=== PATIENT | female | born 1970 | race Caucasian/White ===

== ENCOUNTER 2023-09-29 19:03 | Outpatient (CLI) | payer BC, SELFPAY ==
[2023-09-29 19:01] LABS: Basophils # 0.1 K/mm3 (0-0.2); Basophils % 1.1 % (0.1-2.0); Eosinophils % 10.5 % (0.1-12.0); Hematocrit 44.4 % (37.0-47.0); Hemoglobin 14.5 g/dL (12.2-16.2); Lymphocytes # 2.8 K/mm3 (0.7-4.5); Lymphocytes % 29.2 % (10-50); Mean Corpuscular HGB Conc 32.6 g/dL (31.8-35.4); Mean Corpuscular Hemoglobin 31.5 pg (27.0-31.2); Mean Corpuscular Volume 96.5 fl (81-99); Mean Platelet Volume 9.8 fl (7.4-10.4); Monocytes # 0.9 K/mm3 (0.1-1.0); Monocytes % 9.1 % (1.7-9.3); Neutrophils # 4.8 K/mm3 (1.8-7.8); Platelet Count 301 K/mm3 (142-424); Red Cell Distribution Width 13.9 % (11.5-17.5); White Blood Count 9.6 K/mm3 (4.8-10.8)
[2023-09-29 19:08] LABS: Chloride 103 mmol/L (98-107)
[2023-09-29 19:09] LABS: Potassium 4.1 mmoL/L (3.5-5.1); Sodium 139 mmol/L (136-145)
[2023-09-29 19:11] LABS: Blood Urea Nitrogen 15 mg/dl (7-17); Estimated Glomerular Filt Rate 88 ml/min (>60); GFR (African American) 106 ML/MIN (>60)
[2023-09-29 19:12] LABS: Alanine Aminotransferase 26 U/L (12-78); Albumin Level 4.2 g/dl (3.5-5.0); Albumin/Globulin Ratio 1.3 (1.1-1.8); Alkaline Phosphatase 91 U/L (38-126); Anion Gap 10.1 mEq/L (5-15); Aspartate Amino Transferase 32 U/L (14-36); Bilirubin,Total 0.4 mg/dl (0.2-1.3); Calcium 9.2 mg/dl (8.4-10.2); Carbon Dioxide 30 mmol/L (22.0-30.0); Chol/HDL Ratio 4.6 (1-3.5); Cholesterol 222 mg/dl (140-200); Globulin 3.3 g/dL (1.3-3.2); Glucose 96 mg/dl (74-100); HDL Cholesterol 48 mg/dl (40-60); Total Protein,Serum 7.5 g/dl (6.3-8.2); Triglycerides 212 mg/dl (30-150); VLDL Cholesterol 42 mg/dL (0-40)
[2023-09-29 19:25] LABS: Direct LDL Cholesterol 111.86 mg/dL (100-129)
[2023-09-29 19:28] LABS: 25-OH Vitamin D, Total 31.5 ng/mL (30-100)
[2023-09-29 19:43] LABS: Thyroid Stimulating Hormone 1.48 uIU/mL (0.465-4.68)
[2023-09-29 20:29] LABS: Hemoglobin A1C 5.7 % (4.0-6.0)
== END 2023-09-29 23:59 ==
LOC: LAB.DROPOF 19:03
PROVIDERS: PCP Student in an Organized Health Care Education/Training Program; Visit Provider Student in an Organized Health Care Education/Training Program
DX: I10 Essential (primary) hypertension (principal); R09.89 Other specified symptoms and signs involving the circulatory and respiratory systems; E66.9 Obesity, unspecified; Z68.38 Body mass index [BMI] 38.0-38.9, adult; Z79.899 Other long term (current) drug therapy
CPT/HCPCS: 80053; 80061; 82306; 83036; 84443; 85025

== ENCOUNTER 2023-11-29 13:13 | Inpatient (IN) | payer BC, SELFPAY ==
[2023-11-29] VITALS (10 sets, daily range): BP systolic 137–181; BP diastolic 75–108; PULSE 69–86; RESP 15–20; TEMP 36.5–36.8; O2SAT 96–100; BMI 37.6; BMI 36.9
[2023-11-29 13:57] LABS: Chloride 103 mmol/L (98-107)
--- NOTE | 2023-11-29 13:57 | HMH.EDGENADL ---
Discharge Plan Disposition Chief Complaint: Nausea/Vomiting/Diarrhea Prescriptions Prescriptions: No Action amlodipine 5 mg tablet 5 mg PO DAILY Qty: 30 2RF azelastine 137 mcg (0.1 %) aerosol,spray 1 spray intranasal BID Qty: 30 3RF Rx Instructions: administer into each nostril Referrals Follow up/Referrals: Diann Robins PA [Primary Care Provider] - See instructions Instructions Patient Instructions: DI for Diarrhea and Traveler's Diarrhea -- Adult, DI for Diarrhea and Traveler's Diarrhea -- Child, DI for Nausea -- Adult, DI for Nausea -- Child Discharge ED Provider: Kandice Reyes General Adult HPI <Kandice Reyes DO - Last Filed: 11/29/23 15:33> General Chief complaint: Nausea/Vomiting/Diarrhea Stated complaint: vomiting, diarrhea, weakness Time Seen by Provider: 11/29/23 13:31 Mode of Arrival: Ambulatory Source of Information: Patient Limitations: No Limitations Description of Symptoms (Recalled from ER Triage Doc. by RN): pt presents to ED with c/o nausea, vomitting diarrhea that began thursday. pt reports she took the first ever dose of semaglutide on thursday. History of Present Illness HPI narrative: This patient is a 53-year-old female with history of VERÓNICA, hypertension, and obesity presenting to the emergency department for evaluation with concern for nausea, vomiting, and diarrhea that started on Thursday. She notes that she took her first dose of semaglutide on Thursday, and she has felt awful since then. She is unsure if it is related. She notes that she has had persistent upper abdominal pain in the epigastric region since then. Emesis is nonbloody nonbilious and diarrhea is nonbloody. No other concerns noted at this time. Related Data Previous Rx's Medication Instructions Recorded amlodipine 5 mg tablet 5 mg PO DAILY #30 tabs 09/29/23 azelastine 137 mcg (0.1 %) nasal 1 spray intranasal BID #30 mL 10/15/23 spray aerosol Allergies Allergy/AdvReac Type Severity Reaction Status Date / Time lisinopril AdvReac Mild Cough Verified 11/16/23 15:42 PFSH <DO Morenita Espino Last Filed: 11/29/23 15:33> PFS Disclaimer: The information contained in this section may have been updated after the patient was seen, as this information can be updated by other users. Medical History Sinusitis Cryptic tonsil Goiter Hypertension Melanoma Surgical History History of intestinal surgery H/O endoscopic sinus surgery H/O: hysterectomy H/O section Hx of appendectomy History of total left knee replacement Family History Mother Hypertension Father Hypertension Cancer Social History Smoking Status: Former smoker alcohol intake: never current occupational status: employed Travel in the last 8 weeks: None <Kandice Reyes DO - Last Filed: 11/29/23 15:33> ROS Obtained: Yes All systems reviewed & no additional complaints except as documented Physical Exam <Kandice Reyes DO - Last Filed: 11/29/23 15:33> General General appearance: alert and in no apparent distress Head Head exam: atraumatic and normocephalic Eye Eye exam: Present normal appearance, PERRL and EOMI ENT ENT exam: Present normal exam, normal oropharynx, mucous membranes moist and normal external ear exam Neck Neck exam: Present normal inspection, full ROM and trachea midline; Absent tenderness Chest Chest inspection: Present normal inspection and symmetric chest wall rise; Absent tenderness Respiratory Respiratory exam: Present normal lung sounds bilaterally; Absent respiratory distress, wheezes, stridor or accessory muscle use Cardiovascular Cardiovascular exam: Present regular rate and normal rhythm Abdominal Exam Abdominal exam: Present soft; Absent distention, tenderness or guarding Extremities Exam Extremities exam: Present normal inspection, full ROM and normal capillary refill; Absent tenderness or edema Back Exam Back exam: Present normal inspection and full ROM; Absent tenderness Neurological Exam Neurological exam: Present alert, oriented X3, CN II-XII intact and normal gait; Absent motor sensory deficit Psychiatric Psychiatric exam: Present normal affect and normal mood Skin Skin exam: Present warm and dry Medical Decision Making <Kandice Reyes DO - Last Filed: 11/29/23 15:33> Medical Records Medical records reviewed: Yes I reviewed the patient's medical records. Jonh Inquiry Pt receiving controlled substance: No Vital Signs: 11/29/23 13:14 11/29/23 15:44 11/29/23 17:15 Temperature 97.7 F Temperature Source Oral Pulse Rate 74 85 Pulse Rate [Left Radial] 85 Respiratory Rate 16 Blood Pressure 141/91 H 164/101 H Blood Pressure [Right Arm] 141/96 H Blood Pressure Mean [Right Arm] 111 02 Sat by Pulse Oximetry 96 98 100 Oxygen Delivery Method Room Air Room Air Lab Data Lab results reviewed: Yes I reviewed the patient's lab results. Lab Results 11/29/23 13:28: WBC 13.2 H, RBC 4.94, Hgb 15.9, Hct 49.1 H, MCV 99.4 H, MCH 32.2 H, MCHC 32.4, RDW 14.0, Plt Count 382, MPV 9.7, Neut % (Auto) 81.5 H, Lymph % (Auto) 10.7, [place] % (Auto) 5.9, Eos % (Auto) 1.3, Baso % (Auto) 0.6, Neut # (Auto) 10.8 H, Lymph # (Auto) 1.4, [place] # (Auto) 0.8, Eos # (Auto) 0.2, Baso # (Auto) 0.1, Sodium 140, Potassium 3.8, Chloride 103, Carbon Dioxide 26, Anion Gap 14.8, BUN 28 H, Creatinine 0.80, Estimated Creat Clear 120, Estimated GFR 75, Est GFR ( Amer) 91, Glucose 124 H, Calcium 9.6, Total Bilirubin 0.6, AST 73 H, ALT 112 H, Alkaline Phosphatase 120, Total Protein 8.5 H, Albumin 4.6, Globulin 3.9 H, Albumin/Globulin Ratio 1.2, Lipase 65 11/29/23 14:46: Urine Color Dark yellow, Urine Appearance Clear, Urine pH 6.0, Ur Specific [place] >= 1.030, Urine Protein 1+, Urine Glucose (UA) Negative, Urine Ketones Trace, Urine Blood Negative, Urine Nitrate Negative, Urine Bilirubin 2+ A, Urine Urobilinogen 1.0, Ur Leukocyte Esterase Trace, Urine RBC None, Urine WBC Occasional, Ur Squamous Epith Cells 3-5, Urine Bacteria Trace 11/29/23 13:28 11/29/23 13:28 Orders (Tests/Meds): ED MEDICATIONS Generic Name Dose Route Start Last Admin Trade Name Freq PRN Reason Stop Dose Admin Heparin Sodium (Porcine) 5,000 unit 11/29/23 17:30 Heparin Sodium 5,000 Unit/Ml Vial SQ 12/29/23 17:29 Q8H CHING Lactated Ringer's 1,000 mls @ 150 mls/hr 11/29/23 17:15 11/29/23 17:22 Lactated Ringer's 1000 Ml Bag IV 12/29/23 17:14 150 mls/hr .Q6H40M CHING Administration Sodium Chloride 1,000 mls @ 75 mls/hr 11/29/23 17:30 Sod Chlor 0.9% 1000ml Bag IV 12/29/23 17:29 .[id number] CHING Morphine Sulfate 2 mg 11/29/23 17:30 Morphine 2mg/Ml Syringe IV 12/29/23 17:29 Q4H PRN Severe Pain (7-10) Ondansetron HCl 4 mg 11/29/23 17:30 Ondansetron 4mg/2ml Vial IV 12/29/23 17:29 Q8HP PRN Nausea Sodium Chloride 10 ml 11/29/23 15:27 11/29/23 15:29 Sodium Chloride 0.9% 10ml Syr (Rad Only) IV 12/29/23 15:26 10 ml NEEDED PRN Administration Maintain IV Site Discontinued Medications Generic Name Dose Route Start Last Admin Trade Name Jose Daniel PRN Reason Stop Dose Admin Lactated Ringer's 1,000 mls @ 999 mls/hr 11/29/23 13:49 11/29/23 14:03 Lactated Ringer's 1000 Ml Bag IV 11/29/23 14:49 999 mls/hr .Q1H1M ONE Administration Iopamidol 75 ml 11/29/23 15:27 11/29/23 15:29 Iopamidol-370 (76%);100ml Bottle IV 11/29/23 15:28 75 ml ONCE ONE Administration Ketorolac Tromethamine 15 mg 11/29/23 13:49 11/29/23 14:03 Ketorolac 30mg/Ml Vial IV 11/29/23 13:50 15 mg ONCE ONE Administration Morphine Sulfate 4 mg 11/29/23 17:09 11/29/23 17:25 Morphine 4mg/Ml Syringe IV 11/29/23 17:10 4 mg ONCE ONE Administration Ondansetron HCl 4 mg 11/29/23 13:49 11/29/23 14:03 Ondansetron 4mg/2ml Vial IV 11/29/23 13:50 4 mg ONCE ONE Administration Ondansetron HCl 4 mg 11/29/23 17:09 11/29/23 17:22 Ondansetron 4mg/2ml Vial IV 11/29/23 17:10 4 mg ONCE ONE Administration ORDERS Category Date Time Status CT abdomen pelvis w con Stat Cat Scan 11/29/23 14:28 Completed Consult to General Surgery [CONS] Routine Cons 11/29/23 17:27 Ordered Basic Metabolic Panel AMLAB Lab 11/30/23 06:00 Ordered Basic Metabolic Panel AMLAB Lab 12/01/23 06:00 Ordered Basic Metabolic Panel AMLAB Lab 12/02/23 06:00 Ordered Complete Blood Count Auto Diff AMLAB Lab 11/30/23 06:00 Ordered Complete Blood Count Auto Diff AMLAB Lab 12/01/23 06:00 Ordered Complete Blood Count Auto Diff AMLAB Lab 12/02/23 06:00 Ordered Complete Blood Count Auto Diff Stat Lab 11/29/23 13:28 Completed Comprehensive Metabolic Panel Stat Lab 11/29/23 13:28 Completed Lipase Stat Lab 11/29/23 13:28 Completed Urinalysis and Microscopic Stat Lab 11/29/23 14:46 Completed Medical Decision Narrative: In summary, this patient is a 53-year-old female presenting to the Emergency Department for evaluation of nausea, vomiting, and diarrhea. Differential diagnoses considered include but are not limited to medication adverse reaction, gastroenteritis, colitis, pancreatitis. Ruling out the most morbid conditions drove assessment. On exam, the patient is nontoxic-appearing with benign abdominal exam. Doubt surgical intra-abdominal pathology based on clinical exam. Workup included CBC, CMP, lipase, urinalysis. She is given a bolus of IV fluids as well as IV Toradol and Zofran for symptomatic improvement. On reassessment, the patient is resting comfortably but has had no significant improvement in symptoms. Labs demonstrated very mild transaminitis as well as mild leukocytosis without other acute concerns. This is nonspecific, but could point to intra-abdominal pathology. Given this, CT scan of the abdomen and pelvis with IV contrast was ordered. Patient care signed out to the oncoming provider, Dr. Emerson, pending CT and disposition. <Riley Emerson MD - Last Filed: 11/29/23 17:45> Vital Signs: 11/29/23 13:14 11/29/23 15:44 11/29/23 17:15 Temperature 97.7 F Temperature Source Oral Pulse Rate 74 85 Pulse Rate [Left Radial] 85 Respiratory Rate 16 Blood Pressure 141/91 H 164/101 H Blood Pressure [Right Arm] 141/96 H Blood Pressure Mean [Right Arm] 111 02 Sat by Pulse Oximetry 96 98 100 Oxygen Delivery Method Room Air Room Air Lab Data Lab Results 11/29/23 13:28: WBC 13.2 H, RBC 4.94, Hgb 15.9, Hct 49.1 H, MCV 99.4 H, MCH 32.2 H, MCHC 32.4, RDW 14.0, Plt Count 382, MPV 9.7, Neut % (Auto) 81.5 H, Lymph % (Auto) 10.7, [place] % (Auto) 5.9, Eos % (Auto) 1.3, Baso % (Auto) 0.6, Neut # (Auto) 10.8 H, Lymph # (Auto) 1.4, [place] # (Auto) 0.8, Eos # (Auto) 0.2, Baso # (Auto) 0.1, Sodium 140, Potassium 3.8, Chloride 103, Carbon Dioxide 26, Anion Gap 14.8, BUN 28 H, Creatinine 0.80, Estimated Creat Clear 120, Estimated GFR 75, Est GFR ( Amer) 91, Glucose 124 H, Calcium 9.6, Total Bilirubin 0.6, AST 73 H, ALT 112 H, Alkaline Phosphatase 120, Total Protein 8.5 H, Albumin 4.6, Globulin 3.9 H, Albumin/Globulin Ratio 1.2, Lipase 65 11/29/23 14:46: Urine Color Dark yellow, Urine Appearance Clear, Urine pH 6.0, Ur Specific [place] >= 1.030, Urine Protein 1+, Urine Glucose (UA) Negative, Urine Ketones Trace, Urine Blood Negative, Urine Nitrate Negative, Urine Bilirubin 2+ A, Urine Urobilinogen 1.0, Ur Leukocyte Esterase Trace, Urine RBC None, Urine WBC Occasional, Ur Squamous Epith Cells 3-5, Urine Bacteria Trace Orders (Tests/Meds): ED MEDICATIONS Generic Name Dose Route Start Last Admin Trade Name Freq PRN Reason Stop Dose Admin Heparin Sodium (Porcine) 5,000 unit 11/29/23 17:30 Heparin Sodium 5,000 Unit/Ml Vial SQ 12/29/23 17:29 Q8H CHING Lactated Ringer's 1,000 mls @ 150 mls/hr 11/29/23 17:15 11/29/23 17:22 Lactated Ringer's 1000 Ml Bag IV 12/29/23 17:14 150 mls/hr .Q6H40M CHING Administration Sodium Chloride 1,000 mls @ 75 mls/hr 11/29/23 17:30 Sod Chlor 0.9% 1000ml Bag IV 12/29/23 17:29 .[id number] CHING Morphine Sulfate 2 mg 11/29/23 17:30 Morphine 2mg/Ml Syringe IV 12/29/23 17:29 Q4H PRN Severe Pain (7-10) Ondansetron HCl 4 mg 11/29/23 17:30 Ondansetron 4mg/2ml Vial IV 12/29/23 17:29 Q8HP PRN Nausea Sodium Chloride 10 ml 11/29/23 15:27 11/29/23 15:29 Sodium Chloride 0.9% 10ml Syr (Rad Only) IV 12/29/23 15:26 10 ml NEEDED PRN Administration Maintain IV Site Discontinued Medications Generic Name Dose Route Start Last Admin Trade Name Freq PRN Reason Stop Dose Admin Lactated Ringer's 1,000 mls @ 999 mls/hr 11/29/23 13:49 11/29/23 14:03 Lactated Ringer's 1000 Ml Bag IV 11/29/23 14:49 999 mls/hr .Q1H1M ONE Administration Iopamidol 75 ml 11/29/23 15:27 11/29/23 15:29 Iopamidol-370 (76%);100ml Bottle IV 11/29/23 15:28 75 ml ONCE ONE Administration Ketorolac Tromethamine 15 mg 11/29/23 13:49 11/29/23 14:03 Ketorolac 30mg/Ml Vial IV 11/29/23 13:50 15 mg ONCE ONE Administration Morphine Sulfate 4 mg 11/29/23 17:09 11/29/23 17:25 Morphine 4mg/Ml Syringe IV 11/29/23 17:10 4 mg ONCE ONE Administration Ondansetron HCl 4 mg 11/29/23 13:49 11/29/23 14:03 Ondansetron 4mg/2ml Vial IV 11/29/23 13:50 4 mg ONCE ONE Administration Ondansetron HCl 4 mg 11/29/23 17:09 11/29/23 17:22 Ondansetron 4mg/2ml Vial IV 11/29/23 17:10 4 mg ONCE ONE Administration ORDERS Category Date Time Status CT abdomen pelvis w con Stat Cat Scan 11/29/23 14:28 Completed Consult to General Surgery [CONS] Routine Cons 11/29/23 17:27 Ordered Basic Metabolic Panel AMLAB Lab 11/30/23 06:00 Ordered Basic Metabolic Panel AMLAB Lab 12/01/23 06:00 Ordered Basic Metabolic Panel AMLAB Lab 12/02/23 06:00 Ordered Complete Blood Count Auto Diff AMLAB Lab 11/30/23 06:00 Ordered Complete Blood Count Auto Diff AMLAB Lab 12/01/23 06:00 Ordered Complete Blood Count Auto Diff AMLAB Lab 12/02/23 06:00 Ordered Complete Blood Count Auto Diff Stat Lab 11/29/23 13:28 Completed Comprehensive Metabolic Panel Stat Lab 11/29/23 13:28 Completed Lipase Stat Lab 11/29/23 13:28 Completed Urinalysis and Microscopic Stat Lab 11/29/23 14:46 Completed Medical Decision Narrative: In summary, this patient is a 53-year-old female presenting to the Emergency Department for evaluation of nausea, vomiting, and diarrhea. Differential diagnoses considered include but are not limited to medication adverse reaction, gastroenteritis, colitis, pancreatitis. Ruling out the most morbid conditions drove assessment. On exam, the patient is nontoxic-appearing with benign abdominal exam. Doubt surgical intra-abdominal pathology based on clinical exam. Workup included CBC, CMP, lipase, urinalysis. She is given a bolus of IV fluids as well as IV Toradol and Zofran for symptomatic improvement. On reassessment, the patient is resting comfortably but has had no significant improvement in symptoms. Labs demonstrated very mild transaminitis as well as mild leukocytosis without other acute concerns. This is nonspecific, but could point to intra-abdominal pathology. Given this, CT scan of the abdomen and pelvis with IV contrast was ordered. Patient care signed out to the oncoming provider, Dr. Emerson, pending CT and disposition. Reassessment this is Dr. Emerson 5:44 PM I took over from Dr. Reyes CT scan performed which I personally interpreted also discussed with the radiologist which shows his small bowel obstruction. From historical standpoint this is most likely because from adhesions. No obvious transition point or high-grade. Serial abdominal exams are relatively benign patient not actively vomiting stomach is decompressed on CT scan no indication for decompression with NG tube at the moment. She will need to be admitted for surgical consultation IV fluids bowel rest and to make sure that she has progression and improvement in her symptoms. I discussed the case with the patient as well as with Dr. Amador [facility] who agreed to be admitted for further evaluation and management. Critical Care <Kandice Reyes DO - Last Filed: 11/29/23 15:33> Critical Care Time Critical Care Time: No <Riley Emerson MD - Last Filed: 11/29/23 17:45> Critical Care Time Critical Care Time: Yes Attestation: On 11/29/23, the high probability of a clinically significant, sudden or life threatening deterioration of the following system(s) required my full and direct attention, intervention and personal management. The time I documented below is in addition to time spent performing reported procedures but includes the following listed in this critical care notation. Total Time Total Critical Care Time: 35
[2023-11-29 13:58] LABS: Potassium 3.8 mmoL/L (3.5-5.1); Sodium 140 mmol/L (136-145)
[2023-11-29 14:00] LABS: Alanine Aminotransferase 112 U/L (12-78); Albumin Level 4.6 g/dl (3.5-5.0); Albumin/Globulin Ratio 1.2 (1.1-1.8); Alkaline Phosphatase 120 U/L (38-126); Aspartate Amino Transferase 73 U/L (14-36); Bilirubin,Total 0.6 mg/dl (0.2-1.3); Blood Urea Nitrogen 28 mg/dl (7-17); Calcium 9.6 mg/dl (8.4-10.2); Creatinine Clearance Estimated 120 mL/min (50-200); Estimated Glomerular Filt Rate 75 ml/min (>60); GFR (African American) 91 ML/MIN (>60); Globulin 3.9 g/dL (1.3-3.2); Glucose 124 mg/dl (74-100); Lipase 65 U/L (23-300); Total Protein,Serum 8.5 g/dl (6.3-8.2)
[2023-11-29] MEDS: ONDANSETRON 4MG/2ML VIAL 4 MG IV ×2 (14:03→17:22)
[2023-11-29] MEDS: LACTATED RINGERS 1000ML 1,000 ML 999 ML IV (14:03)
[2023-11-29] MEDS: KETOROLAC 30MG/ML VIAL 15 MG IV (14:03)
[2023-11-29 14:17] LABS: Basophils # 0.1 K/mm3 (0-0.2); Basophils % 0.6 % (0.1-2.0); Eosinophils # 0.2 K/mm3 (0.0-0.4); Eosinophils % 1.3 % (0.1-12.0); Hematocrit 49.1 % (37.0-47.0); Hemoglobin 15.9 g/dL (12.2-16.2); Lymphocytes # 1.4 K/mm3 (0.7-4.5); Lymphocytes % 10.7 % (10-50); Mean Corpuscular HGB Conc 32.4 g/dL (31.8-35.4); Mean Corpuscular Hemoglobin 32.2 pg (27.0-31.2); Mean Corpuscular Volume 99.4 fl (81-99); Mean Platelet Volume 9.7 fl (7.4-10.4); Monocytes # 0.8 K/mm3 (0.1-1.0); Monocytes % 5.9 % (1.7-9.3); Neutrophils # 10.8 K/mm3 (1.8-7.8); Neutrophils % 81.5 % (37.0-80.0); Platelet Count 382 K/mm3 (142-424); Red Blood Count 4.94 M/mm3 (4.20-5.40); White Blood Count 13.2 K/mm3 (4.8-10.8)
--- NOTE | 2023-11-29 14:28 | CT_ITS ---
PROCEDURE INFORMATION: Exam: CT Abdomen And Pelvis With Contrast Exam date and time: 11/29/2023 3:18 PM Age: 53 years old Clinical indication: Abdominal pain; Prior surgery; Surgery date: 6+ months; Surgery type: Appendix & gb removed, bowel resection, and hysterectomy. ; Additional info: Upper abd pain, intractable n/v TECHNIQUE: Imaging protocol: Computed tomography of the abdomen and pelvis with contrast. Radiation optimization: All CT scans at this facility use at least one of these dose optimization techniques: automated exposure control; mA and/or kV adjustment per patient size (includes targeted exams where dose is matched to clinical indication); or iterative reconstruction. Contrast material: ISOVUE; Contrast volume: 75 ml; Contrast route: IV; COMPARISON: No relevant prior studies available. FINDINGS: Liver: Normal. No mass. Gallbladder and bile ducts: Previous cholecystectomy. Pancreas: Normal. No ductal dilation. Spleen: Normal. No splenomegaly. Adrenal glands: Normal. No mass. Kidneys and ureters: Simple 1.5 cm cortical renal cyst midpole right kidney. No hydronephrosis. Stomach and bowel: Distended small bowel loops containing fluid in the mid and left abdomen, measuring up to 3.8 cm. Transition zone not definitively seen. Colon decompressed. Compatible with small bowel obstruction. Bowel anastomosis in the right lower quadrant. Appendix: No evidence of appendicitis. Intraperitoneal space: Minimal pelvic ascites. Vasculature: Unremarkable. No abdominal aortic aneurysm. Lymph nodes: Unremarkable. No enlarged lymph nodes. Urinary bladder: Unremarkable as visualized. Reproductive: Previous hysterectomy. Bones/joints: Unremarkable. No acute fracture. Soft tissues: Unremarkable. IMPRESSION: 1. Distended small bowel loops containing fluid in the mid and left abdomen, measuring up to 3.8 cm. Transition zone not definitively seen. Colon decompressed. Compatible with small bowel obstruction. 2. Minimal pelvic ascites. COMMENTS: Consistent with the [employer]'s Incidental Findings Committee white paper (J Am Jenaro Radiol 2018): Any incidental renal lesion less than 1 cm or classified as too small to characterize, or any incidental cystic renal lesion characterized as simple-appearing, is likely benign. No follow-up imaging is recommended for these lesions per consensus recommendations based on imaging criteria.
[2023-11-29 14:29] LABS: Anion Gap 14.8 mEq/L (5-15); Carbon Dioxide 26 mmol/L (22.0-30.0)
[2023-11-29 15:04] LABS: Appearance,Urine CLEAR (Clear); Blood, Urine Negative (Negative); Color,Urine DARK YELLOW (Yellow); Glucose,Urine (UA) Negative (Negative); Ketones,Urine TRACE (Negative); Microscopic, Urine URINE MICROSCOPIC (MICROSCOPIC); Nitrate,Urine Negative (Negative); Protein,Urine 1+ (Negative); Specific Gravity, Urine >= 1.030 (1.005-1.030)
[2023-11-29 15:05] LABS: Leukocyte Esterase,Urine TRACE (Negative)
[2023-11-29 15:11] LABS: Bilirubin,Urine 2+ (Negative)
[2023-11-29] MEDS: IOPAMIDOL-370 (76%);100ML BOTTLE 75 ML IV (15:29)
[2023-11-29] MEDS: SODIUM CHLORIDE 0.9% 10ML SYR (RAD ONLY) 10 ML IV (15:29)
[2023-11-29 15:53] LABS: Bacteria,Urine Trace /lpf; WBC,Urine Occasional #/hpf (0-3)
[2023-11-29] MEDS: LACTATED RINGERS 1000ML 1,000 ML 150 ML IV (17:22)
[2023-11-29] MEDS: MORPHINE 4MG/ML SYRINGE 4 MG IV (17:25)
--- NOTE | 2023-11-29 17:26 | PC.NURSE ---
speaking with hospitalist about admission
--- NOTE | 2023-11-29 17:39 | PC.NURSE ---
housekeeping department worker aware of admission of SBO
--- NOTE | 2023-11-29 18:19 | PC.NURSE ---
report called to hilario on second floor
--- NOTE | 2023-11-29 18:23 | EXP.HP ---
History of Present Illness *Admission Date: 11/29/23 *Reason for visit:: abdominal pain [facility]SH [facility] Disclaimer: The information contained in this section may have been updated after the patient was seen, as this information can be updated by other users. Medical History Sinusitis Cryptic tonsil Goiter Hypertension Melanoma Surgical History History of intestinal surgery H/O endoscopic sinus surgery H/O: hysterectomy H/O section Hx of appendectomy History of total left knee replacement Family History Mother Hypertension Father Hypertension Cancer Social History Smoking Status: Former smoker alcohol intake: never current occupational status: employed Travel in the last 8 weeks: None Review of Systems Review of Systems Review of systems (narrative): as per hpi Meds Home Medications and Allergies Home Medications Medication Instructions Recorded Confirmed Type amlodipine 5 mg tablet 5 mg PO DAILY #30 tabs 09/29/23 11/16/23 Rx azelastine 137 mcg (0.1 %) nasal 1 spray intranasal BID #30 mL 10/15/23 11/16/23 Rx spray aerosol New Prescriptions to Start Prescriptions: Allergies Allergy/AdvReac Type Severity Reaction Status Date / Time lisinopril AdvReac Mild Cough Verified 11/16/23 15:42 Exam Data for Last 24 hours Vital signs and Labs for Last 24 Hours: Temp Pulse Resp BP Pulse Ox O2 Del Method 97.7 F 78 20 164/95 H 97 Room Air 11/29/23 13:14 11/29/23 18:15 11/29/23 18:00 11/29/23 18:15 11/29/23 18:15 11/29/23 15:44 Laboratory Results - last 24 hr 11/29/23 13:28: WBC 13.2 H, RBC 4.94, Hgb 15.9, Hct 49.1 H, MCV 99.4 H, MCH 32.2 H, MCHC 32.4, RDW 14.0, Plt Count 382, MPV 9.7, Neut % (Auto) 81.5 H, Lymph % (Auto) 10.7, [place] % (Auto) 5.9, Eos % (Auto) 1.3, Baso % (Auto) 0.6, Neut # (Auto) 10.8 H, Lymph # (Auto) 1.4, [place] # (Auto) 0.8, Eos # (Auto) 0.2, Baso # (Auto) 0.1, Sodium 140, Potassium 3.8, Chloride 103, Carbon Dioxide 26, Anion Gap 14.8, BUN 28 H, Creatinine 0.80, Estimated Creat Clear 120, Estimated GFR 75, Est GFR ( Amer) 91, Glucose 124 H, Calcium 9.6, Total Bilirubin 0.6, AST 73 H, ALT 112 H, Alkaline Phosphatase 120, Total Protein 8.5 H, Albumin 4.6, Globulin 3.9 H, Albumin/Globulin Ratio 1.2, Lipase 65 11/29/23 14:46: Urine Color Dark yellow, Urine Appearance Clear, Urine pH 6.0, Ur Specific [place] >= 1.030, Urine Protein 1+, Urine Glucose (UA) Negative, Urine Ketones Trace, Urine Blood Negative, Urine Nitrate Negative, Urine Bilirubin 2+ A, Urine Urobilinogen 1.0, Ur Leukocyte Esterase Trace, Urine RBC None, Urine WBC Occasional, Ur Squamous Epith Cells 3-5, Urine Bacteria Trace I & O for Last 24 hours: Intake & Output 11/26/23 11/27/23 11/28/23 11/29/23 23:59 23:59 23:59 23:59 Weight 93.44 kg Constitutional Constitutional: no acute distress *Routine HEENT Exam Head: Present normocephalic Eye: Present EOMI and PERRL ENT: Present mucous membranes moist *Routine Neck Exam Neck: Present supple; Absent lymphadenopathy *Routine Respiratory Exam Respiratory: Present CTA bilaterally *Routine Cardiovascular Exam Cardiovascular: Present RRR *Routine Abdominal Exam Abdominal: Present soft and tenderness *Routine Rectal Exam Rectal:: deferred *Routine Genitalia Exam Genitalia:: deferred *Routine Extremities Exam Extremities: Absent cyanosis, clubbing or edema *Routine Skin Exam Skin: Present warm; Absent rash *Routine Neurological Exam Neurological: Present alert and oriented X3 Assessment and Plan *Assessment and plan (1) SBO (small bowel obstruction): Status: Acute Category: Medical Code(s): K56.609 - Unspecified intestinal obstruction, unspecified as to partial versus complete obstruction Plan Patient is a 53-year-old female who presents to the hospital due to nausea vomiting diarrhea for the past few days. According to patient she recently started using Ozempic last week and she thought her symptoms could be due to Ozempic. Patient mentions her vomiting is nonbloody, diarrhea is nonbloody. He also complains of persistent upper abdominal pain. Patient has past medical history of hypertension and goiter obstructive sleep apnea obesity. Assessment Nausea vomiting diarrhea Small bowel obstruction Leukocytosis likely reactive Start IV fluids Plan continue Consult general surgery N.p.o. Hypertension -As needed hydralazine with parameters Obesity Obstructive sleep apnea -Counseled patient on weight loss DVT prophylaxis-heparin
--- NOTE | 2023-11-29 18:47 | PC.NURSE ---
arrived by w/c from ED
[2023-11-29] MEDS: HEPARIN SODIUM 5,000 UNIT/ML VIAL 5000 UNIT SQ (20:22)
[2023-11-29] MEDS: 0.9 % SODIUM CHLORIDE 1000ML 1,000 ML 75 ML IV (20:22)
[2023-11-29] MEDS: MORPHINE 2MG/ML SYRINGE 2 MG IV (21:51)
[2023-11-30] MEDS: ACETAMINOPHEN 325MG TAB 650 MG PO (01:39)
[2023-11-30] MEDS: MORPHINE 2MG/ML SYRINGE 2 MG IV ×4 (01:55→20:34)
--- NOTE | 2023-11-30 02:06 | PC.NURSE ---
Patient called RN into the room because patient was concerned over not voiding. RN bladder scanned patient and found that patient had 386ml in the bladder. Patient got up and voided in the bathroom. RN post void bladder scanned and found 1ml in the bladder.
[2023-11-30 04:00] VITALS: BP 139/83; PULSE 69; RESP 16; TEMP 36.7; O2SAT 97; BMI 37.0
[2023-11-30] MEDS: HEPARIN SODIUM 5,000 UNIT/ML VIAL 5000 UNIT SQ ×3 (04:37→20:16)
--- NOTE | 2023-11-30 05:16 | PC.NURSE ---
Patient has had a good night, has slept on and off through the shift. Patient has been NPO all shift. Patient did complain of a headache but was controlled with tylenol. See other nurses not for other issues this shift. Patient only complaint this shift has been pain, patient has not complained of nausea. No other issues noted by patient
[2023-11-30 07:24] LABS: Basophils # 0.1 K/mm3 (0-0.2); Eosinophils # 0.4 K/mm3 (0.0-0.4); Lymphocytes # 2.1 K/mm3 (0.7-4.5); Monocytes # 0.6 K/mm3 (0.1-1.0)
[2023-11-30 07:26] VITALS: BP 141/78; PULSE 71; RESP 18; TEMP 36.4; O2SAT 100
[2023-11-30 07:35] LABS: Basophils % 0.9 % (0.1-2.0); Eosinophils % 4.5 % (0.1-12.0); Hematocrit 40.5 % (37.0-47.0); Lymphocytes % 24.6 % (10-50); Mean Corpuscular HGB Conc 32.1 g/dL (31.8-35.4); Mean Corpuscular Hemoglobin 31.7 pg (27.0-31.2); Mean Corpuscular Volume 98.6 fl (81-99); Mean Platelet Volume 9.4 fl (7.4-10.4); Monocytes % 7.3 % (1.7-9.3); Neutrophils # 5.4 K/mm3 (1.8-7.8); Neutrophils % 62.6 % (37.0-80.0); Platelet Count 271 K/mm3 (142-424); Red Blood Count 4.11 M/mm3 (4.20-5.40); White Blood Count 8.6 K/mm3 (4.8-10.8)
[2023-11-30 07:36] LABS: Anion Gap 12.5 mEq/L (5-15); Blood Urea Nitrogen 22 mg/dl (7-17); Calcium 8.4 mg/dl (8.4-10.2); Carbon Dioxide 24 mmol/L (22.0-30.0); Chloride 107 mmol/L (98-107); Creatinine Clearance Estimated 134 mL/min (50-200); Estimated Glomerular Filt Rate 88 ml/min (>60); GFR (African American) 106 ML/MIN (>60); Glucose 78 mg/dl (74-100); Potassium 3.5 mmoL/L (3.5-5.1); Sodium 140 mmol/L (136-145)
--- NOTE | 2023-11-30 07:41 | HMH.PHAINT1 ---
Pharmacy Intervention Comments: HOME MEDICATION LIST VERIFIED USING LIST FROM OUTPATIENT PHARMACY
[2023-11-30] MEDS: 0.9 % SODIUM CHLORIDE 1000ML 1,000 ML 75 ML IV (09:31)
--- NOTE | 2023-11-30 09:31 | P.CONS_ITS ---
History of Present Illness *Admission Date: 11/29/23 *Reason for visit:: Small bowel obstruction *History of present illness: Patient is a 53-year-old female from [employer] with a history of obstructive sleep apnea, hypertension. She has previously had several C- sections, hysterectomy at which time she required apparent intestinal surgery which sounds like enterotomy repair, appendectomy (large paramedian exploratory surgery for perforated appendicitis), ventral hernia repair, cholecystectomy. Patient had recently started Ozempic and was given her first dose on 11/24/2023. She states that since that time she has felt ill. She describes upper abdominal pain with nausea and nonbilious vomiting with associated diarrhea beginning shortly thereafter. She presented to the emergency department on 11/29/2023. Evaluation in the emergency department revealed slight transaminitis and mild leukocytosis. She underwent a CT scan. This revealed distended small bowel loops containing fluid in the mid and left abdomen measuring up to 3.8 cm. Transition zone not definitively seen. Colon decompressed. Compatible with small bowel obstruction. She was admitted for inpatient management. She did not have a nasogastric tube placed. Surgical consultation was apparently ordered. Patient has continued to require some pain medication. She remains bloated. She has had nausea. [facility] Disclaimer: The information contained in this section may have been updated after the patient was seen, as this information can be updated by other users. Medical History Sinusitis Cryptic tonsil Goiter Hypertension Melanoma Surgical History History of intestinal surgery H/O endoscopic sinus surgery H/O: hysterectomy H/O section Hx of appendectomy History of total left knee replacement Family History Mother Hypertension Father Hypertension Cancer Social History (Updated 11/29/23 @ 19:01 by Carltoa Clinton RN) Smoking Status: Former smoker alcohol intake: never current occupational status: employed Travel in the last 8 weeks: None Review of Systems Review of Systems Review of systems:: pertinent systems reviewed and negative unless documented below Meds Home Medications and Allergies Home Medications Medication Instructions Recorded Confirmed Type amlodipine 5 mg tablet 5 mg PO DAILY #30 tabs 09/29/23 11/29/23 Rx azelastine 137 mcg (0.1 %) nasal 1 spray intranasal BID #30 mL 10/15/23 11/29/23 Rx spray aerosol semaglutide (weight loss) 0.25 0.25 mg SQ WEEKLY 11/29/23 11/29/23 History mg/0.5 mL subcutaneous pen injector New Prescriptions to Start Prescriptions: Allergies Allergy/AdvReac Type Severity Reaction Status Date / Time lisinopril AdvReac Mild Cough Verified 11/29/23 18:51 Exam (Inpt) Vital signs and Labs for Last 24 Hours: Temp Pulse Resp BP Pulse Ox O2 Del Method 97.6 F 71 18 141/78 H 100 Room Air 11/30/23 07:26 11/30/23 07:26 11/30/23 07:26 11/30/23 07:26 11/30/23 07:26 11/30/23 07:26 Laboratory Results - last 24 hr 11/29/23 13:28: WBC 13.2 H, RBC 4.94, Hgb 15.9, Hct 49.1 H, MCV 99.4 H, MCH 32.2 H, MCHC 32.4, RDW 14.0, Plt Count 382, MPV 9.7, Neut % (Auto) 81.5 H, Lymph % (Auto) 10.7, [place] % (Auto) 5.9, Eos % (Auto) 1.3, Baso % (Auto) 0.6, Neut # (Auto) 10.8 H, Lymph # (Auto) 1.4, [place] # (Auto) 0.8, Eos # (Auto) 0.2, Baso # (Auto) 0.1, Sodium 140, Potassium 3.8, Chloride 103, Carbon Dioxide 26, Anion Gap 14.8, BUN 28 H, Creatinine 0.80, Estimated Creat Clear 120, Estimated GFR 75, Est GFR ( Amer) 91, Glucose 124 H, Calcium 9.6, Total Bilirubin 0.6, AST 73 H, ALT 112 H, Alkaline Phosphatase 120, Total Protein 8.5 H, Albumin 4.6, Globulin 3.9 H, Albumin/Globulin Ratio 1.2, Lipase 65 11/29/23 14:46: Urine Color Dark yellow, Urine Appearance Clear, Urine pH 6.0, Ur Specific [place] >= 1.030, Urine Protein 1+, Urine Glucose (UA) Negative, Urine Ketones Trace, Urine Blood Negative, Urine Nitrate Negative, Urine Bilirubin 2+ A, Urine Urobilinogen 1.0, Ur Leukocyte Esterase Trace, Urine RBC None, Urine WBC Occasional, Ur Squamous Epith Cells 3-5, Urine Bacteria Trace 11/30/23 06:53: WBC 8.6 D, RBC 4.11 L, Hgb 13.0 D, Hct 40.5, MCV 98.6, MCH 31.7 H, MCHC 32.1, RDW 14.0, Plt Count 271 D, MPV 9.4, Neut % (Auto) 62.6, Lymph % (Auto) 24.6, [place] % (Auto) 7.3, Eos % (Auto) 4.5, Baso % (Auto) 0.9, Neut # (Auto) 5.4, Lymph # (Auto) 2.1, [place] # (Auto) 0.6, Eos # (Auto) 0.4, Baso # (Auto) 0.1, Sodium 140, Potassium 3.5, Chloride 107, Carbon Dioxide 24, Anion Gap 12.5, BUN 22 H, Creatinine 0.70, Estimated Creat Clear 134, Estimated GFR 88, Est GFR ( Amer) 106, Glucose 78 D, Calcium 8.4 I & O for Labs for Last 24 Hours: Intake & Output 11/27/23 11/28/23 11/29/23 11/30/23 11:59 11:59 11:59 11:59 Intake Total 966 / 966 Output Total 0 / 0 Balance 966 / 966 Weight 201 lb 3.2 oz Constitutional: no acute distress Head: Present normocephalic Neck: Present normal inspection Respiratory: Present CTA bilaterally Cardiac: Present Regular Rate GI: Present soft, distention and tenderness Rectal (female): Present deferred (female): Present deferred Results Labs 11/30/23 06:53 11/30/23 06:53 Labs: Laboratory Results - last 24 hr 11/29/23 13:28: WBC 13.2 H, RBC 4.94, Hgb 15.9, Hct 49.1 H, MCV 99.4 H, MCH 32.2 H, MCHC 32.4, RDW 14.0, Plt Count 382, MPV 9.7, Neut % (Auto) 81.5 H, Lymph % (Auto) 10.7, [place] % (Auto) 5.9, Eos % (Auto) 1.3, Baso % (Auto) 0.6, Neut # (Auto) 10.8 H, Lymph # (Auto) 1.4, [place] # (Auto) 0.8, Eos # (Auto) 0.2, Baso # (Auto) 0.1, Sodium 140, Potassium 3.8, Chloride 103, Carbon Dioxide 26, Anion Gap 14.8, BUN 28 H, Creatinine 0.80, Estimated Creat Clear 120, Estimated GFR 75, Est GFR ( Amer) 91, Glucose 124 H, Calcium 9.6, Total Bilirubin 0.6, AST 73 H, ALT 112 H, Alkaline Phosphatase 120, Total Protein 8.5 H, Albumin 4.6, Globulin 3.9 H, Albumin/Globulin Ratio 1.2, Lipase 65 11/29/23 14:46: Urine Color Dark yellow, Urine Appearance Clear, Urine pH 6.0, Ur Specific [place] >= 1.030, Urine Protein 1+, Urine Glucose (UA) Negative, Urine Ketones Trace, Urine Blood Negative, Urine Nitrate Negative, Urine Bilirubin 2+ A, Urine Urobilinogen 1.0, Ur Leukocyte Esterase Trace, Urine RBC None, Urine WBC Occasional, Ur Squamous Epith Cells 3-5, Urine Bacteria Trace 11/30/23 06:53: WBC 8.6 D, RBC 4.11 L, Hgb 13.0 D, Hct 40.5, MCV 98.6, MCH 31.7 H, MCHC 32.1, RDW 14.0, Plt Count 271 D, MPV 9.4, Neut % (Auto) 62.6, Lymph % (Auto) 24.6, [place] % (Auto) 7.3, Eos % (Auto) 4.5, Baso % (Auto) 0.9, Neut # (Auto) 5.4, Lymph # (Auto) 2.1, [place] # (Auto) 0.6, Eos # (Auto) 0.4, Baso # (Auto) 0.1, Sodium 140, Potassium 3.5, Chloride 107, Carbon Dioxide 24, Anion Gap 12.5, BUN 22 H, Creatinine 0.70, Estimated Creat Clear 134, Estimated GFR 88, Est GFR ( Amer) 106, Glucose 78 D, Calcium 8.4 Assessment and Plan *Assessment and plan (1) SBO (small bowel obstruction): Status: Acute Category: Medical Code(s): K56.609 - Unspecified intestinal obstruction, unspecified as to partial versus complete obstruction Plan Patient likely does have partial obstruction given prior history and ongoing symptomatology. Plan for attempt at nonoperative management initially. Place nasogastric tube to continuous low wall suction. Continue with serial abdominal examination and nasogastric tube decompression with bowel rest. If symptoms remain refractory to nonoperative management could require operative intervention.
[2023-11-30] MEDS: ONDANSETRON 4MG/2ML VIAL 4 MG IV (09:37)
[2023-11-30 11:48] VITALS: BP 153/97; PULSE 68; RESP 22; TEMP 36.5; O2SAT 98
--- NOTE | 2023-11-30 12:42 | P.PN_ITS ---
Subjective *Date: 11/30/23 *Time: 12:42 Interval history: Continues to have nausea and abdominal discomfort. Hypoactive bowel sounds on exam. Denies any shortness of breath or chest pain, no diarrhea or bowel movement since admission Medical Exam Vital signs and Labs for Last 24 Hours: Vital Signs Temp Pulse Pulse Resp BP BP Pulse Ox 11/30/23 11:48 97.7 F 68 22 153/97 H 98 11/30/23 09:37 11/30/23 07:50 11/30/23 07:26 97.6 F 71 18 141/78 H 100 11/30/23 06:53 11/30/23 05:00 11/30/23 04:00 98.0 F 69 16 139/83 97 11/30/23 03:00 11/30/23 01:00 11/29/23 23:00 11/29/23 21:00 11/29/23 20:00 11/29/23 20:00 97.9 F 69 17 137/75 99 11/29/23 19:00 11/29/23 18:59 98.3 F 86 18 152/93 H 97 11/29/23 18:45 98.0 F 72 15 152/93 H 11/29/23 18:30 72 20 152/93 H 98 11/29/23 18:15 78 164/95 H 97 11/29/23 18:00 75 20 160/96 H 97 11/29/23 17:30 78 20 181/108 H 97 11/29/23 17:15 85 164/101 H 100 11/29/23 15:44 74 141/91 H 98 11/29/23 13:14 97.7 F 85 16 141/96 H 96 O2 Del Method 11/30/23 11:48 Room Air 11/30/23 09:37 Room Air 11/30/23 07:50 Room Air 11/30/23 07:26 Room Air 11/30/23 06:53 Room Air 11/30/23 05:00 Room Air 11/30/23 04:00 Room Air 11/30/23 03:00 Room Air 11/30/23 01:00 Room Air 11/29/23 23:00 Room Air 11/29/23 21:00 Room Air 11/29/23 20:00 Room Air 11/29/23 20:00 Room Air 11/29/23 19:00 Room Air 11/29/23 18:59 Room Air 11/29/23 18:45 11/29/23 18:30 11/29/23 18:15 11/29/23 18:00 11/29/23 17:30 11/29/23 17:15 11/29/23 15:44 Room Air 11/29/23 13:14 Room Air Intake and Output 11/29/23 11/30/23 11/30/23 23:59 07:59 15:59 Intake Total 0 / 966 966 / 966 Output Total 0 / 300 300 / 300 Balance 0 / 666 666 / 666 Intake: Intake, Oral Amount 0 / 0 0 / 0 Intake, Total IV Amount 966 / 966 0.9 % Sodium Chloride 1000ML 1, 966 / 966 000 ml @ 75 mls/hr IV .[id number] [facility] Rx#:[id number] Output: Output, Urine Amount 0 / 300 300 / 300 Other: Number of Unmeasured Voids 1 1 Weight 91.654 kg 91.263 kg Patient Weight 11/30/23 23:59 Weight 91.263 kg Laboratory Results - last 24 hr 11/29/23 13:28: WBC 13.2 H, RBC 4.94, Hgb 15.9, Hct 49.1 H, MCV 99.4 H, MCH 32.2 H, MCHC 32.4, RDW 14.0, Plt Count 382, MPV 9.7, Neut % (Auto) 81.5 H, Lymph % (Auto) 10.7, [place] % (Auto) 5.9, Eos % (Auto) 1.3, Baso % (Auto) 0.6, Neut # (Auto) 10.8 H, Lymph # (Auto) 1.4, [place] # (Auto) 0.8, Eos # (Auto) 0.2, Baso # (Auto) 0.1, Sodium 140, Potassium 3.8, Chloride 103, Carbon Dioxide 26, Anion Gap 14.8, BUN 28 H, Creatinine 0.80, Estimated Creat Clear 120, Estimated GFR 75, Est GFR ( Amer) 91, Glucose 124 H, Calcium 9.6, Total Bilirubin 0.6, AST 73 H, ALT 112 H, Alkaline Phosphatase 120, Total Protein 8.5 H, Albumin 4.6, Globulin 3.9 H, Albumin/Globulin Ratio 1.2, Lipase 65 11/29/23 14:46: Urine Color Dark yellow, Urine Appearance Clear, Urine pH 6.0, Ur Specific [place] >= 1.030, Urine Protein 1+, Urine Glucose (UA) Negative, Urine Ketones Trace, Urine Blood Negative, Urine Nitrate Negative, Urine Bilirubin 2+ A, Urine Urobilinogen 1.0, Ur Leukocyte Esterase Trace, Urine RBC None, Urine WBC Occasional, Ur Squamous Epith Cells 3-5, Urine Bacteria Trace 11/30/23 06:53: WBC 8.6 D, RBC 4.11 L, Hgb 13.0 D, Hct 40.5, MCV 98.6, MCH 31.7 H, MCHC 32.1, RDW 14.0, Plt Count 271 D, MPV 9.4, Neut % (Auto) 62.6, Lymph % (Auto) 24.6, [place] % (Auto) 7.3, Eos % (Auto) 4.5, Baso % (Auto) 0.9, Neut # (Auto) 5.4, Lymph # (Auto) 2.1, [place] # (Auto) 0.6, Eos # (Auto) 0.4, Baso # (Auto) 0.1, Sodium 140, Potassium 3.5, Chloride 107, Carbon Dioxide 24, Anion Gap 12.5, BUN 22 H, Creatinine 0.70, Estimated Creat Clear 134, Estimated GFR 88, Est GFR ( Amer) 106, Glucose 78 D, Calcium 8.4 I & O for Labs for Last 24 Hours: Intake & Output 11/27/23 11/28/23 11/29/23 11/30/23 23:59 23:59 23:59 23:59 Intake Total 966 / 966 Output Total 300 / 300 Balance 666 / 666 Weight 91.654 kg 91.263 kg Constitutional: Present no acute distress, obese and cooperative Head: Present atraumatic and normocephalic ENT: Present normal exam Neck: Present normal inspection Respiratory: Present normal respiratory effort; Absent rhonchi, wheezes or crackles Cardiac: Present Reg Rate and Rhythm GI: Present soft, tenderness (Diffuse, worse in upper abdomen) and diminished bowel sounds; Absent distention Extremities: Present normal inspection and full ROM Skin: Present intact; Absent erythema Neuro: Present Grossly Intact, alert, awake, oriented x 3 and moves all extremities Assessment and Plan *Assessment and plan (1) SBO (small bowel obstruction): Status: Acute Category: Medical Code(s): K56.609 - Unspecified intestinal obstruction, unspecified as to partial versus complete obstruction (2) VERÓNICA (obstructive sleep apnea): Status: Acute Category: Medical Code(s): G47.33 - Obstructive sleep apnea (adult) (pediatric) (3) Obesity, Class II, BMI 35-39.9: Status: Acute Category: Medical Code(s): E66.9 - Obesity, unspecified (4) Essential hypertension: Status: Acute Category: Medical Code(s): I10 - Essential (primary) hypertension Plan Patient is a 53-year-old female who presents to the hospital due to nausea vomiting diarrhea for the past few days. According to patient she recently started using Ozempic last week and she thought her symptoms could be due to Ozempic. Patient mentions her vomiting is nonbloody, diarrhea is nonbloody. She has had persistent upper abdominal pain. Nausea overnight. Surgery assisting with care. No bowel movement or flatus since admission. Will NG being placed today. Continues to require inpatient management. Problems addres sed as follows: Nausea vomiting diarrhea Small bowel obstruction Leukocytosis likely reactive -White cell count improved this morning to 8.6. Kidney function and electrolyte remained stable with BUN 22, creatinine 0.7. Potassium 3.5 and sodium 140. Repeat CBC, CMP, magnesium ordered for the morning. -Continue maintenance IV fluids with normal saline at 100 cc an hour -Discussed case with surgery this morning, recommend NG and serial exams. Continue n.p.o. -Morphine IV 2 mg as needed every 4 hours for pain, monitor for toxicity Hypertension: Takes amlodipine at home. Holding oral medication, initiate 10 mg IV hydralazine every 8 hours as needed for systolic greater than 160. Obesity Obstructive sleep apnea -Complicates all aspects of her care. DVT prophylaxis-heparin
--- NOTE | 2023-11-30 12:54 | XR_ITS ---
FINAL REPORT CLINICAL HISTORY: verify ng tube placement COMPARISON: None FINDINGS: SINGLE VIEW ABDOMEN A single view of the abdomen was obtained. NG tube is present with the tip in the stomach antrum. There is a nonspecific bowel gas pattern. No abnormal calcifications are identified. There is postoperative change in the right abdomen. There is degenerative change of the spine. IMPRESSION: NG tube tip in the stomach antrum. Reviewed, Interpreted and Dictated by Christiano Puente III, MD Transcribed by Maribell Kraft Authenticated and [facility]
[2023-11-30] MEDS: KETOROLAC 30MG/ML VIAL 30 MG IV ×2 (15:14→21:18)
--- NOTE | 2023-11-30 15:42 | PC.NURSE ---
VS atble, NG tube at 53 cm left nare, KUB verified and tube hooked up to low wall suction. Clear liquid noted in container. Abdomen soft, nondistended, bowel sounds active. Headache reported and toradol ordered per md.
[2023-11-30 16:00] VITALS: BP 132/78; PULSE 77; RESP 20; TEMP 36.6; O2SAT 96
[2023-11-30 20:00] VITALS: BP 133/71; PULSE 74; RESP 22; TEMP 36.9; O2SAT 98
[2023-11-30] MEDS: 0.9 % SODIUM CHLORIDE 1000ML 1,000 ML 100 ML IV (21:14)
[2023-12-01] VITALS: BP 135/78; PULSE 75; RESP 20; TEMP 36.3; O2SAT 97
[2023-12-01] MEDS: MORPHINE 2MG/ML SYRINGE 2 MG IV ×5 (00:32→20:18)
[2023-12-01 04:00] VITALS: BP 145/80; PULSE 68; RESP 18; TEMP 36.3; O2SAT 98; BMI 37.5
[2023-12-01] MEDS: KETOROLAC 30MG/ML VIAL 30 MG IV ×3 (06:02→18:08)
[2023-12-01] MEDS: 0.9 % SODIUM CHLORIDE 1000ML 1,000 ML 100 ML IV (06:02)
[2023-12-01] MEDS: HEPARIN SODIUM 5,000 UNIT/ML VIAL 5000 UNIT SQ ×2 (06:02→20:17)
--- NOTE | 2023-12-01 06:07 | PC.NURSE ---
Patient has had a decent night. Has been in quite a bit of pain tonight and required pain medication quite alot, see MAR. Has been up to the bathroom multiple times to void. Patient stated that her stomach is antonio but has not had any BM. No other issues this shift
[2023-12-01 07:15] LABS: Basophils # 0.1 K/mm3 (0-0.2); Basophils % 0.8 % (0.1-2.0); Eosinophils # 0.6 K/mm3 (0.0-0.4); Eosinophils % 5.4 % (0.1-12.0); Hematocrit 42.9 % (37.0-47.0); Hemoglobin 13.4 g/dL (12.2-16.2); Lymphocytes % 19.3 % (10-50); Mean Corpuscular HGB Conc 31.2 g/dL (31.8-35.4); Mean Corpuscular Hemoglobin 31.6 pg (27.0-31.2); Mean Corpuscular Volume 101.3 fl (81-99); Mean Platelet Volume 9.6 fl (7.4-10.4); Monocytes # 0.7 K/mm3 (0.1-1.0); Monocytes % 6.8 % (1.7-9.3); Neutrophils # 7.1 K/mm3 (1.8-7.8); Neutrophils % 67.7 % (37.0-80.0); Platelet Count 312 K/mm3 (142-424); Red Blood Count 4.23 M/mm3 (4.20-5.40); Red Cell Distribution Width 13.9 % (11.5-17.5); White Blood Count 10.5 K/mm3 (4.8-10.8)
[2023-12-01 07:24] LABS: Albumin Level 3.9 g/dl (3.5-5.0); Albumin/Globulin Ratio 1.2 (1.1-1.8); Alkaline Phosphatase 100 U/L (38-126); Anion Gap 16.2 mEq/L (5-15); Bilirubin,Total 0.4 mg/dl (0.2-1.3); Blood Urea Nitrogen 17 mg/dl (7-17); Calcium 8.8 mg/dl (8.4-10.2); Carbon Dioxide 21 mmol/L (22.0-30.0); Chloride 108 mmol/L (98-107); Creatinine Clearance Estimated 136 mL/min (50-200); Estimated Glomerular Filt Rate 88 ml/min (>60); GFR (African American) 106 ML/MIN (>60); Globulin 3.2 g/dL (1.3-3.2); Potassium 3.2 mmoL/L (3.5-5.1); Sodium 142 mmol/L (136-145); Total Protein,Serum 7.1 g/dl (6.3-8.2)
[2023-12-01 07:26] LABS: Alanine Aminotransferase 66 U/L (12-78); Aspartate Amino Transferase 42 U/L (14-36)
[2023-12-01 07:36] LABS: Glucose 49 mg/dl (74-100)
--- NOTE | 2023-12-01 07:54 | FL_ITS ---
FINAL REPORT CLINICAL HISTORY: SB obstruction,...n/v x 1 week FINDINGS: Contrast was injected through the nasogastric tube into the stomach and subsequent images of the abdomen and pelvis were obtained over 3 hours. On immediate imaging, contrast is seen within the stomach. Contrast is seen to the colon by the 3-hour radiograph. There are multiple mildly distended small bowel loops seen. IMPRESSION: Findings consistent with partial small bowel obstruction. Reviewed, Interpreted and Dictated by Christiano Puente III, MD Transcribed by Maribell Kraft Authenticated and [facility]
[2023-12-01 07:59] VITALS: BP 146/81; PULSE 78; RESP 17; TEMP 37.1; O2SAT 98
--- NOTE | 2023-12-01 08:01 | P.PN_ITS ---
Subjective Narrative: Patient complains mainly of throat irritation from nasogastric tube. She has noticed some bowel rumbling . However, she has not passed any gas. She has had about 500 cc out of the nasogastric tube. Exam Data for Last 24 hours Vital signs and Labs for Last 24 Hours: Temp Pulse Resp BP Pulse Ox O2 Del Method 98.7 F 78 17 146/81 H 98 Room Air 12/01/23 07:59 12/01/23 07:59 12/01/23 07:59 12/01/23 07:59 12/01/23 07:59 12/01/23 07:59 Laboratory Results - last 24 hr 12/01/23 05:43: WBC 10.5, RBC 4.23, Hgb 13.4, Hct 42.9, MCV 101.3 H, MCH 31.6 H, MCHC 31.2 L, RDW 13.9, Plt Count 312, MPV 9.6, Neut % (Auto) 67.7, Lymph % (Auto) 19.3, [place] % (Auto) 6.8, Eos % (Auto) 5.4, Baso % (Auto) 0.8, Neut # (Auto) 7.1, Lymph # (Auto) 2.0, [place] # (Auto) 0.7, Eos # (Auto) 0.6 H, Baso # (Auto) 0.1, Sodium 142, Potassium 3.2 L, Chloride 108 H, Carbon Dioxide 21 L, Anion Gap 16.2 H, BUN 17, Creatinine 0.70, Estimated Creat Clear 136, Estimated GFR 88, Est GFR ( Amer) 106, Glucose 49 L D, Calcium 8.8, Total Bilirubin 0.4, AST 42 H D, ALT 66 D, Alkaline Phosphatase 100, Total Protein 7.1, Albumin 3.9, Globulin 3.2, Albumin/Globulin Ratio 1.2 I & O for Last 24 hours: Intake & Output 11/28/23 11/29/23 11/30/23 12/01/23 11:59 11:59 11:59 11:59 Intake Total 966 / 966 0 / 0 Output Total 300 / 300 500 / 500 Balance 666 / 666 -500 / -500 Weight 201 lb 3.2 oz 203 lb 11.2 oz *Routine Abdominal Exam Abdominal: Present soft; Absent tenderness Progress Note: A&P Assessment and plan (1) SBO (small bowel obstruction): Status: Acute Assessment and plan: Her abdomen is softer and nontender at this point. I will see if contrast small bowel evaluation can be done today. Could require operative intervention. (2) VERÓNICA (obstructive sleep apnea): Status: Acute (3) Obesity, Class II, BMI 35-39.9: Status: Acute (4) Essential hypertension: Status: Acute
[2023-12-01] MEDS: DEXTROSE 5%-LACTATED RINGERS 1,000 ML 75 ML IV ×2 (08:40→20:18)
--- NOTE | 2023-12-01 09:16 | P.PN_ITS ---
Subjective *Date: 12/01/23 *Time: 09:16 Interval history: No flatus or bowel movement overnight. NG remains in place. Vomiting this morning after receiving contrast per tube. Remains afebrile and on room air. Glucose low this morning, initiated on D5 LR. Medical Exam Vital signs and Labs for Last 24 Hours: Vital Signs Temp Pulse Resp BP Pulse Ox O2 Del Method 12/01/23 08:50 Room Air 12/01/23 08:00 Room Air 12/01/23 07:59 98.7 F 78 17 146/81 H 98 Room Air 12/01/23 06:44 Room Air 12/01/23 05:00 Room Air 12/01/23 04:00 97.4 F L 68 18 145/80 H 98 Room Air 12/01/23 02:52 Room Air 12/01/23 01:00 Room Air 12/01/23 00:00 97.3 F L 75 20 135/78 97 Room Air 11/30/23 23:00 Room Air 11/30/23 21:00 Room Air 11/30/23 20:00 98.5 F 74 22 133/71 98 Room Air 11/30/23 20:00 Room Air 11/30/23 18:35 Room Air 11/30/23 17:00 Room Air 11/30/23 16:00 97.9 F 77 20 132/78 96 Room Air 11/30/23 15:05 Room Air 11/30/23 12:40 Room Air 11/30/23 11:48 97.7 F 68 22 153/97 H 98 Room Air 11/30/23 10:50 Room Air 11/30/23 09:37 Room Air Intake and Output 11/30/23 12/01/23 12/01/23 23:59 07:59 15:59 Intake Total 0 / 966 0 / 0 0 / 0 Output Total 300 / 600 200 / 600 400 / 600 Balance -300 / 366 -200 / -600 -400 / -600 Intake: Intake, Oral Amount 0 / 0 0 / 0 0 / 0 Output: Output, Urine Amount 0 / 300 0 / 0 0 / 0 Output, Emesis Amount 400 / 400 Output, Gastric Drainage Amount 300 / 300 200 / 200 Left Nare 300 / 300 200 / 200 Other: Number of Unmeasured Voids 1 1 Weight 92.397 kg Patient Weight 12/01/23 23:59 Weight 92.397 kg Laboratory Results - last 24 hr 12/01/23 05:43: WBC 10.5, RBC 4.23, Hgb 13.4, Hct 42.9, MCV 101.3 H, MCH 31.6 H, MCHC 31.2 L, RDW 13.9, Plt Count 312, MPV 9.6, Neut % (Auto) 67.7, Lymph % (Auto) 19.3, [place] % (Auto) 6.8, Eos % (Auto) 5.4, Baso % (Auto) 0.8, Neut # (Auto) 7.1, Lymph # (Auto) 2.0, [place] # (Auto) 0.7, Eos # (Auto) 0.6 H, Baso # (Auto) 0.1, Sodium 142, Potassium 3.2 L, Chloride 108 H, Carbon Dioxide 21 L, Anion Gap 16.2 H, BUN 17, Creatinine 0.70, Estimated Creat Clear 136, Estimated GFR 88, Est GFR ( Amer) 106, Glucose 49 L D, Calcium 8.8, Total Bilirubin 0.4, AST 42 H D, ALT 66 D, Alkaline Phosphatase 100, Total Protein 7.1, Albumin 3.9, Globulin 3.2, Albumin/Globulin Ratio 1.2 I & O for Labs for Last 24 Hours: Intake & Output 11/28/23 11/29/23 11/30/23 12/01/23 23:59 23:59 23:59 23:59 Intake Total 966 / 966 0 / 0 Output Total 600 / 600 600 / 600 Balance 366 / 366 -600 / -600 Weight 91.654 kg 91.263 kg 92.397 kg Constitutional: Present no acute distress, obese and cooperative Head: Present atraumatic and normocephalic ENT: Present normal exam Comment:: NG in left nare Neck: Present normal inspection Respiratory: Present normal respiratory effort; Absent rhonchi, wheezes or crackles Cardiac: Present Reg Rate and Rhythm GI: Present soft, tenderness (Diffuse, worse in upper abdomen) and diminished bowel sounds; Absent distention Extremities: Present normal inspection and full ROM Skin: Present intact; Absent erythema Neuro: Present Grossly Intact, alert, awake, oriented x 3 and moves all extremities Assessment and Plan *Assessment and plan (1) SBO (small bowel obstruction): Status: Acute Category: Medical Code(s): K56.609 - Unspecified intestinal obstruction, unspecified as to partial versus complete obstruction (2) VERÓNICA (obstructive sleep apnea): Status: Acute Category: Medical Code(s): G47.33 - Obstructive sleep apnea (adult) (pediatric) (3) Obesity, Class II, BMI 35-39.9: Status: Acute Category: Medical Code(s): E66.9 - Obesity, unspecified (4) Essential hypertension: Status: Acute Category: Medical Code(s): I10 - Essential (primary) hypertension Plan Patient is a 53-year-old female who presents to the hospital due to nausea vomiting diarrhea for the past few days. According to patient she recently started using Ozempic last week and she thought her symptoms could be due to Ozempic. Patient mentions her vomiting is nonbloody, diarrhea is nonbloody. She has had persistent upper abdominal pain. Nausea overnight. Surgery assisting with care. No bowel movement or flatus since admission. NG in place. Emesis after administering contrast. Continues to require inpatient management. Problems addressed as follows: Nausea vomiting diarrhea Small bowel obstruction Leukocytosis likely reactive Hypoglycemia -White cell count within normal range this morning at 10.5. Kidney function normal with BUN 17, creatinine 0.7. Potassium low at 3.2. Glucose low at 49. Initiated on D5 LR. Will repeat labs this afternoon with BMP. Repeat CBC, CMP, magnesium ordered for the morning. -D5 LR at 75 cc an hour -Discussed case with surgery this morning, will administer contrast via NG and do a small bowel follow-through. Serial images pending. Continue NPO. Patient has history of abdominal surgery with mesh in place, concern for adhesion or ot her form of obstruction. Further management pending imaging results. -Morphine IV 2 mg as needed every 4 hours for pain, monitor for toxicity Hypertension: Takes amlodipine at home. Holding oral medication, initiate 10 mg IV hydralazine every 8 hours as needed for systolic greater than 160. Obesity Obstructive sleep apnea -Complicates all aspects of her care. DVT prophylaxis-heparin
[2023-12-01] MEDS: ONDANSETRON 4MG/2ML VIAL 4 MG IV (09:19)
[2023-12-01 10:38] LABS: POC Glucose,Bedside 68 (70-110)
[2023-12-01] MEDS: DIATRIZOATE MEGLUMINE(GASTROGRAFIN) 66%-10% 120ML 480 ML PO (10:58)
--- NOTE | 2023-12-01 11:20 | XR_ITS ---
FINAL REPORT CLINICAL HISTORY: BOWEL OBSTRUCTION FINDINGS: A PA view of the chest was obtained. The mediastinum is unremarkable. The lungs are clear. There is no free air beneath the diaphragm. There are multiple air-filled bowel loops in a nonspecific pattern. No abnormal calcification is identified. NG tube is in the stomach. There are postoperative changes in the right upper quadrant and pelvis. IMPRESSION: Nonspecific bowel gas pattern. Reviewed, Interpreted and Dictated by Christiano Puente III, MD Transcribed by Aliza Glover Authenticated and [facility]
[2023-12-01 12:02] VITALS: BMI 37.4
--- NOTE | 2023-12-01 15:08 | PC.NURSE ---
Aox 4, up with assistance times one, emesis times one today and zofran given, L nare NG TUBE TO LWS AT 53, pain meds given twice today, small bowel follow through done, low fsbg this am of 49 and D5 LR started at 75 ml/hr.
[2023-12-01 15:49] VITALS: BP 137/75; PULSE 60; RESP 18; TEMP 36.9; O2SAT 98
--- NOTE | 2023-12-01 19:03 | PC.NURSE ---
Family refusing labs at this time. Dr Hamilton notified.
[2023-12-01 20:00] VITALS: BP 166/90; PULSE 63; RESP 16; TEMP 36.6; O2SAT 98
[2023-12-01 20:33] LABS: POC Glucose,Bedside 69 (70-110)
[2023-12-02] MEDS: KETOROLAC 30MG/ML VIAL 30 MG IV ×3 (02:17→23:50)
[2023-12-02 03:56] VITALS: BP 150/71; PULSE 70; RESP 16; TEMP 36.6; O2SAT 98; BMI 37.5
[2023-12-02] MEDS: HEPARIN SODIUM 5,000 UNIT/ML VIAL 5000 UNIT SQ ×2 (04:31→21:20)
--- NOTE | 2023-12-02 04:56 | PC.NURSE ---
Patient has had a li. complained of pain once, but has not complained since and has slept ever since. Did get a shower and has been NPO since midnight. No other issues. Patient is 1:1 with staff
--- NOTE | 2023-12-02 05:05 | PC.NURSE ---
Patient has had a good shift. Has slept most of it. Patient remains with an NG at 53. Patient did state she had a BM on dayshift yesterday. Patient abd is soft and hyperactive bowel sound noted. Patient only pain is in her throat. No nausea this shift.
--- NOTE | 2023-12-02 06:00 | XR_ITS ---
PROCEDURE INFORMATION: Exam: XR Complete Acute Abdomen Series Including Chest Exam date and time: 12/02/2023 5:59 AM Age: 53 years old Clinical indication: Other: Bowel obstruction TECHNIQUE: Imaging protocol: Radiologic exam. Complete acute abdomen series, including 2 or more views of the abdomen and a single view chest. COMPARISON: CR XR ACUTE ABDOMEN SERIES 12/01/2023 8:40 AM FINDINGS: Tubes, catheters and devices: Enteric tube traverses midline catheter tip is subdiaphragmatic over the T12 vertebral body, side port at the level of the gastroesophageal junction. Lungs: Normal. No consolidation. Pleural spaces: Normal. No pleural effusions. No pneumothorax. Heart/Mediastinum: Normal. No cardiomegaly. Gastrointestinal tract: Enteric contrast is appreciated at the level of the rectum. Paucity of small bowel gas. Intraperitoneal space: Metallic clips appreciated along the pelvis. Organs: Status post cholecystectomy. Bones/joints: Mild diffuse degenerative changes of the visualized osseous structures. Soft tissues: Normal. IMPRESSION: 1. Enteric tube with side port at the level of the gastroesophageal junction, recommend advancement. 2. Bowel contrast is appreciated at the level of the rectum. 3. Nonobstructive nonspecific bowel pattern. 4. Remainder of the exam as above.
--- NOTE | 2023-12-02 06:23 | P.PN_ITS ---
Subjective Patient reports: feels better and bowel movement Narrative: She does not complain of abdominal pain. She states that she feels much better . She has had multiple loose bowel movements. She does complain of sore throat secondary to nasogastric tube. Exam Data for Last 24 hours Vital signs and Labs for Last 24 Hours: Temp Pulse Resp BP Pulse Ox O2 Del Method 98 F 70 16 150/71 H 98 Room Air 12/02/23 03:56 12/02/23 03:56 12/02/23 03:56 12/02/23 03:56 12/02/23 03:56 12/02/23 04:54 Laboratory Results - last 24 hr 12/01/23 05:43: WBC 10.5, RBC 4.23, Hgb 13.4, Hct 42.9, MCV 101.3 H, MCH 31.6 H, MCHC 31.2 L, RDW 13.9, Plt Count 312, MPV 9.6, Neut % (Auto) 67.7, Lymph % (Auto) 19.3, [place] % (Auto) 6.8, Eos % (Auto) 5.4, Baso % (Auto) 0.8, Neut # (Auto) 7.1, Lymph # (Auto) 2.0, [place] # (Auto) 0.7, Eos # (Auto) 0.6 H, Baso # (Auto) 0.1, Sodium 142, Potassium 3.2 L, Chloride 108 H, Carbon Dioxide 21 L, Anion Gap 16.2 H, BUN 17, Creatinine 0.70, Estimated Creat Clear 136, Estimated GFR 88, Est GFR ( Amer) 106, Glucose 49 L D, Calcium 8.8, Total Bilirubin 0.4, AST 42 H D, ALT 66 D, Alkaline Phosphatase 100, Total Protein 7.1, Albumin 3.9, Globulin 3.2, Albumin/Globulin Ratio 1.2 12/01/23 10:17: POC Glucose 68 L 12/01/23 20:22: POC Glucose 69 L I & O for Last 24 hours: Intake & Output 11/29/23 11/30/23 12/01/23 12/02/23 11:59 11:59 11:59 11:59 Intake Total 966 / 966 0 / 0 600 / 600 Output Total 300 / 300 900 / 900 450 / 450 Balance 666 / 666 -900 / -900 150 / 150 Weight 201 lb 3.2 oz 203 lb 11.2 oz 204 lb 1.6 oz Constitutional Constitutional: no acute distress *Routine Respiratory Exam Respiratory: Absent respiratory distress *Routine Cardiovascular Exam Cardiovascular: Absent tachycardia *Routine Abdominal Exam Abdominal: Present soft Progress Note: A&P Assessment and plan (1) SBO (small bowel obstruction): Status: Acute Assessment and plan: Large volume of contrast within colon on a.m. films. Multiple bowel movements noted. Nasogastric tube to drain bag (possible removal later today) Chloraseptic
[2023-12-02] MEDS: MORPHINE 2MG/ML SYRINGE 2 MG IV ×3 (06:42→20:21)
[2023-12-02] MEDS: PHENOL THROAT SPRAY 177 ML BOTTLE MM (06:47)
--- NOTE | 2023-12-02 07:00 | PC.NURSE ---
Attempted to put patient to drainage bag, patient instantly complained of sharp stomach pain and nausea. Patient hooked back up to suction and patient was relieved of both pain and nausea.
[2023-12-02 07:18] LABS: Basophils # 0.1 K/mm3 (0-0.2); Basophils % 0.8 % (0.1-2.0); Eosinophils # 0.5 K/mm3 (0.0-0.4); Eosinophils % 5.6 % (0.1-12.0); Hematocrit 43.8 % (37.0-47.0); Hemoglobin 13.8 g/dL (12.2-16.2); Lymphocytes # 1.4 K/mm3 (0.7-4.5); Lymphocytes % 16.7 % (10-50); Mean Corpuscular HGB Conc 31.6 g/dL (31.8-35.4); Mean Corpuscular Hemoglobin 31.7 pg (27.0-31.2); Mean Corpuscular Volume 100.4 fl (81-99); Mean Platelet Volume 9.1 fl (7.4-10.4); Monocytes # 0.5 K/mm3 (0.1-1.0); Neutrophils # 6.1 K/mm3 (1.8-7.8); Neutrophils % 70.9 % (37.0-80.0); Platelet Count 264 K/mm3 (142-424); Red Blood Count 4.36 M/mm3 (4.20-5.40); White Blood Count 8.6 K/mm3 (4.8-10.8)
[2023-12-02 08:00] VITALS: BP 136/71; PULSE 59; RESP 20; TEMP 36.6; O2SAT 98
[2023-12-02 08:19] LABS: Chloride 106 mmol/L (98-107); Potassium 3.2 mmoL/L (3.5-5.1); Sodium 141 mmol/L (136-145)
[2023-12-02] MEDS: DEXTROSE 5%-LACTATED RINGERS 1,000 ML 75 ML IV ×2 (08:30→23:50)
--- NOTE | 2023-12-02 08:48 | DIET.NUTRFU ---
NPO since admit on 11/28 secondary to GI distress upon admit. Possible SBO, NG tube in place with drainage today possible removal. Multiple BM noted 11/30. Upgrade diet when feasible per sx. Anticipate diet upgrade today or tomorrow
[2023-12-02 09:00] LABS: Alanine Aminotransferase 52 U/L (12-78); Albumin Level 3.8 g/dl (3.5-5.0); Albumin/Globulin Ratio 1.2 (1.1-1.8); Alkaline Phosphatase 86 U/L (38-126); Anion Gap 11.2 mEq/L (5-15); Aspartate Amino Transferase 36 U/L (14-36); Bilirubin,Total 0.3 mg/dl (0.2-1.3); Blood Urea Nitrogen 14 mg/dl (7-17); Calcium 8.9 mg/dl (8.4-10.2); Carbon Dioxide 27 mmol/L (22.0-30.0); Creatinine Clearance Estimated 136 mL/min (50-200); Estimated Glomerular Filt Rate 88 ml/min (>60); GFR (African American) 106 ML/MIN (>60); Globulin 3.2 g/dL (1.3-3.2); Glucose 103 mg/dl (74-100)
[2023-12-02] MEDS: KCl 10mEq/100ml 100 ML 100 MEQ IV ×2 (10:41→12:26)
--- NOTE | 2023-12-02 12:09 | P.PN_ITS ---
Subjective *Date: 12/03/23 *Time: 07:17 Interval history: Imaging contrast infusion yesterday shows contrast in her colon. Has had 2 bowel movements overnight. Continues to have some intermittent nausea but no roge emesis. Afebrile, on room air. Abdominal pain improving. Medical Exam Vital signs and Labs for Last 24 Hours: Vital Signs Temp Pulse Resp BP Pulse Ox O2 Del Method 12/02/23 08:00 97.9 F 59 L 20 136/71 98 Room Air 12/02/23 07:00 Room Air 12/02/23 04:54 Room Air 12/02/23 03:56 98 F 70 16 150/71 H 98 12/02/23 03:00 Room Air 12/02/23 01:00 Room Air 12/01/23 23:00 Room Air 12/01/23 21:00 Room Air 12/01/23 20:00 Room Air 12/01/23 20:00 98 F 63 16 166/90 H 98 12/01/23 17:36 Room Air 12/01/23 16:19 Room Air 12/01/23 15:49 98.5 F 60 18 137/75 98 Room Air 12/01/23 14:03 Room Air 12/01/23 13:00 Room Air Intake and Output 12/01/23 12/02/23 12/02/23 23:59 07:59 15:59 Intake Total 0 / 600 Output Total 300 / 900 150 / 150 Balance -300 / -300 -150 / -150 Intake: Intake, Oral Amount 0 / 0 Output: Output, Urine Amount 0 / 0 0 / 0 Output, Gastric Drainage Amount 300 / 500 150 / 150 Left Nare 300 / 500 150 / 150 Other: Number of Unmeasured Voids 1 1 Number of Bowel Movements 1 Weight 92.578 kg Patient Weight 12/02/23 23:59 Weight 92.578 kg Laboratory Results - last 24 hr 12/01/23 20:22: POC Glucose 69 L 12/02/23 06:57: WBC 8.6, RBC 4.36, Hgb 13.8, Hct 43.8, MCV 100.4 H, MCH 31.7 H, MCHC 31.6 L, RDW 14.0, Plt Count 264, MPV 9.1, Neut % (Auto) 70.9, Lymph % (Auto) 16.7, [place] % (Auto) 6.0, Eos % (Auto) 5.6, Baso % (Auto) 0.8, Neut # (Auto) 6.1, Lymph # (Auto) 1.4, [place] # (Auto) 0.5, Eos # (Auto) 0.5 H, Baso # (Auto) 0.1, Sodium 141, Potassium 3.2 L, Chloride 106, Carbon Dioxide 27, Anion Gap 11.2, BUN 14, Creatinine 0.70, Estimated Creat Clear 136, Estimated GFR 88, Est GFR ( Amer) 106, Glucose 103 H, Calcium 8.9, Total Bilirubin 0.3, AST 36, ALT 52, Alkaline Phosphatase 86, Total Protein 7.0, Albumin 3.8, Globulin 3.2, Albumin/Globulin Ratio 1.2 I & O for Labs for Last 24 Hours: Intake & Output 11/29/23 11/30/23 12/01/23 12/02/23 23:59 23:59 23:59 23:59 Intake Total 966 / 966 600 / 600 Output Total 600 / 600 900 / 900 150 / 150 Balance 366 / 366 -300 / -300 -150 / -150 Weight 91.654 kg 91.263 kg 92.3 kg 92.578 kg Constitutional: Present no acute distress, obese and cooperative Head: Present atraumatic and normocephalic ENT: Present normal exam Comment:: NG in left nare Neck: Present normal inspection Respiratory: Present normal respiratory effort; Absent rhonchi, wheezes or crackles Cardiac: Present Reg Rate and Rhythm GI: Present soft, tenderness (Interval improvement) and normal bowel sounds; Absent distention Extremities: Present normal inspection and full ROM Skin: Present intact; Absent erythema Neuro: Present Grossly Intact, alert, awake, oriented x 3 and moves all extremities Assessment and Plan *Assessment and plan (1) SBO (small bowel obstruction): Status: Acute Category: Medical Code(s): K56.609 - Unspecified intestinal obstruction, unspecified as to partial versus complete obstruction (2) VERÓNICA (obstructive sleep apnea): Status: Acute Category: Medical Code(s): G47.33 - Obstructive sleep apnea (adult) (pediatric) (3) Obesity, Class II, BMI 35-39.9: Status: Acute Category: Medical Code(s): E66.9 - Obesity, unspecified (4) Essential hypertension: Status: Acute Category: Medical Code(s): I10 - Essential (primary) hypertension Plan Patient is a 53-year-old female who presents to the hospital due to nausea vomiting diarrhea for the past few days. According to patient she recently started using Ozempic last week and she thought her symptoms could be due to Ozempic. Patient mentions her vomiting is nonbloody, diarrhea is nonbloody. Pain doing better. No further nausea or vomiting. Imaging shows on personal review that contrast is gotten to the colon. NG to bag today. Surgery assisting with care. Continues to require inpatient management. Anticipate advancement of diet in the next 24 hours. Problems addressed as follows: Nausea vomiting diarrhea Small bowel obstruction Leukocytosis likely reactive Hypoglycemia -White cell count within normal range this morning at 8.6. Kidney function normal with BUN of 14 and creatinine of 0.7. Potassium low at 3.2, will replace IV with 20 mEq. Repeat CBC, CMP, magnesium ordered for the morning. Continuing D5 LR for hypoglycemia, glucose 103 this morning. Fingersticks ACHS. -Discussed case with surgery this morning, patient is had 2 bowel movements, tube to drain bag today. If does well over the next 12 to 24 hours, anticipate advancement of diet. Continue n.p.o. patient has history of abdominal surgery with mesh in place, concern for adhesion or other form of obstruction. Imaging results did not show roge obstruction -Morphine IV 2 mg as needed every 4 hours for pain, monitor for toxicity Hypertension: Takes amlodipine at home. Holding oral medication, 10 mg IV hydralazine every 8 hours as needed for systolic greater than 160. Obesity Obstructive sleep apnea -Complicates all aspects of her care. DVT prophylaxis-heparin
[2023-12-02] MEDS: ONDANSETRON 4MG/2ML VIAL 4 MG IV ×2 (12:32→20:21)
[2023-12-02 16:00] VITALS: BP 150/87; PULSE 58; RESP 18; TEMP 36.7; O2SAT 99
--- NOTE | 2023-12-02 16:22 | PC.NURSE ---
Patient's NG tube put to d rain bag at 0930. Patient has had some nausea and pain. But patient states it is no where near the pain level she experience when the previous nurse tried to hook patient to drain bag around 0650 per previous RN.
[2023-12-02 19:53] VITALS: BP 155/90; PULSE 66; RESP 18; TEMP 36.3; O2SAT 99
[2023-12-03] MEDS: MORPHINE 2MG/ML SYRINGE 2 MG IV ×2 (01:10→05:11)
[2023-12-03 01:19] LABS: POC Glucose,Bedside 98 (70-110)
[2023-12-03 04:00] VITALS: BP 136/68; PULSE 61; RESP 16; TEMP 37; O2SAT 96; BMI 37.6
[2023-12-03] MEDS: HEPARIN SODIUM 5,000 UNIT/ML VIAL 5000 UNIT SQ ×3 (05:11→21:07)
[2023-12-03] MEDS: ONDANSETRON 4MG/2ML VIAL 4 MG IV ×2 (05:11→22:44)
[2023-12-03 06:28] LABS: Basophils # 0.1 K/mm3 (0-0.2); Eosinophils # 0.4 K/mm3 (0.0-0.4); Red Cell Distribution Width 14.1 % (11.5-17.5)
[2023-12-03 06:36] LABS: Alanine Aminotransferase 42 U/L (12-78); Albumin Level 3.3 g/dl (3.5-5.0); Albumin/Globulin Ratio 1.2 (1.1-1.8); Alkaline Phosphatase 72 U/L (38-126); Anion Gap 8.1 mEq/L (5-15); Aspartate Amino Transferase 34 U/L (14-36); Bilirubin,Total 0.2 mg/dl (0.2-1.3); Blood Urea Nitrogen 8 mg/dl (7-17); Calcium 8.5 mg/dl (8.4-10.2); Carbon Dioxide 32 mmol/L (22.0-30.0); Chloride 102 mmol/L (98-107); Creatinine Clearance Estimated 136 mL/min (50-200); Estimated Glomerular Filt Rate 88 ml/min (>60); GFR (African American) 106 ML/MIN (>60); Globulin 2.8 g/dL (1.3-3.2); Glucose 108 mg/dl (74-100); Potassium 3.1 mmoL/L (3.5-5.1); Sodium 139 mmol/L (136-145); Total Protein,Serum 6.1 g/dl (6.3-8.2)
[2023-12-03 06:39] LABS: Basophils % 0.6 % (0.1-2.0); Eosinophils % 3.6 % (0.1-12.0); Hematocrit 39.3 % (37.0-47.0); Lymphocytes # 1.8 K/mm3 (0.7-4.5); Lymphocytes % 15.8 % (10-50); Mean Corpuscular HGB Conc 31.8 g/dL (31.8-35.4); Mean Corpuscular Hemoglobin 31.7 pg (27.0-31.2); Mean Corpuscular Volume 99.8 fl (81-99); Mean Platelet Volume 9.9 fl (7.4-10.4); Monocytes # 0.9 K/mm3 (0.1-1.0); Monocytes % 7.7 % (1.7-9.3); Neutrophils # 8.2 K/mm3 (1.8-7.8); Neutrophils % 72.4 % (37.0-80.0); Platelet Count 242 K/mm3 (142-424); Red Blood Count 3.94 M/mm3 (4.20-5.40); White Blood Count 11.4 K/mm3 (4.8-10.8)
[2023-12-03 06:43] LABS: Hemoglobin 12.5 g/dL (12.2-16.2)
--- NOTE | 2023-12-03 07:45 | EXP.SURG.PN ---
Subjective Narrative: Patient has had her NG tube to gravity drain over 24 hours. No output. Moving bowels. Exam Data for Last 24 hours Vital signs and Labs for Last 24 Hours: Temp Pulse Resp BP Pulse Ox O2 Del Method 98.6 F 61 16 136/68 96 Room Air 12/03/23 04:00 12/03/23 04:00 12/03/23 04:00 12/03/23 04:00 12/03/23 04:00 12/03/23 05:00 Laboratory Results - last 24 hr 12/02/23 06:57: Sodium 141, Potassium 3.2 L, Chloride 106, Carbon Dioxide 27, Anion Gap 11.2, BUN 14, Creatinine 0.70, Estimated Creat Clear 136, Estimated GFR 88, Est GFR ( Amer) 106, Glucose 103 H, Calcium 8.9, Total Bilirubin 0.3, AST 36, ALT 52, Alkaline Phosphatase 86, Total Protein 7.0, Albumin 3.8, Globulin 3.2, Albumin/Globulin Ratio 1.2 12/03/23 01:12: POC Glucose 98 12/03/23 05:18: WBC 11.4 H D, RBC 3.94 L, Hgb 12.5, Hct 39.3, MCV 99.8 H, MCH 31.7 H, MCHC 31.8, RDW 14.1, Plt Count 242, MPV 9.9, Neut % (Auto) 72.4, Lymph % (Auto) 15.8, [place] % (Auto) 7.7, Eos % (Auto) 3.6, Baso % (Auto) 0.6, Neut # (Auto) 8.2 H, Lymph # (Auto) 1.8, [place] # (Auto) 0.9, Eos # (Auto) 0.4, Baso # (Auto) 0.1, Sodium 139, Potassium 3.1 L, Chloride 102, Carbon Dioxide 32 H, Anion Gap 8.1, BUN 8 D, Creatinine 0.70, Estimated Creat Clear 136, Estimated GFR 88, Est GFR ( Amer) 106, Glucose 108 H, Calcium 8.5, Total Bilirubin 0.2, AST 34, ALT 42, Alkaline Phosphatase 72, Total Protein 6.1 L, Albumin 3.3 L D, Globulin 2.8, Albumin/Globulin Ratio 1.2 I & O for Last 24 hours: Intake & Output 11/30/23 12/01/23 12/02/23 12/03/23 11:59 11:59 11:59 11:59 Intake Total 966 / 966 0 / 0 600 / 600 450 / 450 Output Total 300 / 300 900 / 900 450 / 450 0 / 0 Balance 666 / 666 -900 / -900 150 / 150 450 / 450 Weight 201 lb 3.2 oz 203 lb 11.2 oz 204 lb 1.6 oz 204 lb 6.4 oz *Routine Abdominal Exam Abdominal: Present soft Progress Note: A&P Assessment and plan (1) SBO (small bowel obstruction): Status: Acute Assessment and plan: DC NG tube. Clear liquids. (2) VERÓNICA (obstructive sleep apnea): Status: Acute (3) Obesity, Class II, BMI 35-39.9: Status: Acute (4) Essential hypertension: Status: Acute
[2023-12-03 08:00] VITALS: BP 148/78; PULSE 67; RESP 21; TEMP 36.7; O2SAT 99
[2023-12-03 08:40] LABS: Magnesium 1.9 mg/dl (1.6-2.3)
[2023-12-03] MEDS: KCl 10mEq/100ml 100 ML 100 MEQ IV ×3 (10:13→12:59)
--- NOTE | 2023-12-03 13:43 | EXP.ACUTE.PN ---
Subjective *Date: 12/03/23 *Time: 21:02 Interval history: Patient feeling somewhat better today. NG taken out before rounds. No nausea or vomiting for over 24 hours. Afebrile. On room air. Medical Exam Vital signs and Labs for Last 24 Hours: Vital Signs Temp Pulse Resp BP Pulse Ox O2 Del Method 12/03/23 08:00 98.0 F 67 21 148/78 H 99 Room Air 12/03/23 05:00 Room Air 12/03/23 04:00 98.6 F 61 16 136/68 96 12/03/23 02:56 Room Air 12/03/23 01:00 Room Air 12/02/23 23:00 Room Air 12/02/23 21:00 Room Air 12/02/23 20:00 Room Air 12/02/23 19:53 97.4 F L 66 18 155/90 H 99 12/02/23 16:00 98.0 F 58 L 18 150/87 H 99 Room Air Intake and Output 12/02/23 12/03/23 12/03/23 23:59 07:59 15:59 Intake Total 0 / 450 450 / 450 0 / 450 Output Total 0 / 150 0 / 0 0 / 0 Balance 0 / 300 450 / 450 0 / 450 Intake: Intake, Oral Amount 0 / 0 0 / 0 0 / 0 Intake, Total IV Amount 450 / 450 Dextrose 5%-Lactated Ringers 1, 450 / 450 000 ml @ 75 mls/hr IV .[id number] [facility] Rx#:[id number] Output: Output, Urine Amount 0 / 0 0 / 0 0 / 0 Output, Gastric Drainage Amount 0 / 0 Left Nare 0 / 0 Other: Number of Voids 2 Number of Unmeasured Voids 1 1 1 Number of Bowel Movements 1 Weight 92.714 kg Patient Weight 12/03/23 23:59 Weight 92.714 kg Laboratory Results - last 24 hr 12/03/23 01:12: POC Glucose 98 12/03/23 05:18: WBC 11.4 H D, RBC 3.94 L, Hgb 12.5, Hct 39.3, MCV 99.8 H, MCH 31.7 H, MCHC 31.8, RDW 14.1, Plt Count 242, MPV 9.9, Neut % (Auto) 72.4, Lymph % (Auto) 15.8, [place] % (Auto) 7.7, Eos % (Auto) 3.6, Baso % (Auto) 0.6, Neut # (Auto) 8.2 H, Lymph # (Auto) 1.8, [place] # (Auto) 0.9, Eos # (Auto) 0.4, Baso # (Auto) 0.1, Sodium 139, Potassium 3.1 L, Chloride 102, Carbon Dioxide 32 H, Anion Gap 8.1, BUN 8 D, Creatinine 0.70, Estimated Creat Clear 136, Estimated GFR 88, Est GFR ( Amer) 106, Glucose 108 H, Calcium 8.5, Magnesium 1.9, Total Bilirubin 0.2, AST 34, ALT 42, Alkaline Phosphatase 72, Total Protein 6.1 L, Albumin 3.3 L D, Globulin 2.8, Albumin/Globulin Ratio 1.2 Vital Signs Temp Pulse Resp BP Pulse Ox O2 Del Method 12/02/23 08:00 97.9 F 59 L 20 136/71 98 Room Air 12/02/23 07:00 Room Air 12/02/23 04:54 Room Air 12/02/23 03:56 98 F 70 16 150/71 H 98 12/02/23 03:00 Room Air 12/02/23 01:00 Room Air 12/01/23 23:00 Room Air 12/01/23 21:00 Room Air 12/01/23 20:00 Room Air 12/01/23 20:00 98 F 63 16 166/90 H 98 12/01/23 17:36 Room Air 12/01/23 16:19 Room Air 12/01/23 15:49 98.5 F 60 18 137/75 98 Room Air 12/01/23 14:03 Room Air 12/01/23 13:00 Room Air Intake and Output 12/01/23 12/02/23 12/02/23 23:59 07:59 15:59 Intake Total 0 / 600 Output Total 300 / 900 150 / 150 Balance -300 / -300 -150 / -150 Intake: Intake, Oral Amount 0 / 0 Output: Output, Urine Amount 0 / 0 0 / 0 Output, Gastric Drainage Amount 300 / 500 150 / 150 Left Nare 300 / 500 150 / 150 Other: Number of Unmeasured Voids 1 1 Number of Bowel Movements 1 Weight 92.578 kg Patient Weight 12/02/23 23:59 Weight 92.578 kg Laboratory Results - last 24 hr 12/01/23 20:22: POC Glucose 69 L 12/02/23 06:57: WBC 8.6, RBC 4.36, Hgb 13.8, Hct 43.8, MCV 100.4 H, MCH 31.7 H, MCHC 31.6 L, RDW 14.0, Plt Count 264, MPV 9.1, Neut % (Auto) 70.9, Lymph % (Auto) 16.7, [place] % (Auto) 6.0, Eos % (Auto) 5.6, Baso % (Auto) 0.8, Neut # (Auto) 6.1, Lymph # (Auto) 1.4, [place] # (Auto) 0.5, Eos # (Auto) 0.5 H, Baso # (Auto) 0.1, Sodium 141, Potassium 3.2 L, Chloride 106, Carbon Dioxide 27, Anion Gap 11.2, BUN 14, Creatinine 0.70, Estimated Creat Clear 136, Estimated GFR 88, Est GFR ( Amer) 106, Glucose 103 H, Calcium 8.9, Total Bilirubin 0.3, AST 36, ALT 52, Alkaline Phosphatase 86, Total Protein 7.0, Albumin 3.8, Globulin 3.2, Albumin/Globulin Ratio 1.2 I & O for Labs for Last 24 Hours: Intake & Output 11/30/23 12/01/23 12/02/23 12/03/23 23:59 23:59 23:59 23:59 Intake Total 966 / 966 600 / 600 0 / 450 450 / 450 Output Total 600 / 600 900 / 900 150 / 150 0 / 0 Balance 366 / 366 -300 / -300 -150 / 300 450 / 450 Weight 91.263 kg 92.3 kg 92.578 kg 92.714 kg Intake & Output 11/29/23 11/30/23 12/01/23 12/02/23 23:59 23:59 23:59 23:59 Intake Total 966 / 966 600 / 600 Output Total 600 / 600 900 / 900 150 / 150 Balance 366 / 366 -300 / -300 -150 / -150 Weight 91.654 kg 91.263 kg 92.3 kg 92.578 kg Constitutional: Present no acute distress Head: Present atraumatic and normocephalic ENT: Present normal exam Neck: Present normal inspection Respiratory: Present normal respiratory effort Cardiac: Present Reg Rate and Rhythm GI: Present normal bowel sounds; Absent tenderness Extremities: Present normal inspection and full ROM Skin: Present intact; Absent erythema Neuro: Present Grossly Intact and moves all extremities Assessment and Plan *Assessment and plan (1) SBO (small bowel obstruction): Status: Acute Category: Medical Code(s): K56.609 - Unspecified intestinal obstruction, unspecified as to partial versus complete obstruction (2) VERÓNICA (obstructive sleep apnea): Status: Acute Category: Medical Code(s): G47.33 - Obstructive sleep apnea (adult) (pediatric) (3) Obesity, Class II, BMI 35-39.9: Status: Acute Category: Medical Code(s): E66.9 - Obesity, unspecified (4) Essential hypertension: Status: Acute Category: Medical Code(s): I10 - Essential (primary) hypertension Plan Patient is a 53-year-old female who presents to the hospital due to nausea vomiting diarrhea for the past few days. According to patient she recently started using Ozempic last week and she thought her symptoms could be due to Ozempic. Patient mentions her vomiting is nonbloody, diarrhea is nonbloody. Pain doing better. No further nausea or vomiting. NG out this morning. Discussed case with surgery, will advance diet to clears. Monitor for improvement. Anticipate discharge in the coming days. Problems addressed as follows: Nausea vomiting diarrhea Small bowel obstruction Leukocytosis likely reactive Hypoglycemia -White cell count normal at 11.4. Has had at least 1 bowel movement in the past 24 hours. Kidney function normal with BUN of 8, creatinine 0.7. Potassium low again at 3.1, will replace with 30 mEq IV -Discontinue IV fluids -Continue fingersticks ACHS given hypoglycemia -Discontinue pain medication - Repeat CBC, CMP, magnesium ordered for the morning. Hypertension: Resume home amlodipine 5 mg daily. Obesity Obstructive sleep apnea -Complicates all aspects of her care. DVT prophylaxis-heparin
[2023-12-03 16:00] VITALS: BP 134/84; PULSE 61; RESP 21; TEMP 36.8; O2SAT 100
--- NOTE | 2023-12-03 18:59 | PC.NURSE ---
Patient's NG tube removed this AM. Patient has tolerated NG tube being removed and has tolerated advancing diet. No c/o pain or nausea this shift.
[2023-12-03 20:00] VITALS: BP 142/79; PULSE 64; RESP 16; TEMP 36.7; O2SAT 99
[2023-12-03] MEDS: KETOROLAC 30MG/ML VIAL 30 MG IV (21:06)
[2023-12-04 04:00] VITALS: BP 142/78; PULSE 69; RESP 16; TEMP 36.8; O2SAT 98; BMI 37.1
[2023-12-04] MEDS: HEPARIN SODIUM 5,000 UNIT/ML VIAL 5000 UNIT SQ ×3 (04:45→20:32)
[2023-12-04] MEDS: ONDANSETRON 4MG/2ML VIAL 4 MG IV (06:00)
[2023-12-04] MEDS: KETOROLAC 30MG/ML VIAL 30 MG IV ×2 (06:00→22:28)
[2023-12-04 06:13] LABS: Basophils # 0.1 K/mm3 (0-0.2); Basophils % 0.7 % (0.1-2.0); Eosinophils # 0.4 K/mm3 (0.0-0.4); Eosinophils % 3.8 % (0.1-12.0); Hemoglobin 13.6 g/dL (12.2-16.2); Lymphocytes % 17.9 % (10-50); Mean Corpuscular HGB Conc 31.7 g/dL (31.8-35.4); Mean Corpuscular Hemoglobin 31.5 pg (27.0-31.2); Mean Corpuscular Volume 99.2 fl (81-99); Mean Platelet Volume 9.7 fl (7.4-10.4); Monocytes # 0.7 K/mm3 (0.1-1.0); Monocytes % 6.4 % (1.7-9.3); Neutrophils # 7.9 K/mm3 (1.8-7.8); Neutrophils % 71.2 % (37.0-80.0); Platelet Count 288 K/mm3 (142-424); Red Blood Count 4.33 M/mm3 (4.20-5.40); Red Cell Distribution Width 14.1 % (11.5-17.5); White Blood Count 11.2 K/mm3 (4.8-10.8)
[2023-12-04 06:16] LABS: Alanine Aminotransferase 51 U/L (12-78); Albumin Level 3.5 g/dl (3.5-5.0); Albumin/Globulin Ratio 1.2 (1.1-1.8); Alkaline Phosphatase 74 U/L (38-126); Anion Gap 9.6 mEq/L (5-15); Aspartate Amino Transferase 49 U/L (14-36); Bilirubin,Total 0.3 mg/dl (0.2-1.3); Blood Urea Nitrogen 9 mg/dl (7-17); Calcium 8.7 mg/dl (8.4-10.2); Carbon Dioxide 31 mmol/L (22.0-30.0); Chloride 103 mmol/L (98-107); Creatinine Clearance Estimated 134 mL/min (50-200); Estimated Glomerular Filt Rate 88 ml/min (>60); GFR (African American) 106 ML/MIN (>60); Glucose 86 mg/dl (74-100); Potassium 3.6 mmoL/L (3.5-5.1); Sodium 140 mmol/L (136-145); Total Protein,Serum 6.5 g/dl (6.3-8.2)
--- NOTE | 2023-12-04 06:39 | XR_ITS ---
FINAL REPORT CLINICAL HISTORY: Abdominal bloating COMPARISON: 12/02/2023 FINDINGS: THREE-VIEW ABDOMEN An AP view of the the chest was obtained. The lungs are clear. Heart mediastinum are within normal limits. There is no pneumothorax. Flat and upright views of the abdomen were obtained. There is residual contrast in the colon. Postoperative changes are seen of the right upper quadrant and pelvis. There is a nonspecific bowel gas pattern with multiple air-filled small bowel loops. Partial small bowel obstruction not excluded. IMPRESSION: No acute cardiopulmonary process. Multiple air-filled bowel loops. Partial small bowel obstruction not excluded. Reviewed, Interpreted and Dictated by Christiaon Puente III, MD Transcribed by Hyun Boggs Authenticated and [facility]
--- NOTE | 2023-12-04 07:00 | P.PN_ITS ---
Subjective Narrative: Patient states that she had a rough night . After full liquid dinner (cream of chicken soup) she developed some nausea and bloating. She states that she feels like that if she vomits she would have some relief. She has been given Zofran. She did have a bowel movement approximately 9 PM last night. Exam Data for Last 24 hours Vital signs and Labs for Last 24 Hours: Temp Pulse Resp BP Pulse Ox O2 Del Method 98.3 F 69 16 142/78 H 98 Room Air 12/04/23 04:00 12/04/23 04:00 12/04/23 04:00 12/04/23 04:00 12/04/23 04:00 12/04/23 04:00 Laboratory Results - last 24 hr 12/03/23 05:18: Magnesium 1.9 12/04/23 05:26: WBC 11.2 H, RBC 4.33, Hgb 13.6, Hct 43.0, MCV 99.2 H, MCH 31.5 H , MCHC 31.7 L, RDW 14.1, Plt Count 288, MPV 9.7, Neut % (Auto) 71.2, Lymph % (Auto) 17.9, [place] % (Auto) 6.4, Eos % (Auto) 3.8, Baso % (Auto) 0.7, Neut # (Auto) 7.9 H, Lymph # (Auto) 2.0, [place] # (Auto) 0.7, Eos # (Auto) 0.4, Baso # (Auto) 0.1, Sodium 140, Potassium 3.6, Chloride 103, Carbon Dioxide 31 H, Anion Gap 9.6, BUN 9, Creatinine 0.70, Estimated Creat Clear 134, Estimated GFR 88, Est GFR ( Amer) 106, Glucose 86, Calcium 8.7, Magnesium 2.0, Total Bilirubin 0.3, AST 49 H D, ALT 51, Alkaline Phosphatase 74, Total Protein 6.5, Albumin 3.5, Globulin 3.0, Albumin/Globulin Ratio 1.2 I & O for Last 24 hours: Intake & Output 12/01/23 12/02/23 12/03/23 12/04/23 11:59 11:59 11:59 11:59 Intake Total 0 / 0 600 / 600 450 / 450 1090 / 1090 Output Total 900 / 900 450 / 450 0 / 0 0 / 0 Balance -900 / -900 150 / 150 450 / 450 1090 / 1090 Weight 203 lb 11.2 oz 204 lb 1.6 oz 204 lb 6.4 oz 202 lb *Routine Abdominal Exam Abdominal: Present soft Progress Note: A&P Assessment and plan (1) SBO (small bowel obstruction): Status: Acute Assessment and plan: I will tentatively make her n.p.o. at this point. Check acute abdominal series. Could need operative intervention however, may at least need regression of diet. (2) VERÓNICA (obstructive sleep apnea): Status: Acute (3) Obesity, Class II, BMI 35-39.9: Status: Acute (4) Essential hypertension: Status: Acute
[2023-12-04 07:48] VITALS: BP 133/83; PULSE 67; RESP 18; TEMP 36.7; O2SAT 96
[2023-12-04] MEDS: AMLODIPINE 5MG TABLET 5 MG PO (08:28)
--- NOTE | 2023-12-04 10:33 | EXP.ACUTE.PN ---
Subjective *Date: 12/04/23 *Time: 13:53 Interval history: Had discomfort and nausea overnight. No roge emesis. Feeling more bloated today. Surgery backed off of diet. No fever overnight. No shortness of breath or chest pain. Medical Exam Vital signs and Labs for Last 24 Hours: Vital Signs Temp Pulse Resp BP Pulse Ox O2 Del Method 12/04/23 09:00 Room Air 12/04/23 08:00 Room Air 12/04/23 07:48 98.1 F 67 18 133/83 96 Room Air 12/04/23 07:00 Room Air 12/04/23 05:00 Room Air 12/04/23 04:00 98.3 F 69 16 142/78 H 98 Room Air 12/04/23 03:00 Room Air 12/04/23 01:00 Room Air 12/03/23 23:00 Room Air 12/03/23 21:00 Room Air 12/03/23 20:00 Room Air 12/03/23 20:00 98.1 F 64 16 142/79 H 99 12/03/23 16:00 98.3 F 61 21 134/84 100 Room Air Intake and Output 12/03/23 12/04/23 12/04/23 23:59 07:59 15:59 Intake Total 440 / 1540 240 / 240 Output Total 0 / 0 0 / 0 Balance 440 / 1540 240 / 240 Intake: Intake, Oral Amount 440 / 1090 240 / 240 Output: Output, Urine Amount 0 / 0 0 / 0 Other: Number of Voids 3 Number of Unmeasured Voids 1 1 Weight 91.626 kg Patient Weight 12/04/23 23:59 Weight 91.626 kg Laboratory Results - last 24 hr 12/04/23 05:26: WBC 11.2 H, RBC 4.33, Hgb 13.6, Hct 43.0, MCV 99.2 H, MCH 31.5 H, MCHC 31.7 L, RDW 14.1, Plt Count 288, MPV 9.7, Neut % (Auto) 71.2, Lymph % (Auto) 17.9, [place] % (Auto) 6.4, Eos % (Auto) 3.8, Baso % (Auto) 0.7, Neut # (Auto) 7.9 H, Lymph # (Auto) 2.0, [place] # (Auto) 0.7, Eos # (Auto) 0.4, Baso # (Auto) 0.1, Sodium 140, Potassium 3.6, Chloride 103, Carbon Dioxide 31 H, Anion Gap 9.6, BUN 9, Creatinine 0.70, Estimated Creat Clear 134, Estimated GFR 88, Est GFR ( Amer) 106, Glucose 86, Calcium 8.7, Magnesium 2.0, Total Bilirubin 0.3, AST 49 H D, ALT 51, Alkaline Phosphatase 74, Total Protein 6.5, Albumin 3.5, Globulin 3.0, Albumin/Globulin Ratio 1.2 I & O for Labs for Last 24 Hours: Intake & Output 12/01/23 12/02/23 12/03/23 12/04/23 23:59 23:59 23:59 23:59 Intake Total 600 / 600 0 / 450 1300 / 1540 240 / 240 Output Total 900 / 900 150 / 150 0 / 0 0 / 0 Balance -300 / -300 -150 / 300 1300 / 1540 240 / 240 Weight 92.3 kg 92.578 kg 92.714 kg 91.626 kg Constitutional: Present no acute distress Head: Present atraumatic and normocephalic ENT: Present normal exam Neck: Present normal inspection Respiratory: Present normal respiratory effort Cardiac: Present Reg Rate and Rhythm GI: Present soft, tenderness (Minimal, nonfocal) and diminished bowel sounds; Absent distention or normal bowel sounds Extremities: Present normal inspection and full ROM Skin: Present intact; Absent erythema Neuro: Present Grossly Intact and moves all extremities Assessment and Plan *Assessment and plan (1) SBO (small bowel obstruction): Status: Acute Category: Medical Code(s): K56.609 - Unspecified intestinal obstruction, unspecified as to partial versus complete obstruction (2) VERÓNICA (obstructive sleep apnea): Status: Acute Category: Medical Code(s): G47.33 - Obstructive sleep apnea (adult) (pediatric) (3) Obesity, Class II, BMI 35-39.9: Status: Acute Category: Medical Code(s): E66.9 - Obesity, unspecified (4) Essential hypertension: Status: Acute Category: Medical Code(s): I10 - Essential (primary) hypertension Plan Patient is a 53-year-old female who presents to the hospital due to nausea vomiting diarrhea for the past few days. According to patient she recently started using Ozempic last week and she thought her symptoms could be due to Ozempic. Patient mentions her vomiting is nonbloody, diarrhea is nonbloody. Had an episode overnight with distention and abdominal pain. No roge emesis but did have mild nausea. Diet held today. Encouraged to ambulate. Anticipate discharge in the coming days if able to advance diet. Problems addressed as follows: Nausea vomiting diarrhea Small bowel obstruction Leukocytosis likely reactive Hypoglycemia -White cell count stable 11.2. Has had a bowel movement the past 24 hours. Having more pain however. Paused diet today. Discussed case with surgery, will back off on diet and go slower as patient appears to have some intermittent discomfort. Kidney function stable with BUN of 9, creatinine 0.7. Repeat CBC, CMP, magnesium ordered for the morning. -Continue fingersticks ACHS given hypoglycemia -Will consider reinitiating diet pending improvement abdominal discomfort today. Hypertension: Continue home amlodipine 5 mg daily. Obesity Obstructive sleep apnea -Complicates all aspects of her care. DVT prophylaxis-heparin
--- NOTE | 2023-12-04 12:59 | DIET.NUTRFU ---
Patients diet had to be downgraded back to NPO, rough night had some increased nausea from full liquids. Patient is at increased risk of malnutrition secondary to NPO from 11/28-12/02 then only 1 meal of clear liquids and 1 meal of full. Lacking nutritional intake. Sx indicated that she could need operative intervention however, may at least need regression of diet. If unable to tolerate oral diet may benefit from TPN to provide nutritional needs. Will continue to monitor diet status/tolerance. Will need dietary supplements to meet nutritional secondary to depletion will add when tolerating oral diet. Dextrose lactated ringers provided on 11/30 and 12/01 to help meet hydration/caloric needs. BM noted on 11/30 x2 and 1 on 12/02. Electrolytes WNL on 12/03
--- NOTE | 2023-12-04 14:23 | P.PN_ITS ---
Subjective Narrative: Patient states that she feels better this afternoon. She has no complaints. No abdominal pain. Passing gas. No nausea. Ambulating. Exam Data for Last 24 hours Vital signs and Labs for Last 24 Hours: Temp Pulse Resp BP Pulse Ox O2 Del Method 98.1 F 67 18 133/83 96 Room Air 12/04/23 07:48 12/04/23 07:48 12/04/23 07:48 12/04/23 07:48 12/04/23 07:48 12/04/23 09:00 Laboratory Results - last 24 hr 12/04/23 05:26: WBC 11.2 H, RBC 4.33, Hgb 13.6, Hct 43.0, MCV 99.2 H, MCH 31.5 H , MCHC 31.7 L, RDW 14.1, Plt Count 288, MPV 9.7, Neut % (Auto) 71.2, Lymph % (Auto) 17.9, [place] % (Auto) 6.4, Eos % (Auto) 3.8, Baso % (Auto) 0.7, Neut # ( Auto) 7.9 H, Lymph # (Auto) 2.0, [place] # (Auto) 0.7, Eos # (Auto) 0.4, Baso # (Auto) 0.1, Sodium 140, Potassium 3.6, Chloride 103, Carbon Dioxide 31 H, Anion Gap 9.6, BUN 9, Creatinine 0.70, Estimated Creat Clear 134, Estimated GFR 88, Est GFR ( Amer) 106, Glucose 86, Calcium 8.7, Magnesium 2.0, Total Bilirubin 0.3, AST 49 H D, ALT 51, Alkaline Phosphatase 74, Total Protein 6.5, Albumin 3.5, Globulin 3.0, Albumin/Globulin Ratio 1.2 I & O for Last 24 hours: Intake & Output 12/02/23 12/03/23 12/04/23 12/05/23 11:59 11:59 11:59 11:59 Intake Total 600 / 600 450 / 450 1090 / 1090 0 / 0 Output Total 450 / 450 0 / 0 0 / 0 Balance 150 / 150 450 / 450 1090 / 1090 0 / 0 Weight 204 lb 1.6 oz 204 lb 6.4 oz 202 lb *Routine Abdominal Exam Abdominal: Present soft; Absent tenderness Progress Note: A&P Assessment and plan (1) SBO (small bowel obstruction): Status: Acute Assessment and plan: Acute abdominal series reviewed. Shows some diffuse bowel gas pattern with some air-fluid levels in the small bowel but gas and contrast throughout the large bowel including the rectum. This may be more consistent with slowly resolving ileus. Patient may very well have a chronic underlying low-grade obstruction given her symptoms for years. At this point we will refrain from definite surgical intervention. I will go ahead and start her on some clear liquids with very slow advancement cautiously. If she has deterioration could require operative intervention. (2) VERÓNICA (obstructive sleep apnea): Status: Acute (3) Obesity, Class II, BMI 35-39.9: Status: Acute (4) Essential hypertension: Status: Acute
[2023-12-04 15:22] VITALS: BP 144/82; RESP 18; TEMP 36.6; O2SAT 97
--- NOTE | 2023-12-04 18:27 | PC.NURSE ---
TOLERATING CLEAR LIQUIDS WELL. NO N/V THIS SHIFT. AMBULATED IN HALLWAY AROUND UNIT MULTIPLE TIMES.
[2023-12-04 19:58] VITALS: O2SAT 97
[2023-12-04 20:00] VITALS: BP 157/77; PULSE 69; RESP 18; TEMP 37.1; O2SAT 97
[2023-12-04] MEDS: SIMETHICONE 80MG CHEWABLE TABLET 160 MG PO (20:32)
[2023-12-05] MEDS: HEPARIN SODIUM 5,000 UNIT/ML VIAL 5000 UNIT SQ ×3 (03:53→20:39)
[2023-12-05 04:00] VITALS: BP 144/81; PULSE 64; RESP 18; TEMP 36.7; O2SAT 98; BMI 37.0
[2023-12-05 07:39] LABS: Alanine Aminotransferase 45 U/L (12-78); Albumin Level 3.6 g/dl (3.5-5.0); Albumin/Globulin Ratio 1.3 (1.1-1.8); Alkaline Phosphatase 77 U/L (38-126); Anion Gap 11.5 mEq/L (5-15); Aspartate Amino Transferase 45 U/L (14-36); Bilirubin,Total 0.4 mg/dl (0.2-1.3); Blood Urea Nitrogen 15 mg/dl (7-17); Carbon Dioxide 26 mmol/L (22.0-30.0); Chloride 104 mmol/L (98-107); Creatinine Clearance Estimated 156 mL/min (50-200); Estimated Glomerular Filt Rate 105 ml/min (>60); GFR (African American) 127 ML/MIN (>60); Globulin 2.8 g/dL (1.3-3.2); Glucose 74 mg/dl (74-100); Potassium 3.5 mmoL/L (3.5-5.1); Sodium 138 mmol/L (136-145); Total Protein,Serum 6.4 g/dl (6.3-8.2)
[2023-12-05 08:00] VITALS: BP 135/78; PULSE 71; RESP 16; TEMP 36.6; O2SAT 98
[2023-12-05] MEDS: SIMETHICONE 80MG CHEWABLE TABLET 160 MG PO ×3 (08:43→20:39)
[2023-12-05] MEDS: AMLODIPINE 5MG TABLET 5 MG PO (08:43)
--- NOTE | 2023-12-05 12:15 | EXP.SURG.PN ---
Subjective Narrative: No acute events overnight. She is passing flatus, and had a liquid bowel movement this morning. She has a clear liquid diet ordered, and has limited her intake to small sips of tea. Her belly is rolling, but she does not have any real abdominal discomfort. Her last and only semaglutide injection was 11/24/2023. Exam Data for Last 24 hours Vital signs and Labs for Last 24 Hours: Temp Pulse Resp BP Pulse Ox O2 Del Method 97.8 F 71 16 135/78 98 Room Air 12/05/23 08:00 12/05/23 08:00 12/05/23 08:00 12/05/23 08:00 12/05/23 08:00 12/05/23 09:00 Laboratory Results - last 24 hr 12/05/23 06:15: Sodium 138, Potassium 3.5, Chloride 104, Carbon Dioxide 26, Anion Gap 11.5, BUN 15 D, Creatinine 0.60, Estimated Creat Clear 156, Estimated GFR 105, Est GFR ( Amer) 127, Glucose 74, Calcium 9.0, Magnesium 2.0, Total Bilirubin 0.4, AST 45 H, ALT 45, Alkaline Phosphatase 77, Total Protein 6.4, Albumin 3.6, Globulin 2.8, Albumin/Globulin Ratio 1.3 I & O for Last 24 hours: Intake & Output 12/02/23 12/03/23 12/04/23 12/05/23 23:59 23:59 23:59 23:59 Intake Total 0 / 450 1300 / 1540 480 / 720 240 / 240 Output Total 150 / 150 0 / 0 0 / 0 0 / 0 Balance -150 / 300 1300 / 1540 480 / 720 240 / 240 Weight 204 lb 1.6 oz 204 lb 6.4 oz 202 lb 201 lb 6 oz Constitutional Constitutional: no acute distress and cooperative *Routine Abdominal Exam Abdominal: Present soft and normoactive bowel sounds; Absent tenderness Comments: Mild distention. Right paramedian and midline up to the umbilicus scars noted. Progress Note: A&P Assessment and plan (1) SBO (small bowel obstruction): Status: Acute Assessment and plan: She is stable today. I would give her another 24 hours on clear liquids before extremely slow advancement of diet. She may have had some exacerbation of chronic low-grade partial small bowel obstruction, but KUB yesterday looked good to me, and contrast and air are in the colon. She has normoactive bowel sounds, no abdominal pain, and has not vomited. She continues to require antiemetics. In my experience, it could take up to 2 weeks for GLP-1 (semaglutide) to wear off. Would consider urgent surgical exploration only for declining physical exam, vital signs, concerning labs or imaging. Discussed the plan at length with patient and her . It would likely consist of diagnostic laparoscopy with probable conversion to exploratory laparotomy, and would be a high risk undertaking due to her many previous abdominal surgeries. IVF while NPO. If does not eat soon, consider PICC and TPN. (2) VERÓNICA (obstructive sleep apnea): Status: Acute (3) Obesity, Class II, BMI 35-39.9: Status: Acute (4) Essential hypertension: Status: Acute
--- NOTE | 2023-12-05 12:27 | EXP.PN ---
Subjective *Date: 12/05/23 *Time: 12:27 Interval history: seen at bedside, denied any acute events overnight, mentions she had abdominal pain while eating dinner last night, breakfast was ok, denied fevers chills. passing gas and had BM yesterday Exam Data for Last 24 hours Vital signs and Labs for Last 24 Hours: Temp Pulse Resp BP Pulse Ox O2 Del Method 97.8 F 71 16 135/78 98 Room Air 12/05/23 08:00 12/05/23 08:00 12/05/23 08:00 12/05/23 08:00 12/05/23 08:00 12/05/23 09:00 Laboratory Results - last 24 hr 12/05/23 06:15: Sodium 138, Potassium 3.5, Chloride 104, Carbon Dioxide 26, Anion Gap 11.5, BUN 15 D, Creatinine 0.60, Estimated Creat Clear 156, Estimated GFR 105, Est GFR ( Amer) 127, Glucose 74, Calcium 9.0, Magnesium 2.0, Total Bilirubin 0.4, AST 45 H, ALT 45, Alkaline Phosphatase 77, Total Protein 6.4, Albumin 3.6, Globulin 2.8, Albumin/Globulin Ratio 1.3 I & O for Last 24 hours: Intake & Output 12/02/23 12/03/23 12/04/23 12/05/23 23:59 23:59 23:59 23:59 Intake Total 0 / 450 1300 / 1540 480 / 720 240 / 240 Output Total 150 / 150 0 / 0 0 / 0 0 / 0 Balance -150 / 300 1300 / 1540 480 / 720 240 / 240 Weight 92.578 kg 92.714 kg 91.626 kg 91.342 kg Constitutional Constitutional: no acute distress *Routine HEENT Exam Head: Present normocephalic Eye: Present EOMI and PERRL ENT: Present mucous membranes moist *Routine Neck Exam Neck: Present supple; Absent lymphadenopathy *Routine Respiratory Exam Respiratory: Present CTA bilaterally *Routine Cardiovascular Exam Cardiovascular: Present RRR *Routine Abdominal Exam Abdominal: Present soft and normoactive bowel sounds Comments: mild generalized abdominal discomfort *Routine Extremities Exam Extremities: Absent cyanosis, clubbing or edema *Routine Skin Exam Skin: Present warm; Absent rash *Routine Neurological Exam Neurological: Present alert and oriented X3 Assessment and Plan *Assessment and plan (1) SBO (small bowel obstruction): Status: Acute Category: Medical Code(s): K56.609 - Unspecified intestinal obstruction, unspecified as to partial versus complete obstruction (2) VERÓNICA (obstructive sleep apnea): Status: Acute Category: Medical Code(s): G47.33 - Obstructive sleep apnea (adult) (pediatric) (3) Obesity, Class II, BMI 35-39.9: Status: Acute Category: Medical Code(s): E66.9 - Obesity, unspecified (4) Essential hypertension: Status: Acute Category: Medical Code(s): I10 - Essential (primary) hypertension Plan Patient is a 53-year-old female who presents to the hospital due to nausea vomiting diarrhea for the past few days. According to patient she recently started using Ozempic last week and she thought her symptoms could be due to Ozempic. Patient mentions her vomiting is nonbloody, diarrhea is nonbloody. Had an episode overnight with distention and abdominal pain. No roge emesis but did have mild nausea. Diet held today. Encouraged to ambulate. Nausea vomiting diarrhea Small bowel obstruction Leukocytosis likely reactive Hypoglycemia - stable advance diet as tolerated but slowly per surgery, 24hrs on clear liquids, serial abdominal xrays Hypertension: Continue home amlodipine 5 mg daily. Obesity Obstructive sleep apnea -Complicates all aspects of her care. DVT prophylaxis-heparin
[2023-12-05] MEDS: D5W/0.45% NaCl w/20mEq KCL 1,000 ML 125 ML IV ×2 (15:00→23:00)
[2023-12-05 16:00] VITALS: BP 137/81; PULSE 68; RESP 17; TEMP 36.7; O2SAT 98
--- NOTE | 2023-12-05 17:10 | PC.NURSE ---
no acute events this shift. tolerating diet well. denies n/v and pain. pt has expressed interest in advancing diet. ambulating without difficulty.
[2023-12-05 20:00] VITALS: BP 149/77; PULSE 68; RESP 18; TEMP 36.8; O2SAT 97
[2023-12-05] MEDS: LIDOCAINE 5% TRANSDERMAL PATCH 1 EACH TP (21:10)
--- NOTE | 2023-12-05 21:14 | PC.NURSE ---
Pt requests that we do not enter the room through sleeping hours, no vital signs. Educated pt on the benefits of vitals and hourly checking. Pt okay with not proceeding. Anthony SAAVEDRA aware.
[2023-12-05] MEDS: MELATONIN 5MG TABLET 10 MG PO (23:05)
--- NOTE | 2023-12-06 01:49 | PC.NURSE ---
Entered pt room at this time due to IV pump alarm, pt resting and has no complaints.
[2023-12-06 04:00] VITALS: BP 156/82; PULSE 58; RESP 18; TEMP 36.7; O2SAT 98; BMI 37.3
[2023-12-06] MEDS: HEPARIN SODIUM 5,000 UNIT/ML VIAL 5000 UNIT SQ ×3 (04:11→20:10)
--- NOTE | 2023-12-06 04:54 | PC.NURSE ---
Pt is alert and oriented. Bowel sounds active. Abdomen soft and nontender. Pt states she has passed gas and had a bowel movement, not watery but not formed either. Pt independent in the room. Pt did complain of back pain one time, treated per nov. Pt requested sleep aid, treated per nov. This RN and Bren SRNA only entered the room when pt requested help, pt was agreeable at the beginning of the shift to receive meds at 0400 and vital signs at that time. Pt has voiced no other complaints, no nausea or vomiting present. Call light in reach.
[2023-12-06] MEDS: D5W/0.45% NaCl w/20mEq KCL 1,000 ML 125 ML IV ×2 (07:02→23:12)
[2023-12-06 07:51] LABS: Alanine Aminotransferase 45 U/L (12-78); Albumin Level 3.7 g/dl (3.5-5.0); Albumin/Globulin Ratio 1.3 (1.1-1.8); Alkaline Phosphatase 79 U/L (38-126); Anion Gap 7.6 mEq/L (5-15); Aspartate Amino Transferase 40 U/L (14-36); Bilirubin,Total 0.4 mg/dl (0.2-1.3); Blood Urea Nitrogen 10 mg/dl (7-17); Calcium 9.1 mg/dl (8.4-10.2); Carbon Dioxide 29 mmol/L (22.0-30.0); Chloride 105 mmol/L (98-107); Creatinine Clearance Estimated 157 mL/min (50-200); Estimated Glomerular Filt Rate 105 ml/min (>60); GFR (African American) 127 ML/MIN (>60); Globulin 2.8 g/dL (1.3-3.2); Glucose 124 mg/dl (74-100); Potassium 3.6 mmoL/L (3.5-5.1); Sodium 138 mmol/L (136-145); Total Protein,Serum 6.5 g/dl (6.3-8.2)
[2023-12-06 08:00] VITALS: BP 138/76; PULSE 72; RESP 18; TEMP 36.6; O2SAT 94
[2023-12-06] MEDS: SIMETHICONE 80MG CHEWABLE TABLET 160 MG PO ×3 (08:25→20:10)
[2023-12-06] MEDS: AMLODIPINE 5MG TABLET 5 MG PO (08:25)
--- NOTE | 2023-12-06 10:18 | EXP.SURG.PN ---
Subjective Narrative: No acute events overnight. She is doing better today. She has had another liquid bowel movement and continues to pass flatus. She denies nausea or vomiting. She tolerated quite a bit more of her clear liquid diet than she did the day before, including 2 cups of broth, hot tea, and [place] sweet tea. She requests a hamburger or steak today. Exam Data for Last 24 hours Vital signs and Labs for Last 24 Hours: Temp Pulse Resp BP Pulse Ox O2 Del Method 97.8 F 72 18 138/76 94 L Room Air 12/06/23 08:00 12/06/23 08:00 12/06/23 08:00 12/06/23 08:00 12/06/23 08:00 12/06/23 08:00 Laboratory Results - last 24 hr 12/06/23 06:20: Sodium 138, Potassium 3.6, Chloride 105, Carbon Dioxide 29, Anion Gap 7.6, BUN 10 D, Creatinine 0.60, Estimated Creat Clear 157, Estimated GFR 105, Est GFR ( Amer) 127, Glucose 124 H, Calcium 9.1, Total Bilirubin 0.4, AST 40 H, ALT 45, Alkaline Phosphatase 79, Total Protein 6.5, Albumin 3.7, Globulin 2.8, Albumin/Globulin Ratio 1.3 I & O for Last 24 hours: Intake & Output 12/03/23 12/04/23 12/05/23 12/06/23 23:59 23:59 23:59 23:59 Intake Total 1300 / 1540 480 / 720 1073 / 1073 1361 / 1361 Output Total 0 / 0 0 / 0 0 / 0 0 / 0 Balance 1300 / 1540 480 / 720 1073 / 1073 1361 / 1361 Weight 204 lb 6.4 oz 202 lb 201 lb 6 oz 202 lb 11.2 oz Constitutional Constitutional: no acute distress *Routine Abdominal Exam Abdominal: Present soft and normoactive bowel sounds; Absent tenderness or distended Progress Note: A&P Assessment and plan (1) SBO (small bowel obstruction): Status: Acute Assessment and plan: She is improving clinically today. Vital signs and CMP are nonconcerning. Will cautiously advance diet to full liquids. She is instructed to stop drinking if she develops abdominal pain or nausea. She requests Benadryl as needed nightly for sleep, as she takes Tylenol PM at home every night. She complains of lower right back pain, and reports that this usually happens when she has a lot of vomiting. She also thinks that she is ambulating a lot less than usual, I recommend that she continue to ambulate in the halls and sit up in the chair is much as possible. (2) VERÓNICA (obstructive sleep apnea): Status: Acute (3) Obesity, Class II, BMI 35-39.9: Status: Acute (4) Essential hypertension: Status: Acute
--- NOTE | 2023-12-06 10:31 | EXP.PN ---
Subjective *Date: 12/06/23 *Time: 10:31 Interval history: seen at bedside, denied any acute events overnight, mentions she had abdominal pain while eating dinner last night, breakfast was ok, denied fevers chills. passing gas and had BM last night Exam Data for Last 24 hours Vital signs and Labs for Last 24 Hours: Temp Pulse Resp BP Pulse Ox O2 Del Method 97.8 F 72 18 138/76 94 L Room Air 12/06/23 08:00 12/06/23 08:00 12/06/23 08:00 12/06/23 08:00 12/06/23 08:00 12/06/23 08:00 Laboratory Results - last 24 hr 12/06/23 06:20: Sodium 138, Potassium 3.6, Chloride 105, Carbon Dioxide 29, Anion Gap 7.6, BUN 10 D, Creatinine 0.60, Estimated Creat Clear 157, Estimated GFR 105, Est GFR ( Amer) 127, Glucose 124 H, Calcium 9.1, Total Bilirubin 0.4, AST 40 H, ALT 45, Alkaline Phosphatase 79, Total Protein 6.5, Albumin 3.7, Globulin 2.8, Albumin/Globulin Ratio 1.3 I & O for Last 24 hours: Intake & Output 12/03/23 12/04/23 12/05/23 12/06/23 23:59 23:59 23:59 23:59 Intake Total 1300 / 1540 480 / 720 1073 / 1073 1601 / 1601 Output Total 0 / 0 0 / 0 0 / 0 0 / 0 Balance 1300 / 1540 480 / 720 1073 / 1073 1601 / 1601 Weight 92.714 kg 91.626 kg 91.342 kg 91.943 kg Constitutional Constitutional: no acute distress *Routine HEENT Exam Head: Present normocephalic Eye: Present EOMI and PERRL ENT: Present mucous membranes moist *Routine Neck Exam Neck: Present supple; Absent lymphadenopathy *Routine Respiratory Exam Respiratory: Present CTA bilaterally *Routine Cardiovascular Exam Cardiovascular: Present RRR *Routine Abdominal Exam Abdominal: Present soft and normoactive bowel sounds; Absent tenderness *Routine Extremities Exam Extremities: Absent cyanosis, clubbing or edema *Routine Skin Exam Skin: Present warm; Absent rash *Routine Neurological Exam Neurological: Present alert and oriented X3 Assessment and Plan *Assessment and plan (1) SBO (small bowel obstruction): Status: Acute Category: Medical Code(s): K56.609 - Unspecified intestinal obstruction, unspecified as to partial versus complete obstruction (2) VERÓNICA (obstructive sleep apnea): Status: Acute Category: Medical Code(s): G47.33 - Obstructive sleep apnea (adult) (pediatric) (3) Obesity, Class II, BMI 35-39.9: Status: Acute Category: Medical Code(s): E66.9 - Obesity, unspecified (4) Essential hypertension: Status: Acute Category: Medical Code(s): I10 - Essential (primary) hypertension Plan Patient is a 53-year-old female who presents to the hospital due to nausea vomiting diarrhea for the past few days. According to patient she recently started using Ozempic last week and she thought her symptoms could be due to Ozempic. Patient mentions her vomiting is nonbloody, diarrhea is nonbloody. Had an episode overnight with distention and abdominal pain. No roge emesis but did have mild nausea. Diet held today. Encouraged to ambulate. Nausea vomiting diarrhea Small bowel obstruction Leukocytosis likely reactive Hypoglycemia - stable advance diet as tolerated but slowly per surgery, 24hrs on clear liquids, serial abdominal xrays counselled on more ambulation and chair time Hypertension: Continue home amlodipine 5 mg daily. Obesity Obstructive sleep apnea -Complicates all aspects of her care. DVT prophylaxis-heparin
--- NOTE | 2023-12-06 14:47 | PC.NURSE ---
PT IS AOX4, HAS DENIED PAIN THIS SHIFT. AMBULATING IN ROOM WITHOUT DIFFICULTY. TOLERATING DIET WELL. HAS SAT UP TO CHAIR FOR MOST OF SHIFT.
[2023-12-06 16:00] VITALS: BP 132/74; PULSE 67; RESP 17; TEMP 36.8; O2SAT 97
[2023-12-06 20:00] VITALS: BP 132/77; PULSE 74; RESP 16; TEMP 36.7; O2SAT 95
[2023-12-06] MEDS: diphenhydrAMINE 25MG CAPSULE 25 MG PO (20:10)
[2023-12-06] MEDS: LIDOCAINE 5% TRANSDERMAL PATCH 1 EACH TP (20:10)
--- NOTE | 2023-12-07 03:36 | PC.NURSE ---
Opened pt door to check, observed chest rise and fall, pt resting in bed.
[2023-12-07 04:00] VITALS: BP 142/82; PULSE 62; RESP 18; TEMP 36.9; O2SAT 97; BMI 26.2
[2023-12-07] MEDS: HEPARIN SODIUM 5,000 UNIT/ML VIAL 5000 UNIT SQ ×2 (04:06→13:21)
--- NOTE | 2023-12-07 04:46 | PC.NURSE ---
Entered room to check patient, noted to be on right side, chest rise and fall observed, pt resting.
--- NOTE | 2023-12-07 04:46 | PC.NURSE ---
Pt is alert and oriented. States she had 1 loose bowel movement this shift. Passing gas. No complaints of pain, nausea or vomiting. Independent in room. Abdomen soft and nontender, bowel sounds active. Call light in reach.
[2023-12-07 06:48] LABS: Basophils # 0.1 K/mm3 (0-0.2); Basophils % 0.9 % (0.1-2.0); Eosinophils # 0.4 K/mm3 (0.0-0.4); Eosinophils % 3.8 % (0.1-12.0); Hematocrit 38.8 % (37.0-47.0); Hemoglobin 12.5 g/dL (12.2-16.2); Lymphocytes # 2.6 K/mm3 (0.7-4.5); Lymphocytes % 28.8 % (10-50); Mean Corpuscular HGB Conc 32.3 g/dL (31.8-35.4); Mean Corpuscular Hemoglobin 31.7 pg (27.0-31.2); Mean Platelet Volume 10.3 fl (7.4-10.4); Monocytes # 0.7 K/mm3 (0.1-1.0); Monocytes % 7.4 % (1.7-9.3); Neutrophils # 5.4 K/mm3 (1.8-7.8); Neutrophils % 59.2 % (37.0-80.0); Platelet Count 268 K/mm3 (142-424); Red Blood Count 3.96 M/mm3 (4.20-5.40); Red Cell Distribution Width 14.2 % (11.5-17.5); White Blood Count 9.2 K/mm3 (4.8-10.8)
[2023-12-07 07:01] LABS: Alanine Aminotransferase 42 U/L (12-78); Albumin Level 3.4 g/dl (3.5-5.0); Albumin/Globulin Ratio 1.2 (1.1-1.8); Alkaline Phosphatase 71 U/L (38-126); Anion Gap 7.5 mEq/L (5-15); Aspartate Amino Transferase 38 U/L (14-36); Bilirubin,Total 0.3 mg/dl (0.2-1.3); Blood Urea Nitrogen 5 mg/dl (7-17); Carbon Dioxide 28 mmol/L (22.0-30.0); Chloride 107 mmol/L (98-107); Creatinine Clearance Estimated 111 mL/min (50-200); Estimated Glomerular Filt Rate 105 ml/min (>60); GFR (African American) 127 ML/MIN (>60); Globulin 2.8 g/dL (1.3-3.2); Glucose 117 mg/dl (74-100); Potassium 3.5 mmoL/L (3.5-5.1); Sodium 139 mmol/L (136-145); Total Protein,Serum 6.2 g/dl (6.3-8.2)
--- NOTE | 2023-12-07 07:57 | EXP.DC.SUM ---
General Admission date:: 11/29/23 Discharge date: 12/08/23 HPI HPI HPI: Patient is a 53-year-old female from [facility] with a history of obstructive sleep apnea, hypertension. She has previously had several C-sections, hysterectomy at which time she required apparent intestinal surgery which sounds like enterotomy repair, appendectomy (large paramedian exploratory surgery for perforated appendicitis), ventral hernia repair, cholecystectomy. Patient had recently started Ozempic and was given her first dose on 11/24/2023. She states that since that time she has felt ill. She describes upper abdominal pain with nausea and nonbilious vomiting with associated diarrhea beginning shortly thereafter. She presented to the emergency department on 11/29/2023. Evaluation in the emergency department revealed slight transaminitis and mild leukocytosis. She underwent a CT scan. This revealed distended small bowel loops containing fluid in the mid and left abdomen measuring up to 3.8 cm. Transition zone not definitively seen. Colon decompressed. Compatible with small bowel obstruction. She was admitted for inpatient management. She did not have a nasogastric tube placed. Surgical consultation was apparently ordered. Patient has continued to require some pain medication. She remains bloated. She has had nausea. Hospital Course Hospital Course Hospital Course: Patient is a 53-year-old female who presents to the hospital due to nausea vomiting diarrhea for the past few days. According to patient she recently started using Ozempic last week and she thought her symptoms could be due to Ozempic. Patient mentions her vomiting is nonbloody, diarrhea is nonbloody. NG was placed shortly after admission. Bowel rest continued for few days. She began to have bowel movements and pass gas, small bowel follow-through with oral contrast was performed. Contrast moved all the way to the rectum. No roge obstruction. Able to slowly advance diet with 1 brief bolus. Patient tolerating full liquid diet on day of discharge with no further pain or emesis. Stable to discharge home to slowly advance to regular diet. Surgery consulted and assisted with care. Will have close follow-up for further evaluation and management. Stable to discharge home. Problems addressed as follows: Nausea vomiting diarrhea Small bowel obstruction Leukocytosis likely reactive Hypoglycemia -White cell count initially elevated, slightly improved and normal on day of discharge. Bowel rest with NG initially, surgery consulted. Serial exams and imaging of abdomen. Bowel slowly began to move. Concern for partial obstruction given previous history of surgeries. Progressed to having bowel movements and passing gas. Able to slowly advance diet. Given her improvement clinically and tolerance of p.o. intake, stable to discharge home. Recommend follow-up with surgery in the outpatient setting for further management. Hypertension: Continue home amlodipine 5 mg daily. Obesity Obstructive sleep apnea -Complicates all aspects of her care. Exam Data for Last 24 hours Vital signs and Labs for Last 24 Hours: Temp Pulse Resp BP Pulse Ox O2 Del Method 98.5 F 62 18 142/82 H 97 Room Air 12/07/23 04:00 12/07/23 04:00 12/07/23 04:00 12/07/23 04:00 12/07/23 04:00 12/07/23 06:48 Laboratory Results - last 24 hr 12/06/23 06:20: Sodium 138, Potassium 3.6, Chloride 105, Carbon Dioxide 29, Anion Gap 7.6, BUN 10 D, Creatinine 0.60, Estimated Creat Clear 157, Estimated GFR 105, Est GFR ( Amer) 127, Glucose 124 H, Calcium 9.1, Total Bilirubin 0.4, AST 40 H, ALT 45, Alkaline Phosphatase 79, Total Protein 6.5, Albumin 3.7, Globulin 2.8, Albumin/Globulin Ratio 1.3 12/07/23 05:27: WBC 9.2, RBC 3.96 L, Hgb 12.5, Hct 38.8, MCV 98.0, MCH 31.7 H, MCHC 32.3, RDW 14.2, Plt Count 268, MPV 10.3, Neut % (Auto) 59.2, Lymph % (Auto) 28.8, Limestone % (Auto) 7.4, Eos % (Auto) 3.8, Baso % (Auto) 0.9, Neut # (Auto) 5.4, Lymph # (Auto) 2.6, Limestone # (Auto) 0.7, Eos # (Auto) 0.4, Baso # (Auto) 0.1, Sodium 139, Potassium 3.5, Chloride 107, Carbon Dioxide 28, Anion Gap 7.5, BUN 5 L D, Creatinine 0.60, Estimated Creat Clear 111, Estimated GFR 105, Est GFR ( Amer) 127, Glucose 117 H, Calcium 9.0, Total Bilirubin 0.3, AST 38 H, ALT 42, Alkaline Phosphatase 71, Total Protein 6.2 L, Albumin 3.4 L, Globulin 2.8, Albumin/Globulin Ratio 1.2 I & O for Last 24 hours: Intake & Output 12/04/23 12/05/23 12/06/23 12/07/23 23:59 23:59 23:59 23:59 Intake Total 480 / 720 1073 / 1073 2191 / 2191 1054 / 1054 Output Total 0 / 0 0 / 0 0 / 0 0 / 0 Balance 480 / 720 1073 / 1073 2191 / 2191 1054 / 1054 Weight 91.626 kg 91.342 kg 91.943 kg 64.637 kg Constitutional Constitutional: no acute distress, average body habitus and cooperative *Routine HEENT Exam Head: Present normocephalic Eye: Present EOMI and PERRL ENT: Present mucous membranes moist *Routine Neck Exam Neck: Present supple; Absent lymphadenopathy *Routine Respiratory Exam Respiratory: Present CTA bilaterally; Absent rhonchi, wheezes or crackles *Routine Cardiovascular Exam Cardiovascular: Present RRR *Routine Abdominal Exam Abdominal: Present soft, normoactive bowel sounds and surgical scars; Absent tenderness *Routine Rectal Exam Patient deferred: visual exam *Routine Exam Patient deferred: external exam *Routine Extremities Exam Extremities: Absent cyanosis, clubbing or edema *Routine Skin Exam Skin: Present warm; Absent rash *Routine Neurological Exam Neurological: Present alert, oriented X3 and moving all extremities; Absent altered mental status Routine Psychiatric Exam Psychiatric: Present normal affect Results Data Completed and Pending Labs on day of discharge: Labs from last 24 hours 12/07/23 12/06/23 05:27 06:20 WBC 9.2 RBC 3.96 L Hgb 12.5 Hct 38.8 MCV 98.0 MCH 31.7 H MCHC 32.3 RDW 14.2 Plt Count 268 MPV 10.3 Neut % (Auto) 59.2 Lymph % (Auto) 28.8 Limestone % (Auto) 7.4 Eos % (Auto) 3.8 Baso % (Auto) 0.9 Neut # (Auto) 5.4 Lymph # (Auto) 2.6 Limestone # (Auto) 0.7 Eos # (Auto) 0.4 Baso # (Auto) 0.1 Sodium 139 138 Potassium 3.5 3.6 Chloride 107 105 Carbon Dioxide 28 29 Anion Gap 7.5 7.6 BUN 5 L D 10 D Creatinine 0.60 0.60 Estimated Creat Clear 111 157 Estimated GFR 105 105 Est GFR ( Amer) 127 127 Glucose 117 H 124 H Calcium 9.0 9.1 Total Bilirubin 0.3 0.4 AST 38 H 40 H ALT 42 45 Alkaline Phosphatase 71 79 Total Protein 6.2 L 6.5 Albumin 3.4 L 3.7 Globulin 2.8 2.8 Albumin/Globulin Ratio 1.2 1.3 DS: Diagnosis Discharge Diagnosis (1) SBO (small bowel obstruction): Status: Acute Code(s): K56.609 - Unspecified intestinal obstruction, unspecified as to partial versus complete obstruction (2) VERÓNICA (obstructive sleep apnea): Status: Acute Code(s): G47.33 - Obstructive sleep apnea (adult) (pediatric) (3) Obesity, Class II, BMI 35-39.9: Status: Acute Code(s): E66.9 - Obesity, unspecified (4) Essential hypertension: Status: Acute Code(s): I10 - Essential (primary) hypertension Meds Home Medications and Allergies Home Medications Medication Instructions Recorded Confirmed Type amlodipine 5 mg tablet 5 mg PO DAILY #30 tabs 09/29/23 11/29/23 Rx azelastine 137 mcg (0.1 %) nasal 1 spray intranasal BID #30 mL 10/15/23 11/29/23 Rx spray aerosol New Prescriptions to Start Prescriptions: Allergies Allergy/AdvReac Type Severity Reaction Status Date / Time lisinopril AdvReac Mild Cough Verified 11/29/23 18:51 Discharge Plan Disposition Patient Disposition: Home, Self-Care Condition: Fair Discharge Order Discharge Orders: Discharge Order (Routine); Ordered 12/07/23 Ordered By: Brando Hamilton Follow up Plan Follow up with: Christiano Coleman MD [Staff Physician] - 12/22/23 9:15 am Diann Robins PA [Primary Care Provider] - 12/14/23 10:00 am Prescriptions/Medication Reconciliation: Continued amlodipine 5 mg tablet 5 mg PO DAILY Qty: 30 2RF azelastine 137 mcg (0.1 %) aerosol,spray 1 spray intranasal BID Qty: 30 3RF Rx Instructions: administer into each nostril Discontinued semaglutide (weight loss) 0.25 mg/0.5 mL Pen Injector 0.25 mg SQ WEEKLY Rx Instructions: administer weeks 1 through 4 of therapy Problem Reconciliation Problems Reviewed?: Yes Patient Discharge Instructions ACTIVITY: Continue current activity DIET: continue same diet and advance to your usual diet Stand Alone Forms: [facility] Work Release Patient Instructions: DI for Small Bowel Obstruction Providers Primary Care Provider: Diann Robins Provider: Edelmira Amador Attending Provider: Edelmira Amador
[2023-12-07 08:00] VITALS: BP 123/74; PULSE 64; RESP 16; TEMP 36.7; O2SAT 98
[2023-12-07] MEDS: D5W/0.45% NaCl w/20mEq KCL 1,000 ML 125 ML IV (08:10)
[2023-12-07] MEDS: AMLODIPINE 5MG TABLET 5 MG PO (09:21)
[2023-12-07] MEDS: SIMETHICONE 80MG CHEWABLE TABLET 160 MG PO ×2 (09:21→13:20)
--- NOTE | 2023-12-09 14:34 | CARE MANAGER ---
Called and spoke to patient regarding recent discharge. Patient was aware of scheduled f/u appts and had no questions/concerns at time of call.
== END 2023-12-07 14:53 | disposition home or self-care (01) | DRG 390 ==
LOC: ER 13:17 → 2ND 18:35
PROVIDERS: Internal Medicine Adolescent Medicine; Admitting Provider Internal Medicine; Emergency Provider Emergency Medicine; PCP Student in an Organized Health Care Education/Training Program; Visit Provider Internal Medicine
DX: K56.609 Unspecified intestinal obstruction, unspecified as to partial versus complete obstruction (principal); Z85.820 Personal history of malignant melanoma of skin; Z87.891 Personal history of nicotine dependence; G47.33 Obstructive sleep apnea (adult) (pediatric); E66.9 Obesity, unspecified; I10 Essential (primary) hypertension; E16.2 Hypoglycemia, unspecified; Z68.26 Body mass index [BMI] 26.0-26.9, adult
CPT/HCPCS: 36415; 74018; 74021; 74177; 74250; 80048; 80053; 81001; 82962; 83690; 83735; 85025; 99291; J2405; Q9967

== ENCOUNTER 2024-02-18 14:30 | Outpatient (CLI) | payer BC, SELFPAY ==
[2024-02-18 18:34] LABS: Basophils # 0.1 K/mm3 (0-0.2); Basophils % 0.9 % (0.1-2.0); Eosinophils # 0.8 K/mm3 (0.0-0.4); Hematocrit 43.4 % (37.0-47.0); Lymphocytes # 0.9 K/mm3 (0.7-4.5); Lymphocytes % 7.9 % (10-50); Mean Corpuscular HGB Conc 32.4 g/dL (31.8-35.4); Mean Corpuscular Hemoglobin 31.8 pg (27.0-31.2); Mean Corpuscular Volume 98.3 fl (81-99); Mean Platelet Volume 9.7 fl (7.4-10.4); Monocytes # 0.8 K/mm3 (0.1-1.0); Monocytes % 7.1 % (1.7-9.3); Neutrophils # 8.5 K/mm3 (1.8-7.8); Neutrophils % 77.1 % (37.0-80.0); Platelet Count 300 K/mm3 (142-424); Red Blood Count 4.41 M/mm3 (4.20-5.40); Red Cell Distribution Width 14.1 % (11.5-17.5)
[2024-02-18 19:06] LABS: Chloride 102 mmol/L (98-107); Potassium 4.3 mmoL/L (3.5-5.1); Sodium 136 mmol/L (136-145)
[2024-02-18 19:09] LABS: Alanine Aminotransferase 29 U/L (12-78); Albumin Level 4.3 g/dl (3.5-5.0); Albumin/Globulin Ratio 1.3 (1.1-1.8); Alkaline Phosphatase 94 U/L (38-126); Anion Gap 14.3 mEq/L (5-15); Aspartate Amino Transferase 31 U/L (14-36); Bilirubin,Total 0.2 mg/dl (0.2-1.3); Blood Urea Nitrogen 13 mg/dl (7-17); Calcium 9.6 mg/dl (8.4-10.2); Carbon Dioxide 24 mmol/L (22.0-30.0); Cholesterol 238 mg/dl (140-200); Estimated Glomerular Filt Rate 75 ml/min (>60); GFR (African American) 90 ML/MIN (>60); Globulin 3.4 g/dL (1.3-3.2); Glucose 119 mg/dl (74-100); Total Protein,Serum 7.7 g/dl (6.3-8.2); Triglycerides 131 mg/dl (30-150); VLDL Cholesterol 26 mg/dL (0-40)
[2024-02-18 19:10] LABS: HDL Cholesterol 59 mg/dl (40-60)
[2024-02-18 19:21] LABS: Direct LDL Cholesterol 127.57 mg/dL (100-129)
[2024-02-18 19:39] LABS: Thyroid Stimulating Hormone 1.03 uIU/mL (0.465-4.68)
[2024-02-18 19:44] LABS: Hemoglobin A1C 5.7 % (4.0-6.0)
== END 2024-02-18 23:59 | disposition home or self-care (01) ==
LOC: LAB.DROPOF 02-19 07:31
PROVIDERS: PCP Student in an Organized Health Care Education/Training Program; Visit Provider Student in an Organized Health Care Education/Training Program
DX: R05.9 Cough, unspecified (principal); R53.83 Other fatigue; I10 Essential (primary) hypertension; Z13.21 Encounter for screening for nutritional disorder; Z13.29 Encounter for screening for other suspected endocrine disorder; Z68.36 Body mass index [BMI] 36.0-36.9, adult; E66.9 Obesity, unspecified; Z87.891 Personal history of nicotine dependence
CPT/HCPCS: 80050; 80053; 80061; 82306; 83036; 84443; 85025; 87635

== ENCOUNTER 2024-03-03 09:50 | Outpatient (CLI) | payer BC, SELFPAY ==
--- NOTE | 2024-03-03 09:55 | MM_ITS ---
PROCEDURE INFORMATION: Exam: MG Bilateral Screening 3D Mammography Exam date and time: 03/03/2024 9:46 AM Age: 54 years old Clinical indication: Screening examination TECHNIQUE: Imaging protocol: Bilateral Screening tomosynthesis and 2D mammography including computer-aided detection (CAD) when performed. COMPARISON: No relevant prior studies available. Baseline FINDINGS: MAMMOGRAPHY: Breast composition: There are scattered areas of fibroglandular density. Mass: None. Architectural distortion: None. Calcifications: No suspicious calcifications. Asymmetric density: None. Skin thickening: None. Axillary adenopathy: None. IMPRESSION: No mammographic evidence of malignancy. Annual screening is recommended unless otherwise clinically indicated. ASSESSMENT: BI-RADS Category 1: Negative
== END 2024-03-03 23:59 | disposition home or self-care (01) ==
LOC: RAD 09:50
PROVIDERS: PCP Student in an Organized Health Care Education/Training Program; Visit Provider Student in an Organized Health Care Education/Training Program
DX: Z12.31 Encounter for screening mammogram for malignant neoplasm of breast (principal)
CPT/HCPCS: 77063; 77067

== ENCOUNTER 2024-05-11 11:58 | Outpatient (CLI) | payer BC, SELFPAY ==
--- NOTE | 2024-05-11 12:02 | XR_ITS ---
FINAL REPORT CLINICAL HISTORY: back pain COMPARISON: None FINDINGS: THORACIC SPINE: AP, lateral, and swimmer's views of the thoracic spine were obtained. There is no prior exam for comparison. There is no acute fracture or malalignment. Vertebral body height is preserved. Paraspinal soft tissues are within normal limits. Mild to moderate anterior osteophytes are present in the mid thoracic spine. IMPRESSION: No acute bony abnormality identified. Mild to moderate anterior osteophytes in the mid thoracic spine. Reviewed, Interpreted and Dictated by Brad Phillip MD Transcribed by Kayla Hutchison Authenticated and [facility]
--- NOTE | 2024-05-11 12:02 | XR_ITS ---
FINAL REPORT CLINICAL HISTORY: back pain COMPARISON: None FINDINGS: LUMBAR SPINE: AP and lateral views of the lumbar spine were obtained. There is no prior exam for comparison. There is no acute fracture. There is grade 2 spondylolisthesis of L5 on S1. There is prominent facet sclerosis in the lower lumbar spine, and there are probable pars defects at the L5 level. Vertebral body height is preserved. There is loss of disc space height at the L5-S1 level as well. No acute paraspinal abnormality. There is a large bridging osteophyte on the left side at the L2-3 level. IMPRESSION: No acute bony abnormality identified. Grade 2 spondylolisthesis of L5 on S1 with prominent facet sclerosis in the lower lumbar spine and probable pars defects at the L5 level. Reviewed, Interpreted and Dictated by Brad Phillip MD Transcribed by Kayla Hutchison Authenticated and [facility]
== END 2024-05-11 23:59 | disposition home or self-care (01) ==
LOC: RAD 11:59
PROVIDERS: PCP Student in an Organized Health Care Education/Training Program; Visit Provider Student in an Organized Health Care Education/Training Program
DX: M25.78 Osteophyte, vertebrae (principal); M43.16 Spondylolisthesis, lumbar region; M54.9 Dorsalgia, unspecified
CPT/HCPCS: 72072; 72100

== ENCOUNTER 2024-06-02 15:09 | Outpatient (CLI) | payer BC, SELFPAY ==
--- NOTE | 2024-06-02 15:10 | MR_ITS ---
FINAL REPORT CLINICAL HISTORY: LBP, spondylolisthesis, facet sclerosis, pars defe FINDINGS: Multiplanar MR imaging of the lumbar spine was performed without contrast. On the sagittal T2-weighted images, decreased signal is seen at L5-S1 where there is grade 1-2 spondylolisthesis with probable underlying pars defects. The vertebral alignment is normal. There is no evidence of fracture. No bony mass is identified. The conus is seen at approximately the L1 level and has an unremarkable appearance. L1-2: There is no significant canal stenosis or neural foraminal narrowing. L2-3: There is no significant canal stenosis or neural foraminal narrowing. L3-4: There is no significant canal stenosis or neural foraminal narrowing. L4-5: Mild diffuse disc bulge with mild bilateral neuroforaminal narrowing. L5-S1: Moderate disc bulge with bilateral facet hypertrophy. There is high-grade right and moderate to high-grade left neuroforaminal narrowing. IMPRESSION: Grade 1-2 spondylolisthesis of L5 on S1 with probable underlying pars defects and moderate to high-grade bilateral neuroforaminal narrowing. Reviewed, Interpreted and Dictated by Brad Phillip MD Transcribed by Hyun Boggs Authenticated and . [facility]
== END 2024-06-02 23:59 | disposition home or self-care (01) ==
LOC: RAD 15:10
PROVIDERS: PCP Student in an Organized Health Care Education/Training Program; Visit Provider Student in an Organized Health Care Education/Training Program
DX: M43.17 Spondylolisthesis, lumbosacral region (principal); M47.819 Spondylosis without myelopathy or radiculopathy, site unspecified; M54.50 Low back pain, unspecified; R93.7 Abnormal findings on diagnostic imaging of other parts of musculoskeletal system
CPT/HCPCS: 72148

== ENCOUNTER 2024-07-27 10:46 | Outpatient (CLI) | payer BC, SELFPAY ==
--- NOTE | 2024-07-27 10:47 | FL_ITS ---
FINAL REPORT CLINICAL HISTORY: ibs with constipation, SBO 195.03dap 2.17ft FINDINGS: SMALL BOWEL FOLLOW THROUGH HISTORY: History of small bowel obstruction, constipation. COMPARISON: Previous small bowel series and CT abdomen and pelvis performed in November 2023. PROCEDURE: The patient ingested barium. Spot and overhead films were obtained. A total of 11 images were saved. FINDINGS: The scout leaser film is remarkable for surgical clips in the right upper quadrant and in the pelvis. There is suture material in the region of the cecum. Ingested contrast reaches the colon in less than 15 minutes. There is no evidence of small bowel obstruction. The mucosal fold pattern of the small bowel is normal. Spot images of the terminal ileum are unremarkable. The terminal ileum joins with the cecum inferiorly. FLUOROSCOPY TIME: 2 minutes 17 seconds RADIATION EXPOSURE IN DAP: 195.03 uGym2 IMPRESSION: Postoperative changes. Otherwise, normal small bowel follow-through. Reviewed, Interpreted and Dictated by Christiano Puente III, MD Transcribed by Nathalia Horne PA-C Authenticated and [facility]
[2024-07-27] MEDS: BARIUM SULFATE(LIQUID E-Z-PAQUE);355ML BOTTLE 355 ML PO (11:31)
== END 2024-07-27 23:59 | disposition home or self-care (01) ==
PROVIDERS: PCP Student in an Organized Health Care Education/Training Program; Visit Provider Nurse Practitioner Family
DX: K58.1 Irritable bowel syndrome with constipation (principal); K56.609 Unspecified intestinal obstruction, unspecified as to partial versus complete obstruction
CPT/HCPCS: 74250

== ENCOUNTER 2024-08-26 13:27 | Day surgery (SDC) | payer BC, SELFPAY ==
[2024-08-26 13:28] VITALS: BP 166/97; PULSE 90; RESP 16; TEMP 36.8; O2SAT 100; BMI 36.6
--- NOTE | 2024-08-26 13:32 | ED_ITS ---
Discharge Plan Disposition Patient Disposition: Still a Patient Condition: Serious Clinical Impressions Clinical Impression: Esophageal obstruction due to food impaction Discharge ED Provider: Juan Parker General Adult HPI <GEREMIAS Moser - Last Filed: 08/26/24 14:15> General Chief complaint: Skin/Abscess/Foreign Body Stated complaint: feels like foreign object stuck down in chest area Time Seen by Provider: 08/26/24 13:32 History of Present Illness HPI narrative: Patient presents for evaluation of dysphagia. Patient states that she was eating a piece of steak last night and felt like it got stuck. She has had previous episodes of that usually only with meat but she reports that she usually can drink soda vomit up the steak without difficulty. However that has not been the case today. She has been intolerant even her of her secretions today she has not been able to take anything by mouth. She denies any fever chills hemoptysis hematochezia hematemesis. Related Data Home Medications ?Medication ?Instructions ?Recorded ?Confirmed ibuprofen 600 mg tablet (IBU) 600 mg PO TID 05/10/24 06/27/24 albuterol sulfate 90 mcg/actuation 1 inh inhalation QID PRN 06/27/24 aerosol inhaler (ProAir HFA) azelastine 137 mcg (0.1 %) nasal 1 spray intranasal BID PRN 06/27/24 spray hydroxyzine HCl 50 mg tablet 50 mg PO HS PRN 06/27/24 Previous Rx's ?Medication ?Instructions ?Recorded cyclobenzaprine 5 mg tablet 5 mg PO TID PRN muscle spasm #30 05/10/24 tabs amlodipine 5 mg tablet 5 mg PO DAILY #90 tabs 06/13/24 Allergies Allergy/AdvReac Type Severity Reaction Status Date / Time lisinopril AdvReac Mild Cough Verified 06/27/24 10:14 PFSH <GEREMIAS Moser - Last Filed: 08/26/24 14:15> [facility] Disclaimer: The information contained in this section may have been updated after the patient was seen, as this information can be updated by other users. Medical History VERÓNICA (obstructive sleep apnea) SBO (small bowel obstruction) Sinusitis Cryptic tonsil Goiter Hypertension Melanoma Surgical History History of intestinal surgery H/O endoscopic sinus surgery H/O: hysterectomy H/O section Hx of appendectomy History of total left knee replacement Family History Mother Hypertension Father Hypertension Cancer Social History Smoking Status: Never smoker alcohol intake: never substance use type: denies use current occupational status: employed Travel in the last 8 weeks: None lives independently: Yes marital status: Have you lived/traveled outside [place] in past 30 days?: No Contact w/someone who lives/traveled outside US past 30 days?: No Exposure to someone with infectious disease in past 14 days?: No Do you have a fever (greater than 100.4 F or 38 C)?: No Have you tested positive for COVID-19: No Exposed to someone with COVID-19 in past 14 days?: No Do you have a sore throat?: No Do you have a cough?: No Do you have any weakness?: No Do you have any diarrhea?: No Are you experiencing any unusual bleeding?: No Do you have any muscle aches/pain?: No Do you have any abdominal pain?: No Are you experiencing loss of taste or smell?: No Other Medical History Have you received the Flu Vaccine for this season: No Have you received the Pneumonia Vaccine: No <GEREMIAS Moser - Last Filed: 08/26/24 14:15> ROS Obtained: Yes Systems reviewed as appropriate & no additional complaints except as documented Physical Exam <GEREMIAS Moser - Last Filed: 08/26/24 14:15> General General appearance: alert and in no apparent distress Respiratory Respiratory exam: Present normal lung sounds bilaterally Cardiovascular Cardiovascular exam: Present regular rate Neurological Exam Neurological exam: Present alert and oriented X3 Medical Decision Making <GEREMIAS Moser - Last Filed: 08/26/24 14:15> Medical Records Medical records reviewed: Yes I reviewed the patient's medical records. Screening: Per USPSTF and CDC recommendations, given the prevalence of disease in our region, it is our hospital?s policy to screen for HIV and viral Hepatitis for all patients aged 18 and over and those with ongoing risk factors. Jonh Inquiry Pt receiving controlled substance: No Vital Signs: 08/26/24 13:28 08/26/24 13:59 Temperature 98.3 F 98.3 F Temperature Source Oral Pulse Rate 93 H Pulse Rate [Left Radial] 90 Respiratory Rate 16 14 Blood Pressure 166/97 H Blood Pressure [Right Arm] 166/97 H Blood Pressure Mean [Right Arm] 120 02 Sat by Pulse Oximetry 100 Oxygen Delivery Method Room Air Orders (Tests/Meds): ED MEDICATIONS Generic Name Dose Route Start Last Admin Trade Name Freq PRN Reason Stop Dose Admin Sodium Chloride 10 ml 08/26/24 14:00 Sodium Chloride 0.9% 10ml Flush Syringe IV 09/25/24 13:59 NEEDED PRN Maintain IV Site ORDERS Category Date Time Status HIV Combo Stat Lab 08/26/24 13:50 Received Hep C Ab with Reflex to RNA Stat Lab 08/26/24 13:50 Received Medical Decision Narrative: In summary patient is a 54-year-old female who presents to the emergency department for evaluation of dysphagia. Patient is hemodynamically stable upon arrival, afebrile. Physical exam is remarkable for a well-nourished well- developed 54-year-old female who is apparently no acute distress. Patient has normal breath sounds normal heart sounds no epigastric tenderness to palpation.. Differential diagnosis includes food impaction versus esophagitis. Initial workup will be conducted with p.o. challenge. Initial interventions include Zofran. Initial workup performed by me and patient was unable to swallow even a sip of water and immediately had retching and emesis.. Given this I had interactive discussion with Dr. Coleman of general surgery regarding patient management and she will be taken to the endoscopy suite for further evaluation and care. <Juan Parker MD - Last Filed: 08/26/24 15:42> Vital Signs: 08/26/24 13:28 08/26/24 13:59 Temperature 98.3 F 98.3 F Temperature Source Oral Pulse Rate 93 H Pulse Rate [Left Radial] 90 Respiratory Rate 16 14 Blood Pressure 166/97 H Blood Pressure [Right Arm] 166/97 H Blood Pressure Mean [Right Arm] 120 02 Sat by Pulse Oximetry 100 Oxygen Delivery Method Room Air Orders (Tests/Meds): ED MEDICATIONS Generic Name Dose Route Start Last Admin Trade Name Jose Daniel PRN Reason Stop Dose Admin Sodium Chloride 10 ml 08/26/24 14:00 Sodium Chloride 0.9% 10ml Flush Syringe IV 09/25/24 13:59 NEEDED PRN Maintain IV Site ORDERS Category Date Time Status HIV Combo Stat Lab 08/26/24 13:50 Received Hep C Ab with Reflex to RNA Stat Lab 08/26/24 13:50 Received Medical Decision Narrative: In summary patient is a 54-year-old female who presents to the emergency department for evaluation of dysphagia. Patient is hemodynamically stable upon arrival, afebrile. Physical exam is remarkable for a well-nourished well- developed 54-year-old female who is apparently no acute distress. Patient has normal breath sounds normal heart sounds no epigastric tenderness to palpation.. Differential diagnosis includes food impaction versus esophagitis. Initial workup will be conducted with p.o. challenge. Initial interventions include Zofran. Initial workup performed by me and patient was unable to swallow even a sip of water and immediately had retching and emesis.. Given this I had interactive discussion with Dr. Coleman of general surgery regarding patient management and she will be taken to the endoscopy suite for further evaluation and care. I was consulted by the DEBRA, and we discussed the complexity of the problems being addressed. I approve the treatment and management plan for this patient's care in the emergency department, thus performing a substantive portion of the medical decision making. Juan Parker MD Critical Care <GEREMIAS Moser - Last Filed: 08/26/24 14:15> Critical Care Time Critical Care Time: No
--- NOTE | 2024-08-26 13:47 | PC.NURSE ---
DR SOLIMAN AT BEDSIDE
--- NOTE | 2024-08-26 13:53 | EXP.SURG.CON ---
History of Present Illness *Admission Date: 08/26/24 *Reason for visit:: Food impaction *History of present illness: Patient is a 54-year-old female from [facility]. I had seen her as a consultation in November of this year for bowel obstruction. She has had some issues with symptoms of transient dysphagia with a sensation of food becoming temporarily stuck but ultimately passing. She states that she was eating steak yesterday evening on 08/25/2024 approximately 8:30 PM and had sensation of food bolus becoming stuck. It had never passed. She ultimately presented to the emergency department this afternoon on 08/26/2024 with symptoms of ongoing esophageal obstruction. Patient does not take any prescription antacids but does state that she takes Rolaids after eating most days. Patient has seen gastroenterology at this facility for symptoms of presumed IBS with constipation and bloating. [facility] Disclaimer: The information contained in this section may have been updated after the patient was seen, as this information can be updated by other users. Medical History VERÓNICA (obstructive sleep apnea) SBO (small bowel obstruction) Sinusitis Cryptic tonsil Goiter Hypertension Melanoma Surgical History History of intestinal surgery H/O endoscopic sinus surgery H/O: hysterectomy H/O section Hx of appendectomy History of total left knee replacement Family History Mother Hypertension Father Hypertension Cancer Social History Smoking Status: Never smoker alcohol intake: never substance use type: denies use current occupational status: employed Travel in the last 8 weeks: None lives independently: Yes marital status: Have you lived/traveled outside [place] in past 30 days?: No Contact w/someone who lives/traveled outside [place] past 30 days?: No Exposure to someone with infectious disease in past 14 days?: No Do you have a fever (greater than 100.4 F or 38 C)?: No Have you tested positive for COVID-19: No Exposed to someone with COVID-19 in past 14 days?: No Do you have a sore throat?: No Do you have a cough?: No Do you have any weakness?: No Do you have any diarrhea?: No Are you experiencing any unusual bleeding?: No Do you have any muscle aches/pain?: No Do you have any abdominal pain?: No Are you experiencing loss of taste or smell?: No Meds Home Medications and Allergies Home Medications ?Medication ?Instructions ?Recorded ?Confirmed ?Type cyclobenzaprine 5 mg tablet 5 mg PO TID PRN muscle spasm #30 05/10/24 06/27/24 Rx tabs ibuprofen 600 mg tablet (IBU) 600 mg PO TID 05/10/24 06/27/24 History amlodipine 5 mg tablet 5 mg PO DAILY #90 tabs 06/13/24 06/27/24 Rx albuterol sulfate 90 mcg/actuation 1 inh inhalation QID PRN 06/27/24 History aerosol inhaler (ProAir HFA) azelastine 137 mcg (0.1 %) nasal 1 spray intranasal BID PRN 06/27/24 History spray hydroxyzine HCl 50 mg tablet 50 mg PO HS PRN 06/27/24 History New Prescriptions to Start Prescriptions: Allergies Allergy/AdvReac Type Severity Reaction Status Date / Time lisinopril AdvReac Mild Cough Verified 06/27/24 10:14 Exam (Inpt) Vital signs and Labs for Last 24 Hours: Temp Pulse Resp BP Pulse Ox O2 Del Method 98.3 F 90 16 166/97 H 100 Room Air 08/26/24 13:28 08/26/24 13:28 08/26/24 13:28 08/26/24 13:28 08/26/24 13:28 08/26/24 13:28 I & O for Labs for Last 24 Hours: Intake & Output 08/24/24 08/25/24 08/26/24 08/27/24 11:59 11:59 11:59 11:59 Weight 200 lb Constitutional: mild distress Head: Present normocephalic Respiratory: Present CTA bilaterally GI: Present soft (female): Present deferred Assessment and Plan *Assessment and plan (1) Esophageal obstruction due to food impaction: Status: Acute Category: Medical Code(s): T18.128A - Food in esophagus causing other injury, initial encounter; [id number].[id number] - Food entering into or through a natural orifice, initial encounter Plan Plan to make arrangements for urgent upper endoscopy for esophageal obstruction secondary to food impaction.
[2024-08-26 13:59] VITALS: BP 166/97; PULSE 93; RESP 14; TEMP 36.8; O2SAT 98
--- NOTE | 2024-08-26 14:53 | P.PNANES_ITS ---
[facility] Disclaimer: The information contained in this section may have been updated after the patient was seen, as this information can be updated by other users. Medical History VERÓNICA (obstructive sleep apnea) SBO (small bowel obstruction) Sinusitis Cryptic tonsil Goiter Hypertension Melanoma Surgical History History of intestinal surgery H/O endoscopic sinus surgery H/O: hysterectomy H/O section Hx of appendectomy History of total left knee replacement Family History Mother Hypertension Father Hypertension Cancer Social History Smoking Status: Never smoker alcohol intake: never substance use type: denies use current occupational status: employed Travel in the last 8 weeks: None lives independently: Yes marital status: Have you lived/traveled outside [place] in past 30 days?: No Contact w/someone who lives/traveled outside [place] past 30 days?: No Exposure to someone with infectious disease in past 14 days?: No Do you have a fever (greater than 100.4 F or 38 C)?: No Have you tested positive for COVID-19: No Exposed to someone with COVID-19 in past 14 days?: No Do you have a sore throat?: No Do you have a cough?: No Do you have any weakness?: No Do you have any diarrhea?: No Are you experiencing any unusual bleeding?: No Do you have any muscle aches/pain?: No Do you have any abdominal pain?: No Are you experiencing loss of taste or smell?: No [facility] Anesthesia Checklist Patient Identification Patient Identification: Arm Band and Verbal (Name & ) Structural Data Admitted From: Home Planned Operative Procedure/s: EGD Consent for Planned Operative Procedure(s) Verified: Yes Verified Documents: Surgical Consent and History and Physical NPO Status Verified Time NPO: 00:00 Additional verifications Anesthesia Reactions: No Airway Assessment Mallampati Score:: Class II C-Spine Mobility Assessed: Yes TMJ Mobility Assessed: Yes Dentition: Good Dentition Neurological Assessment Level of Consciousness: Awake Hx Seizures: No Numbness or tingling in extremities: No Anesthesia Plan Anesthesia Risk discussed: Yes Anesthesia Plan: Verified ASA Class: III (E) Anesthesia Type: MAC
--- NOTE | 2024-08-26 14:56 | HMH.SCOPE ---
Procedure: Date: 08/26/24 Patient Date of :: 1970 Procedure Performed:: Esophagogastroduodenoscopy with retrieval of food impaction Indications:: Patient is a 54-year-old female. She has had some occasional symptoms of self-limited dysphagia. She takes Rolaids regularly. She was eating steak in the evening of 08/25/2024 at approximately 8:30 PM at which time she developed symptoms of esophageal obstruction secondary to food impaction. She thought that the food bolus would pass as it has in the past. However symptoms persisted and she presented to the emergency department at [facility] in the afternoon of 08/26/2024. Surgical consultation was obtained. Arrangements were made for emergent EGD Performing Provider:: Christiano Coleman MD Referring Provider:: Diann Robins Sedation:: MAC sedation Procedure:: Patient history was obtained and appropriate physical examination was performed. Patient's medications and allergies were reviewed. Informed consent was obtained after explaining the benefits, alternatives, and risks of the procedure including, but not limited to, bleeding, perforation, missed lesions, and adverse reaction to anesthesia medications. Patient was transported to endoscopy procedure room. Patient was connected to monitoring devices. Throughout the procedure the patient's blood pressure, pulse, and oxygen saturations were monitored continuously. Patient identification and planned procedure were verified by the staff. Patient was positioned in lateral decubitus position. Olympus endoscope was inserted via the oropharynx. Esophagus was cannulated. There were salivary secretions filling the esophagus and these were immediately suctioned free. Endoscope was advanced and food bolus was encountered at approximately 30 cm from the incisors. Endoscope was withdrawn. The e- suction device was attached to the endoscope. Attempt was made at insertion however due to some pharyngeal spasming the endoscope with the e- suction device was unable to be advanced into the esophagus safely. Therefore the e- suction device was removed. Endoscope was reinserted. Beltrán net was used which resulted in successful grasping of some food material. Endoscope with Beltrán net was withdrawn. It was repeatedly reinserted and withdrawn with retrieval of portions of the food. There was visualization into what appeared to be hiatal hernia. Endoscope was then advanced into the stomach. Attempt was made at retroflexion which was unsuccessful to visualize the cardia. Endoscope was withdrawn to the distal esophagus and there were a couple of tiny portions of food remaining which were easily advanced into the gastric lumen using the endoscope. The gastroesophageal junction was approximately 35 cm from the incisors. There was some significant tissue inflammation and possibly appreciable Jimenez's esophagus versus neoplastic process at the gastroesophageal junction. Due to the acute inflammation and the emergent nature of this was not biopsied and dilatation was not performed. Stomach was desufflated and the endoscope was withdrawn. Findings:: Food impaction distal esophagus Possible Jimenez's esophagus versus inflammation versus neoplastic process at GE junction Recommendations:: Recommend follow-up outpatient upper endoscopy for evaluation, biopsies, and possible dilatation. Complications:: None immediately apparent Estimated blood obtained (mL): 2 Colonoscopy Component Colonoscopy Component Was a colonoscopy performed during today's procedure?: No
[2024-08-26 14:58] VITALS: BP 103/73; PULSE 86; RESP 18; TEMP 36.2; O2SAT 94
[2024-08-26 15:10] VITALS: BP 108/76; PULSE 76; RESP 18; O2SAT 94
[2024-08-26 15:20] VITALS: BP 110/77; PULSE 78; RESP 18; O2SAT 96
[2024-08-26 15:45] VITALS: BP 121/75; PULSE 73; RESP 18; O2SAT 97
[2024-08-26 16:52] LABS: HIV Combo NEGATIVE (Negative)
[2024-08-28 12:08] LABS: HCV Ab Non Reactive (Non Reactive)
== END 2024-08-26 15:45 | disposition home or self-care (01) ==
LOC: ER 13:53 → SDC 14:32
PROVIDERS: Emergency Provider Student in an Organized Health Care Education/Training Program; PCP Student in an Organized Health Care Education/Training Program; Visit Provider Surgery
PROC: 0DJ08ZZ Inspection of Upper Intestinal Tract, Via Natural or Artificial Opening Endoscopic (ICD-10-PCS; CPT 43247; principal; 2024-08-26 14:30)
DX: T18.128A Food in esophagus causing other injury, initial encounter (principal); W44.F3XA Food entering into or through a natural orifice, initial encounter
CPT/HCPCS: 43247; 86803; 87389; 99285; J2704

== ENCOUNTER 2024-10-13 07:32 | Outpatient (CLI) | payer BC, SELFPAY ==
--- NOTE | 2024-10-13 07:40 | CT_ITS ---
FINAL REPORT TECHNIQUE: Axial imaging of the lumbar spine was obtained without contrast. Sagittal and coronal reformatted images were also obtained and reviewed.This study was performed with techniques to keep radiation doses as low as reasonably achievable (ALARA). Individualized dose reduction techniques using automated exposure control or adjustment of mA and/or kV according to the patient's size were employed. CLINICAL HISTORY: LUMBAR SPONDYLOLISHESIS COMPARISON: None FINDINGS: CT LUMBAR SPINE W/O CONTRAST There is advanced disc space narrowing at L5-S1. There is grade 2 spondylolisthesis of L5 on S1. Bilateral pars defects also noted at the L5 level. L1-2: No evidence of significant central canal stenosis or neuroforaminal narrowing. L2-3: No evidence of significant central canal stenosis or neuroforaminal narrowing. L3-4: No evidence of significant central canal stenosis or neuroforaminal narrowing. L4-5: Mild diffuse disc bulge. Mild midline disc protrusion. Mild spinal canal compromise. L5-S1: Large disc bulge. High-grade bilateral neural foraminal narrowing. IMPRESSION: Multilevel degenerative change without acute bony abnormality. Reviewed, Interpreted and Dictated by Brad Phillip MD Transcribed by Poonam Vazquez Authenticated and [facility]
== END 2024-10-13 23:59 | disposition home or self-care (01) ==
PROVIDERS: PCP Student in an Organized Health Care Education/Training Program; Visit Provider Physician Assistant Surgical
DX: M43.16 Spondylolisthesis, lumbar region (principal)
CPT/HCPCS: 72131

== ENCOUNTER 2024-10-28 10:21 | Outpatient (CLI) | payer BC, SELFPAY ==
--- NOTE | 2024-10-28 10:28 | XR_ITS ---
FINAL REPORT TECHNIQUE: 5 views CLINICAL HISTORY: LUMBAR SPONDYLOLISTHESIS COMPARISON: 05/11/2024 FINDINGS: LUMBAR SPINE: 5 views of the lumbar spine were obtained. There is grade 2-3 spondylolisthesis of L5 on S1, also seen on the prior exam and stable in appearance. Underlying L5 pars defects are identified. No acute bony abnormality is present. IMPRESSION: Grade 2-3 spondylolisthesis L5 on S1, stable. Underlying L5 pars defects are noted. Reviewed, Interpreted and Dictated by Melvin Ramachandran MD Transcribed by Kayla Hutchison Authenticated and [facility]
== END 2024-10-28 23:59 | disposition home or self-care (01) ==
LOC: RAD 10:25
PROVIDERS: Visit Provider Physician Assistant Surgical
DX: M43.16 Spondylolisthesis, lumbar region (principal)
CPT/HCPCS: 72110

== ENCOUNTER 2025-05-02 13:41 | Outpatient (CLI) | payer BC, SELFPAY ==
--- OUTSIDE RECORDS SUMMARY | 2025-03-07 11:00 | XMS_ITS | Encounter Summary ---
Author Organization [facility] Address [address] [place] [address] Phone Care Team Providers Care Barrel Straightener Name Role Phone Pcp, None Primary Care Provider [phone] Encounter Details Date Type Department Care Team (Latest Contact Info) Description 03/07/2025 11:00 AM EDT Pre-Admission Testing [facility] [address] [facility] [place] [address] Brandon Eaton MD [address], [place] [phone] Spondylolisthesis of lumbar region Anesthesia Record Procedure Summary Procedure Name Responsible Anesthesiologist Anesthesia Start Time Anesthesia Stop Time L5-S1 ANTERIOR INTERBODY FUSION, (Spine) Ambika Mehta MD 03/23/25 0734 03/23/25 1012 Events Date Time Event Comment 03/23/2025 0714 0734 AN Start I have assessed the patient immediately prior to administering the anesthetic, and the patient is ready for anesthesia. Anesthesia start time began when I entered the OR and was personally present with the patient. 0734 AN Start Data 0737 An Induction 0739 An Intubation 0924 Quick Note During C-arm sc an patient apneic for longer than typical due to issues with nuvasive equipment reading. Scan stopped midway through so HYPO DIPPER came in to breath for patient. During that time rep states scan is going to reinitiate. HYPO DIPPER requested scan be paused but no pause initiated. HYPO DIPPER exposed to close range scan due to rep/gastroenterology technician no stopping scan. HYPO DIPPER stated the patient needed to breath before scan reinitiated because ventilation held for longer than usual. 1003 AN EXTUBATION 1006 AN Stop Data 1012 AN Stop Meds * Agents No agents on file. * Blood No blood administrations on file. Lines, Drains, and Airways Type Details Placement Removal Peripheral IV 03/23/25; 0609; Inse rted; No; 20 G; Right; Antecubital; Chlorhexidine; No; No; Tolerated well; Yes; LDA removed; Yes; Tolerated well; Bleeding controlled, Pressure applied, Band-aid applied 03/23/25 0609 by Padmini Mcdonald Registered Nurse 03/24/25 1246 by Ambika Harris, Registered Nurse ETT Mask ventilation:Pre-oxygenati on 100% FiO2, Mask ventilation easy; CO2 waveform:Yes; Breath sounds verified:Yes, Equal, Bilateral; ETT Type:Standard; ETT Size:7 mm; Cuffed:Cuffed; Direct Laryngoscopy attempts:1; Laryngoscope type:Battery Medics; Laryngoscope size:3; Grade view:II; Rapid sequence:No; Cricoid pressure applied:No; Procedure status:No trauma, Dentition as pre-op 03/23/25 0739 by Kate Cerda 03/23/25 1003 by Kate Cerda Peripheral IV 03/23/25; 0750; Inse rted, Accessed, Flushed, Assessed; 03/23/25; 20 G; Right; Wrist; Alcohol; No; No; Tolerated well; LDA removed; Yes; Tolerated well; Bleeding controlled, Pressure applied, Band-aid applied 03/23/25 0750 by Kate Cerda 03/24/25 1246 by Ambika Harris, Registered Nurse Incision 03/23/25; 0808; Asse ssed; No; Incision #1; Abdomen; Mid; 03/24/25; 1248; Incision still present 03/23/25 0808 by Virgie Luis Registered Nurse 03/24/25 1248 by Ambika Harris, Registered Nurse Mojica Catheter 03/23/25; 0819; Inse rted; No; Yes; 03/23/25; Mika Fields, SA; Straight-tip; 16 Fr.; Yes; LDA removed; Per MD order; Yes; Tolerated Well 03/23/25 0819 by Virgie Luis, Registered Nurse 03/23/25 1012 by Virgie Luis Registered Nurse Incision 03/23/25; 0939; Asse ssed; No; Incision #2; Back; Left; 03/24/25; 1249; Incision still present 03/23/25 0939 by Virgie Luis Registered Nurse 03/24/25 1249 by Ambika Harris Registered Nurse Incision 03/23/25; 0940; Asse ssed; No; Incision #3; Back; Right; 03/24/25; 1249; Incision still present 03/23/25 0940 by Virgie Luis Registered Nurse 03/24/25 1249 by Ambika Harris Registered Nurse Incision 03/23/25; 0940; Asse ssed; No; Incision #4; Back; Right, Lower; 03/24/25; 1249; Incision still present 03/23/25 0940 by Virgie Luis Registered Nurse 03/24/25 1249 by Ambika Harris Registered Nurse documented in this encounter Social History Tobacco Use Types Packs/Day Years Used Date Smoking Tobacco: Former Cigarettes Smokeless Tobacco: Never Alcohol Use Standard Drinks/Week Comments Not Currently 0 (1 standard drink = 0.6 oz pur e alcohol) Food Insecurities Answer Date Recorded Worried about running out of food Not on file 10/05/2023 Food Bought Not on file 10/05/2023 Housing/Utilities Answer Date Recorded Worried about losing home Not on file 2023 Stayed outside house Not on file 10/05/2023 Unable to get utilities Not on file 10/05/19 Interpersonal Safety Answer Date Record ed Feel physically or emotionally unsafe where curr ently live Not on file 10/05/2023 Harm by anyone Not on file 10/05/2023 Emotionally Harmed Not on file 10/05/2023 Transportation Answer Date Recorded Worried about transportation Not on file Utilities Answer Date Recorded Worried about losing home Not on file 2023 Stayed outside house Not on file 01/17/2024 Unable to get utilities Not on file 01/17/20 Comments No Sex and Gender Information Value Date Recorded Sex Assigned at Not on file Legal Sex Female 9:24 AM EST Gender Identity Not on file Sexual Orientation Not on file documented as of this encounter Last Filed Vital Signs Vital Sign Reading Time Taken Comments Blood Pressure 144/93 03/07/2025 11:15 AM EDT Pulse 85 03/07/2025 11:15 AM EDT Temperature - - Respiratory Rate 20 03/07/2025 11:15 AM EDT Oxygen Saturation 100% 03/07/2025 11:15 AM EDT Inhaled Oxygen Concentration - - Weight 84.4 kg (186 lb) 03/07/2025 11:15 AM EDT Height 157.5 cm (5' 2 ) 03/07/2025 11:15 AM EDT Body Mass Index 34.02 03/07/2025 11:15 AM EDT documented in this encounter Functional Status * Are you deaf or do you have serious difficulty hearing? Answer Date of Assessment Author No 03/07/2025 11:22 AM EDT Coretta Choi Registered Nurse * Are you blind or do you have serious difficulty seeing, even when wearing glasses? Answer Date of Assessment Author No 03/07/2025 11:22 AM Coretta Whitney Registered Nurse * Do you have serious difficulty walking or climbing stairs? (5 years old or older) Answer Date of Assessment Author No 03/07/2025 11:22 AM Coretta Whitney Registered Nurse * Do you have difficulty dressing or bathing? (5 years old or older) Answer Date of Assessment Author No 03/07/2025 11:22 AM Coretta Whitney Registered Nurse * Because of a physical, mental, or emotional condition, do you have difficulty doing errands alone such as visiting a doctor???s office or shopping? (15 years old or older) Answer Date of Assessment Author No 03/07/2025 11:22 AM Coretta Whitney Registered Nurse documented as of this encounter Mental Status * Because of a physical, mental, or emotional condition, do you have serious difficulty concentrating, remembering, or making decisions? (5 years old or older) Answer Entry Date Author No 03/07/2025 11:22 AM EDT Coretta Choi Registered Nurse documented in this encounter Patient Instructions * Discharge Instructions* Coretta Choi, Registered Nurse - 03/07/2025 11:13 AM EDT Pre Surgical Services Instructions Surgery Date: 03/23/2025. The surgeon's office will contact you regarding your date and time for surgery. Your arrival time will be determined by the surgeon's office. If you have not received any instructions from the surgeon's office in [facility] or by mail, please call the surgeon's office. Notify your surgeon's office as soon as possible if you develop any changes in your physical condition (flu-like symptoms, fever, respiratory congestions or new cough). Avoid activities that could cause skin problems. Any rashes, scrapes, scratches or skin changes at the surgery area should be reported to your surgeon as soon as possible. Eating and drinking instructions Stop all solids 8 hours prior to arrival time. You may have clear liquids - water, soda, pulp free juice, including Gatorade-like beverages, BLACK coffee and tea until 2 hours prior to arrival time (NO creamers or dairy of any type allowed). Reminder: NOTHING to eat or drink includes ice chips, chewing gum, hard candy, or mints. Do not sipwater while brushing your teeth. Bathing/shower instructions Refer to the bathing instruction sheet provided to you Shower with antibacterial soap the night before or day of surgery. Do not shave or remove hair at the surgical area. Medications instructions It is very important to review your current medication listed below and follow instructions for each medication listed. Pharmacy instructed patient to continue taking home medications as usual except for the following instructions given per P&T recommendations: FOLLOW doctor's instructions for anticoagulant(s): Aspirin-- hold 7 days prior to surgery HOLD prior to surgery: (Ex. Diet drugs, SGLT-2 inhibitors, GLP-1 agonists, herbal supplements) Ibuprofen and celebrex-- hold 7 days prior to surgery Hold all vitamins and supplements 14 days prior to surgery Continue to hold adipex HOLD on day of surgery only: (Ex. ACEI/ARB, diuretics, non-insulin injectables, K supplements) N/A ADJUST prior to surgery: (Ex. Basal insulin) N/A TAKE on the morning of surgery: amlodipine Patient also received these instructions in writing and verbalized their understanding. Thank you, ZEKE Additional important information about arrival, registration and day of procedure If you are going home the same day of your surgery, you must have a responsible adult available to drive you home. For patient safety, we will not allow any patient to leave without a responsible adult present. Your surgery may be cancelled if you do not have a responsible adult available. It is recommended that you have someone available for 24 hours after General or MAC anesthesia. STOP at the Registration Desk. You must have a picture ID, insurance card and any co-payment with you upon registering. Directions to the surgery unit will be provided. No smoking or vaping on the day of surgery, starting midnight before surgery. Do not apply any lotions, powders, perfumes, make-up, nail haitian or hair spray after bathing the night before and morning of surgery. We recommend that any valuables brought with you to the hospital be given to your family before going to surgery. These items include but are not limited to- jewelry/metal (piercings), eye glasses, dentures, hearing aids, cell phone, computer, luggage, assistive devices. It is important to have a family member or friend remain in the waiting room while you are in surgery to meet with the physician after your procedure is over. If you need to use the bathroom upon arrival, please ask if a sample is needed. Your privacy is important to the entire health care team. One of our team members will welcome you and escort you from our waiting room. Some of the information we request may be considered confidential or sensitive, therefore we will invite your family member/support person to join you after your initial assessment has been completed PLEASE BRING THE FOLLOWING items with you ON THE DAY OF SURGERY: Any education information you received so you can review items with your health care associate team physician's license or photo ID, insurance card, Medicare/Medicaid card Complete medication list, with the date and time they were last taken For your safety you may bring non-skid shoes to wear, no flip flops or sandals For discharge - loose fitting clothing to wear home and a pillow for comfort in the car Any items surgeon has instructed you to bring (sling, brace, cooler) Do not leave in car Any assistive devices you may need after your surgery (cane, walker, crutches) Personal toiletries, eyeglasses, contact lenses with solutions, hearing aids with batteries and cases Important telephone numbers including the number for the person taking you home Books, magazines, hobby, phone pot room supervisor if needed PARKING INSTRUCTIONS FOR DAY OF SURGERY Allow yourself at least 20 minutes to park and register. From the visitor garage off [address]. (Main entrance) Park on Top Floor of garage, Level E There are marked reserved spaces in the garage for surgery and endoscopy patients Enter the building by the white wall marked E Registration will check you in at the Endoscopy Mail Caller Desk Press Operator Printing parking is available at [facility]'s [facility] entrance from 6:00am - 6:00pm. Additional Comments: THIS LINK IS TO THE [facility]ERY EDUCATION VIDEO. [email or web address] If you have any questions regarding your surgery, you must contact your surgeon's office. If you have any questions concerning your visit today, you may call Pre Surgical Services at [phone] [facility](M-F 7:00 am-4:30 pm). We strive to make every hospital visit a well informed and satisfying experience. Our goal is to beexceptional in every way, making all efforts to be a 10 out of 10 for you. Please direct any concerns, suggestions or comments about this visit to our perioperative management team by calling Thank you for choosing [facility]. documented in this encounter Progress Notes * Zeke Slaughter, PharmD - 03/07/2025 11:00 AM EDT Pharmacy Pre Surgical Services Note: Patient is scheduled to have surgery on 03/23/25 and was seen in Pre Surgical Services on 03/07/2025. Pharmacy instructed patient to continue taking home medications as usual except for the following instructions given per P&T recommendations: FOLLOW doctor's instructions for anticoagulant(s): Aspirin-- hold 7 days prior to surgery HOLD prior to surgery: (Ex. Diet drugs, SGLT-2 inhibitors, GLP-1 agonists, herbal supplements) Ibuprofen and celebrex-- hold 7 days prior to surgery Hold all vitamins and supplements 14 days prior to surgery Continue to hold adipex HOLD on day of surgery only: (Ex. ACEI/ARB, diuretics, non-insulin injectables, K supplements) N/A ADJUST prior to surgery: (Ex. Basal insulin) N/A TAKE on the morning of surgery: amlodipine Patient also received these instructions in writing and verbalized their understanding. Thank you, ZEKE SLAUGHTER, PharmD 03/07/2025 documented in this encounter Plan of Treatment Not on file documented as of this encounter Procedures Procedure Name Priority Date/Time Associated Diagnosis Comments PROTIME & INR Routine 03/07/2025 11:30 AM EDT Spondylolisthesis of lumbar region PTT Routine 03/07/2025 11:30 AM EDT Spondylolisthesis of lumbar region BAMP (NA,K,CL,CO2,GLU,BU N,CREAT,CA) Routine 03/07/2025 11:30 AM EDT Spondylolisthesis of lumbar region CBC Routine 03/07/2025 11:30 AM EDT Spondylolisthesis of lumbar region P.A.T. TYPE & SCREEN Routine 03/07/2025 11:30 AM EDT Spondylolisthesis of lumbar region documented in this encounter Results * (ABNORMAL) BAMP (NA,K,CL,CO2,GLU,BUN,CREAT,CA) (03/07/2025 11:30 AM EDT) BLD UREA NITROGEN 16 8 - 26 mg/dL [facility] SODIUM 139 135 - 145 mmol/L [facility] POTASSIUM 3.4(L) 3.6 - 5.1 mmol/L [facility] CHLORIDE 102 98 - 111 mmol/L [facility] CO2 27 21 - 31 mmol/L [facility] GLUCOSE, RANDOM 119(H) 70 - 99 mg/dL [facility] CREATININE 0.73 0.60 - 1.20 mg/dL [facility] ANION GAP 10 4 - 16 mmol/L [facility] CALCIUM 9.4 8.5 - 10.4 mg/dL [facility] ESTIMATED GFR 97 >59 mL/min/1.7 3 m2 [facility] Comment: Estimated GFR was calculated using the CKD-EPI cr (2020) equation refit without race. The equation is recommended by the National Kid[employer] - [place] [employer] Nephrology Task Force. Tested at [facility] [address] [address] Whole Blood 03/07/2025 11:3 0 AM EDT 03/07/2025 11:37 AM EDT Brandon Eaton MD LAB BLOOD ORDERABLES Final Result Performing Organization Address City/[facility]/ZIP Co de Phone Number [facility] [address] [place] [address] CHEMISTRY HEMATOLOGY [address] [place] [id number] * PTT (03/07/2025 11:30 AM EDT) PTT 27.1 23.6 - 34.0 Seconds [facility]AT[facility] Comment:Tested at [facility] [address] [address] Whole Blood 03/07/2025 11:3 0 AM EDT 03/07/2025 11:37 AM EDT Brandon Eaton MD LAB BLOOD ORDERABLES Final Result [facility] [address] [place] [address] CHEMISTRY HEMATOLOGY [address] [place] [address] * (ABNORMAL) PROTIME & INR (03/07/2025 11:30 AM EDT) PROTIME 14.6(H) 11.7 - 14.2 Seconds [facility]EMATOLOG[facility] INR 1.1 0.8 - 1.2 [facility] Comment: INR THERAPEUTIC RANGES: ROUTINE ANTICOAGULATION: 2.0 TO 3.0 Tested at [facility] [address] [place] [address] Whole Blood 03/07/2025 11:3 0 AM EDT 03/07/2025 11:37 AM EDT Brandon Eaton MD LAB BLOOD ORDERABLES Final Result Performing Organization Address City/[facility]/ZIP Co de Phone Number [facility] [id number] [place] [phone] CHEMISTRY HEMATOLOGY [address] [place] [address] * CBC (03/07/2025 11:30 AM EDT) WBC 7.8 3.6 - 10.5 THOU/mcL [facility] RBC 4.41 3.80 - 5.20 MIL/mcL [facility] HEMOGLOBIN 13.7 12.0 - 15.2 g/dL [facility] HEMATOCRIT 41.5 36 - 46 % [facility] MCV 94.1 82 - 97 fL [facility] MCH 31.2 27 - 33 pg [facility]AT[facility] MCHC 33.1 32 - 36 g/dL [facility]AT[facility] RDW 13.9 12.3 - 17.0 % [facility]AT[facility] PLATELET 311 140 - 375 THOU/mcL [facility]AT[facility] MPV 9.3 7.0 - 11.5 fL [facility]ATOLOGY Comment:Tested at [facility] [address] [address] Whole Blood 03/07/2025 11:3 0 AM EDT 03/07/2025 11:37 AM EDT Brandon Eaton MD LAB BLOOD ORDERABLES Final Result Performing Organization Address City/[facility]/ZIP Co de Phone Number [facility] [address] [place] [address] [phone] CHEMISTRY HEMATOLOGY [address] [place] [phone] * P.A.T. TYPE & SCREEN (03/07/2025 11:30 AM EDT) EXPIRATION AT 23:59 03/26/2025,23 59 BLOOD BANK GSH EXPIRATION AT 23:59 Tested at [address] [address] BLOOD BANK GSH ABO/RH(D) O POSITIVE BLOOD BAN K GSH ANTIBODY SCREEN NEGATIVE BLOOD BANK GSH ANTIBODY SCREEN Tested at [facility] [address] [address] BLOOD BANK GSH Whole Blood 03/07/2025 11:3 0 AM EDT 03/07/2025 11:37 AM EDT us Brandon Eaton MD BLOOD BANK TEST ORDERABLES Final Result [facility] [address] [place] [address] BLOOD BANK GSH [address] [place] [id number] documented in this encounter Visit Diagnoses Diagnosis Spondylolisthesis of lumbar region Acquired spondylolisthesis documented in this encounter Care Teams Barrel Straightener Relationship Specialty Start Date End Date Pcp, MD Jennifer PCP - General Internal Medicine 10/17/13 03/22/25 documented as of this encounter
--- OUTSIDE RECORDS SUMMARY | 2025-03-23 05:09 | XMS_ITS | Encounter Summary ---
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 posterior longitudinal ligament. Once the disc was emptied I rasped and scraped the endplates to prepare them for fusion. I then tested the trial and the 8 mm trial fit well. I then prepared the 8 mm 15 degree lordotic 3D printed titanium graft and filled this with BMP allograft and Osteocell allograft. This was then tapped in so as to be appropriatelycountersunk as confirmed by lateral fluoroscopy. I then tapped through the herrera into the L5 and S1 endplates and then placed 22.5 mm screws through the herrera into the endplates under lateral fluoroscopy guidance with good purchae to the fully tightened and locked position. Guide was then removed. Final lateral and AP fluoroscopy was obtained confirming good placement of all hardware including the graft and plate and screws. Dr. Monsalve then performed the closure portion of the procedure. Once the abdomen was closed the patient was carefully turned prone onto a Juan table. Again all pressure points were adequately paddedand the patient was secured to the operating room table. The back was cleansed with alcohol and prepped and draped in the usual sterile fashion. The PSIS was localized on the right side and a small incision was made over that with 10 blade knife. Bovie electrocautery was used to dissect down to bone. Jamshidi needle was tapped into the iliac crest and 5cc of bone marrow aspirate was obtained. The image guidance array was then affixed to PSIS, and the patient was covered with sterile drapes. We then brought in the O-arm and obtained a CT scan for the purposes of stereotactic navigation. Drapes were then removed and incisions were plannedwith Stealth image guidance. A 10 blade knife was used to incise the skin and dermis. Bovie electrocautery was used to dissect through the subcutaneous tissue down to fascia. The fascia was split with Bovie. L5 and S1 transverse processes were decorticated with Midas fabi drill as well as L5-S1 facets bilaterally. I then placed pedicle screws at L5 and S1 bilaterally using MIS technique with stereotactic navigation. The navigated Midas Fabi drill was used to create a ship pilot hole and then a trajectory was saved on the screen. We then went straight to the screw, placing 6.5 x 50 mm screws at L5 bilaterally, and 7.5 x 45 mm screws bilaterally at S1. I then turned my attention to the decompression. On the left side, the minimally invasive retractorwas inserted into the retractor blades which were affixed to the screw shanks. The retractor was then opened craniocaudally, and a Tolbert dissector was then used to remove any muscle off the remaining lamina facet complex. A medial blade was then placed to provide medial retraction. Using a Midas Rexdrill I was able to drill away the inferior aspect of the L5 lamina up to the ligamentum flavum andthen carried the drilling curvilinearly out across the pars disarticulating the medial facet. I then used a Kerrison #3 punch to remove all ligament and soft tissue and bony edges, undercutting the spinous process to create a wide central decompression. I then carried the work out laterally removing the remaining facet complex, as well as the soft tissue, until the exiting L5 nerve root was fullydecompressed on the left side, thus completing the total laminectomy, facetectomy and foraminotomy on the left. Rods were placed through the screw towers bilaterally. Caps were placed. Caps were tightened down to the fully tightened and locked position. The adolfo herrera and towers and Stealth array was then removed. The patient was again covered with sterile drapes, and final AP and lateral fluoroscopy demonstrated excellent hardware placement. The wound was irrigated copiously with antibiotic solution with bacitracin irrigation. The posterolateral fusion was then performed with a mixture of DBM allograft,Osteocell allograft with bone marrow aspirate. This was placed in the posterolateral gutters bilaterally using a funnel. The wounds were then closed with 0-Vicryl suture to approximate the fascia followed by 2-0 Vicryl suture to close the subcutaneous tissue and dermis followed by 4-0 Monocryl running subcuticular stitch to close the skin. 0.5% marcaine/exparel was injected into the deep and subcutaneous tissues prior to final closure. DERMABOND was layered over the skin edges. All drapes were then removed. The patient was turned back to the hospital bed. She was awakened and taken to the Recovery Room in stable condition. All sponge, needle, and instrument counts were correct at the end of the case. I affirm in accordance with [facility] regulations that I was present for all critical portions of the case. George Zelaya MD * Operative Report - Breezy Monsalve MD - 03/23/2025 7:38 AM EDT Images from the original note were not included. Patient: Phillip Meraz Date of : 1970 Date of Procedure: 03/23/2025 PREPROCEDURE DIAGNOSES: L5-S1 spondylolisthesis L5-S1 foraminal stenosis Lumbar radiculopathy POSTPROCEDURE DIAGNOSES: Same PROCEDURE PERFORMED: Anterior retroperitoneal exposure of the L5-S1 disc space for an anterior lumbar interbody fusion 62 modifier. Golf Ball Winder surgeon for placement of interbody fusion hardware and allograft L5-S1 80 modifier Mobilization of great vessels VASCULAR SURGEON PROVIDING EXPOSURE: Breezy Monsalve M.D. SPINE SURGEON: George Zelaya MD ANESTHESIA: General endotracheal. ESTIMATED BLOOD LOSS: 10 mL INDICATIONS: The patient is a very 55 year old female who was seen and evaluated by Dr Zelaya for significant back pain and degenerative disc disease. Patient failed conservative measures and felt tim an appropriate candidate for anteroposterior fusion. I was asked to see the patient to provide the exposure of the above stated disc space. I saw the patient preoperatively. I discussed with the patient my portion of the procedure as well as the risks, benefits, alternatives. Patient understood the risks included but were not limited to significant arterial or venous bleeding requiring blood transfusion or that could even be fatal, arterial or venous thrombosis requiring further vascular surgery, thrombectomy or bypass, deep venous thrombosis, pulmonary embolism, injury to the small bowel,large bowel, ureter and lymphatics, lymphocele, lymphedema, temporary or permanent nerve injury or damage, retrograde ejaculation, for men pain or numbness in the left testicle or left thigh as well as the left testicle hanging lower and unable to contract up, bladder injury, seroma, lymph leak, hernia, wound or graft infection, hematoma, need for further vascular surgery. Patient understood these risks. All questions were answered and informed consent was obtained. DETAILS OF PROCEDURE: The patient was brought to the operating room, was placed in the supine position. General anesthesia was then induced. A Bermudez catheter was placed sterilely. Continuous pulse oximetry was placed and working on the left hallux. C-arm was then brought in from a lateral view. Fluoroscopy was performed and on the skin I marked the above stated disc space. The abdomen was then clipped, prepped and draped in the usual sterile fashion. A timeout was then performed to identify the correct patient, procedure and location. A vertical midline incision was then made through her prior incision scar over the above stated disc space. This was carried down the subcutaneous tissue, down through papito's fascia and to the anterior rectus sheath. The anterior rectus sheath was then opened longitudinally the left of midline. The rectus muscle was mobilized on the lateral edge and moved medially due to scarring in the midline from prior abdominal surgey. Small tributary vessels heading toward the inferior epigastric vesselswere transected once cauterized using bipolar electrocautery. The transversalis fascia layer was bluntly opened with with finger dissection and kitner using countertraction. The posterior rectus fascia was then left intact. I was then able to enter the retroperitoneum in the left lower quadrant. The peritoneal contents and ureter were able to be mobilized from the left to the patient's right sidewith the release of the semilunar line attachment. NuVa Retractor was then placed to facilitate exposure with a total of three blades. At no point during the utilization of the retractors was there undue pressure or stretch encountered. The genitofemoral nerve was identified and preserved allowing it to remain directly on the psoas muscle. The left ureter was also identified and retracted from left to right with the peritoneal packet with no manipulation of the structure and kept out of harm's way with the retractor blades. For the exposure of L5-S1 disc space the approach was in the crotch of the bifurcation of the inferior vena cava and the aorta. Of note, approximately 50% of the anterior aspect of the disc space of L5-S1 was covered by the aortoiliac vasculature structures. Standard electrocautery was not used in this area, only bipolar electrocautery and blunt and sharp dissection with a Kitner was performed. Care was taken to mobilize soft tissue off the inferior aspect of the left common iliac vein and retraction of this tissue from the left to right thus preserving its content. Included in this mobilization from the left to right was the hypogastric plexus of nerves lying directly on the symphysis pubis. The median sacral veins were taken down with bipolar electrocautery and the median sacral artery was double clipped and transected to allow the release of the inferior border of the left common iliac vein. This structure was then mobilized and released cephalad and towards the left of the L5-S1 disc space. The entire anterior surface of the L5-S1 disc space was then exposed. The maintenance of d isc space exposure was done utilizing the NuV retractor blades. A hand held mike and 160 mm blade was used to the left to help retract and protect the left common iliac vein and artery. A 140 mm blade was used to the right to retract and protect the right common iliac vein, artery, left ureter andviscera. A 120 mm blade was used cephalad to retract and protect the IVC bifurcation, aortic bifurcation, left ureter and viscera. Fluoroscopic images were acquired to confirm the appropriate disc level. Vascular mobilization and exposure of great vessels: For the exposure of the L5- S1 disc space level, the left iliac artery and vein complex was mobilized on the inferior border and rotated off the spine towards the left lateral aspect of the disc space. The median sacral veins were taken down utilizing bipolar electrocautery with excellent hemostasis. The median sacral artery was double clipped followed by bipolar electrocautery and transected with excellent hemostasis. The right iliac artery and vein complex required manipulation and mobilization towards the right. These maneuvers enabled the bifurcation of the inferior vena cava to be freely mobilized and under no tension. Pins were then placed in the above stated disc space. C-arm was then brought in fluoroscopy was performed in the AP and lateral position and confirmed these were the correct disc spaces. At this time, Dr. Zelaya entered and he will have a separate dictation for the discectomy and cage placement. During this time I was present and scrubbed for the entire surgery. I assisted the spine surgeon with the placement of the interbody fusion hardware and allograft at each level. I did applygentle retraction on the iliac vessels for exposure of the disk space and safe placement of the hardware. After the hardware was placed the wound was examined again and noted to be hemostatic. The retractor blades were individually removed confirming the maintenance of hemostasis and the integrity of vascular, urologic and visceral structures. The intra-abdominal sac with its contents was then ely james back in their natural position. There was noted to be no peritoneal defects. A sweep of the abdomen and pelvis with C-arm confirmed no retained foreign bodies. The anterior rectus sheath was then closed with running looped 0 PDS. The subcutaneous tissue and skin were then closed with 2-0 Vicryl, subcuticular 4-0 Monocryl and a dry sterile occlusive dressingwas applied. Urine in the bermudez catheter was noted to be clear with no blood. At the end of this portion of the procedure, all needles, instruments and sponge counts were correct. Urine in the bermudez catheter was clear. The patient tolerated this portion of the procedure well and was in stable condition. Mobilization of the great vessels: The coding rationale for utilization of 22 modifier code for this procedure is for the extensive mobilization and exposure of great vessels that was required. I estimate that I spent at least 40% of the total operative time performing extensive vascular mobilization of the distal aorta, iliac arteries, iliac veins and inferior vena cava and vena caval bifurcation. This procedure was necessary for the completion of the spinal fusion and was required to optimizepatient outcome and successful surgery. By performing the complete mobilization of the great vessels, midline orientation of the spinal devices implanted was obtained.. This note was generated in part or in whole with voice recognition software. Voice recognition is usually quite accurate but there are journeyman powerhouse operator errors that can and often occur. All attempts weremade to correct these errors. I apologize for any typographical errors that were not detected and corrected. * Pharmacy Communication - Zahira Nicole PharmD - 03/20/2025 2:56 PM EDT Pre-Op Vancomycin Prophylaxis Consult for Pharmacy: MRSA Colonization Risk Factors (per chart review and Care Everywhere): History of MRSA infection within the past 12 months: no Resident of [facility]: no Patient on Chronic Hemodialysis: no Previous hospitalization within 12 months (except if for prior joint replacement): no This patient has been reviewed for MRSA colonization risk. Based on the criteria below, pharmacy will discontinue the pre-op vancomycin order. Thanks! Zahira Nicole PharmD 03/20/2025 documented in this encounter Plan of Treatment Not on file documented as of this encounter Procedures Procedure Name Priority Date/Time Associated Diagnosis Comments CT LUMBAR SPINE WO CONTRAST Routine 03/23/2025 11:51 AM EDT FL OR XRAY FLUORO SUPPORT Routine 03/23/2025 10:00 AM EDT XR OR CT LUMBAR SPINE WO CONTRAST Routine 03/23/2025 9:54 AM EDT XR LUMBAR SPINE AP AND LATERAL Routine 03/23/2025 8:54 AM EDT FUSION SPINE POSTERIOR (PLIF) LUMBAR W/ INSTRUMENTS-MINIMA LLY INVASIVE 03/23/2025 7:30 AM EDT Spondylolisthesis , lumbar region Lumbar stenosis Special Needs JUAN TABLE, 6500 BED, CIOS W/ PULSE, EVOKES, SSEP, EMG, MEP, NUVASIVE, 23 HOUR OBSERVATION FUSION SPINE ANTERIOR (ALIF) W/WO INSTRUMENTS W ILIAC CREST BONE GRAFT 03/23/2025 7:30 AM EDT Spondylolisthesis , lumbar region Lumbar stenosis Special Needs JUAN TABLE, 6500 BED, CIOS W/ PULSE, EVOKES, SSEP, EMG, MEP, NUVASIVE, 23 HOUR OBSERVATION ABO/RH STAT 03/23/2025 6:00 AM EDT documented in this encounter Results * CT LUMBAR SPINE WO CONTRAST (03/23/2025 11:51 AM EDT) Anatomical Region Laterality Modality L-spine Computed Tomogra phy 03/23/2025 12:2 1 PM EDT Impressions 03/23/2025 12:24 PM EDT Status post recent L5-S1 AP fusion: * Hardware is appropriately positioned * Soft tissue changes compatible with surgical approach Narrative 03/23/2025 12:24 PM EDT HISTORY: Spinal fusion, lumbosacral, follow up COMPARISON: None TECHNIQUE: Multiplanar CT images of the lumbar spine NOTE: If there are questions about the content of this report, [facility] by calling [phone] FINDINGS: ALIGNMENT: No abnormal curvature BONES: Unremarkable. No aggressive osseous lesion or fracture SURGERY: L5-S1 AP fusion: * Hardware is appropriately positioned * There is soft tissue change compatible with the surgical approach DISC LEVELS: T12-L1: Unremarkable L1-2: Unremarkable L2-3: Unremarkable L3-4: Unremarkable L4-5: Unremarkable L5-S1: Postoperative level LUMBOSACRAL JUNCTION: Unremarkable SACRUM AND SI JOINTS: Unremarkable OTHER: None Procedure Note Manuel Barahona MD - 03/23/2025 HISTORY: Spinal fusion, lumbosacral, follow up COMPARISON: None TECHNIQUE: Multiplanar CT images of the lumbar spine NOTE: If there are questions about the content of this report, pleasecontact [facility] radiology by calling [phone] FINDINGS: ALIGNMENT: No abnormal curvature BONES: Unremarkable. No aggressive osseous lesion or fracture SURGERY: L5-S1 AP fusion: * Hardware is appropriately positioned * There is soft tissue change compatible with the surgical approach DISC LEVELS: T12-L1: Unremarkable L1-2: Unremarkable L2-3: Unremarkable L3-4: Unremarkable L4-5: Unremarkable L5-S1: Postoperative level LUMBOSACRAL JUNCTION: Unremarkable SACRUM AND SI JOINTS: Unremarkable OTHER: None IMPRESSION Status post recent L5-S1 AP fusion: * Hardware is appropriately positioned * Soft tissue changes compatible with surgical approach Sola Gomez PA-C CT Final Result * FL OR XRAY FLUORO SUPPORT (03/23/2025 10:00 AM EDT) Narrative Vane Sidhu ARRT - 03/23/2025 10:00 AM EDT This procedure has been auto-finalized, and is for reference only. As such, there is no formally dictated Radiant result report. If an Ambulatory procedure order, results may be included in either office, or H&P notes. us George Zelaya MD RAD Final Resul t * XR OR CT LUMBAR SPINE WO CONTRAST (03/23/2025 9:54 AM EDT) Anatomical Region Laterality Modality Chest Computed Radiogr aphy 03/23/2025 10:2 5 AM EDT Impressions 03/23/2025 10:25 AM EDT No unexpected findings on limited intraoperative CT scan Narrative 03/23/2025 10:25 AM EDT HISTORY: L5-S1 POST COMPARISON: None TECHNIQUE: Technically limited portable intraoperative CT scan FLUOROSCOPY TIME: 37 seconds NOTE: If there are questions about the content of this report, please contact [facility] radiology by calling [phone] FINDINGS: Spinal fixation system in grossly satisfactory position. No evidence of retroperitoneal hematoma. OTHER: None Procedure Note Hien Camara MD - 03/23/2025 HISTORY: L5-S1 POST COMPARISON: None TECHNIQUE: Technically limited portable intraoperative CT scan FLUOROSCOPY TIME: 37 seconds NOTE: If there are questions about the content of this report, pleasecontact [facility] radiology by calling [phone] FINDINGS: Spinal fixation system in grossly satisfactory position. No evidence ofretroperitoneal hematoma. OTHER: None IMPRESSION No unexpected findings on limited intraoperative CT scan us George Zelaya MD RAD Final Resul t * XR LUMBAR SPINE AP AND LATERAL (03/23/2025 8:54 AM EDT) Anatomical Region Laterality Modality Ankle Foot Toe Right, Femur Right, Knee Right, Tib Fib Right Digital Radiography 03/23/2025 9:11 AM EDT Impressions 03/23/2025 9:12 AM EDT Known L5 spondylolysis with grade 2 spondylolisthesis Status post recent discectomy and spacer placement L5-S1 Narrative 03/23/2025 9:12 AM EDT HISTORY: L5-S1 ANT COMPARISON: CT from 08/01/2021 NOTE: If there are questions about the content of this report, please contact [facility] radiology by calling [phone] FINDINGS: 8 intraoperative fluoroscopic images of the lumbosacral junction provided during discectomy. Anterolisthesis of L5 on S1 measures 17 mm Fluoroscopy time 30 seconds Procedure Note Hien Camara MD - 03/23/2025 HISTORY: L5-S1 ANT COMPARISON: CT from 08/01/2021 NOTE: If there are questions about thecontent of this report, please contact [facility] radiology by [phone] FINDINGS: 8 intraoperative fluoroscopic images of the lumbosacral junction providedduring discectomy. Anterolisthesis of L5 on S1 measures 17 mm Fluoroscopy time 30 seconds IMPRESSION Known L5 spondylolysis with grade 2 spondylolisthesis Status post recent discectomy and spacer placement L5-S1 George Zelaya MD RAD Final Resul t * ABO/Rh (03/23/2025 6:00 AM EDT) ABO/RH(D) O POSITIVE BLOOD BAN K GSH Comment:Tested at [facility] [address] [address] Blood 03/23/2025 6:00 AM EDT 03/23/2025 6:13 AM EDT George Zelaya MD BLOOD BANK TEST ORDERABLES Final Result [facility] [address] [place] [address] BLOOD BANK [address] [address] documented in this encounter Visit Diagnoses Diagnosis Pain associated with surgical procedure- Primary Spondylolisthesis, lumbar region Lumbar stenosis Spinal stenosis, lumbar region, without neurogenic claudication Spondylolisthesis of lumbar region Acquired spondylolisthesis Spondylolisthesis of lumbar region Acquired spondylolisthesis Spondylolisthesis, lumbar region documented in this encounter Admitting Diagnoses Diagnosis Spondylolisthesis, lumbar region documented in this encounter Administered Medications Inactive Administered Medications - up to 3 most recent administrations Medication Order MAR Action Action Date Dose Rate Site acetaminophen (TYLENOL) suppository 650 mg 650 mg, Rectal, Every 4 hours PRN, Fever (T > 100.4 or MD spec.), Mild Pain (1-3), Starting on Patt 03/23/25 at 1217, Give rectal acetaminophen if patient not able to tolerate oral. Adults: Maximum recommended dose for acetaminophen is 4,000 mg from all sources in 24 hours. Children: Maximum recommended dose of acetaminophen is 2,600 mg from all sources in 24 hours., Post-op acetaminophen (TYLENOL) tablet 1,000 mg 1,000 mg, Oral, Once, On Patt 03/23/25 at 0600, For 1 dose, DO NOT GIVE FOR CATARACTS OR ENDOSCOPY CASES OR WITH HISTORY OF CIRRHOSIS. DO NOT GIVE WITHIN 6 HOURS OF ACETAMINOPHEN OR MEDICATIONS CONTAINING ACETAMINOPHEN PATIENT MAY HAVE TAKEN PRIOR TO ARRIVAL. Adults: Maximum recommended dose for acetaminophen is 4,000 mg from all sources in 24 hours. Children: Maximum recommended dose of acetaminophen is 2,600 mg from all sources in 24 hours., Anesthesia Pre-Op Given 03/23/2025 5:58 AM EDT 1,000 mg acetaminophen (TYLENOL) tablet 650 mg 650 mg, Oral, Every 4 hours PRN, Fever (T > 100.4 or MD spec.), Mild Pain (1-3), Starting on Patt 03/23/25 at 1217, Give rectal acetaminophen if patient not able to tolerate oral. Adults: Maximum recommended dose for acetaminophen is 4,000 mg from all sources in 24 hours. Children: Maximum recommended dose of acetaminophen is 2,600 mg from all sources in 24 hours., Post-op Given 03/24/2025 8:21 AM EDT 650 mg Given 03/24/2025 12:25 AM EDT 650 mg Given 03/23/2025 8:03 PM EDT 650 mg aluminum hydroxide-magnesium hydroxide-simethicone (MAALOX PLUS) 400-400-40 mg/5 mL oral suspension 30 mL 30 mL, Oral, 4 times daily PRN, Gas, Starting on Patt 03/23/25 at 1314, Shake well prior to administration. amLODIPine (NORVASC) tablet 10 mg 10 mg, Oral, Daily, First dose on Patt 03/23/25 at 1300, NURSING: Please ensure that vital signs are measured and documented no later than 60 minutes prior to administration of this medication. Given 03/24/2025 9:54 AM EDT 10 mg Given 03/23/2025 2:34 PM EDT 10 mg ceFAZolin (ANCEF) 2 g in sodium chloride 0.9 % 50 mL IVPB (RN MIX) 2 g, Intravenous, Administer over 30 Minutes, Every 8 hours, First dose on Patt 03/23/25 at 1600, Administer first dose 8 hours after pre-op dose. Discontinue antibiotics after removal of drain. Per policy PHAR-24 (P&T approved 03/04), patients with non-severe penicillin or cephalosporin allergies (e.g. urticaria, rash, hives) may safely receive cefazolin. Severe allergies are as defined in PHAR-24, and will prompt a switch to an alternate antibiotic. Alternate antibiotics: vancomycin (VANCOCIN) 15 mg/kg IVPB every 12 hours (managed by physician). Nursing to mix components for infusion using vial adapter system., Post-opIndications:Surgical/Proced ural/Other Prophylaxis New Bag 03/23/2025 5:41 PM EDT 2 g 120 mL/h r chlorhexidine gluconate (ESPINOZA CLOTH) 2 % wipe Topical, Once, On Patt 03/23/25 at 0600, For 1 dose, Day of surgery, do additional site specific wipe with ESPINOZA 2% CHG wipe PRIOR TO surgery. If ESPINOZA wipe unavailable, use 4% chlorhexidine gluconate solution., Pre-opIndications:Spondylolisthesi s of lumbar region Given 03/23/2025 5:58 AM EDT 1 pad. diazePAM (VALIUM) tablet 5 mg 5 mg, Oral, Every 6 hours PRN, For muscle spasms, Starting on Patt 03/23/25 at 1001, For 30 days, Post-op Given 03/24/2025 12:25 AM EDT 5 mg HYDROmorphone (DILAUDID) injection 0.2-0.5 mg 0.2-0.5 mg, Intravenous, Every 10 min PRN, Moderate Pain (4-6), Severe Pain (7-10), 0.2 mg for moderate pain (4-6), 0.5 mg for severe pain (7-10). Until tolerating PO., Starting on Patt 03/23/25 at 0806, For 24 hours, Maximum cumulative dose for HYDROmorphone: 2 mg, May repeat every 10 minutes for the prescribed maximum cumulative dose., Anesthesia PACU Given 03/23/2025 11:14 AM EDT 0.5 mg Given 03/23/2025 10:27 AM EDT 0.5 mg lactated ringers infusion 20 mL/hr, Intravenous, Continuous, Starting on Patt 03/23/25 at 0600, Start IV #18 or #20 with 1,000 mL of lactated ringers infusion at 20 mL/hr. May initiate 2 IV lines if vancomycin indicated., Pre-opIndications:Spondylolisthesis of lumbar region Restarted 03/23/2025 8:20 AM EDT New Bag 03/23/2025 6:10 AM EDT 20 mL/hr 20 mL/hr methocarbamol (ROBAXIN) tablet 750 mg 750 mg, Oral, Every 6 hours, First dose on Patt 03/23/25 at 1300, Post-op Given 03/24/2025 12:59 PM EDT 750 mg Given 03/24/2025 9:53 AM EDT 750 mg Given 03/24/2025 2:48 AM EDT 750 mg ondansetron (ZOFRAN) injection 4 mg 4 mg, Intravenous, Every 6 hours PRN, Nausea, Starting on Patt 03/23/25 at 1217, ., Post-op Given 03/23/2025 5:33 PM EDT 4 mg oxycodone (ROXICODONE) 5 MG/5ML oral solution 5-10 mg 5-10 mg, Oral, Once as needed, Mild Pain (1-3), Moderate Pain (4-6), 5 mL for mild pain (1-3), 10 mL for moderate pain (4-6). When tolerating oral intake and unable to swallow tablet., Starting on Patt 03/23/25 at 0806, For 1 dose, For use when other acetaminophen containing products have been administered., Anesthesia PACU Given 03/23/2025 10:15 AM EDT 10 mg oxyCODONE (ROXICODONE) immediate release tablet 5-10 mg 5-10 mg, Oral, Every 4 hours PRN, Severe Pain (7-10), Starting on Patt 03/23/25 at 1217, For 30 days, For range orders, start at the lowest end of the range, additional doses may be administered upon reassessment as long as the total cumulative dose does NOT exceed the upper dose limit of the range order within the prescribed frequency. 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 On day of surgery, within 2 hours prior to scheduled procedure start time, clean inside both nostrils and tips of nostrils. Rotate swabstick around circumference of nostril and then rotate in anterior nares using slight pressure, for minimum of 6 revolutions for a total of 15 seconds. Discard swabstick and repeat for total of 2 administrations per nostril. Do not administer to those with a DIRECT ALLERGY to Profend/Povidine (povidone-iodine) or betadine. IV contrast dye, iodine, and shellfish allergies ARE NOT CONTRAINDICATIONS to povidone-iodine., Pre-opIndications:Spondy lolisthesis of lumbar region Given 03/23/2025 5:58 AM EDT 2 applicators promethazine (PHENERGAN) 12.5 mg in sodium chloride 0.9 % 50 mL IVPB (RN MIX) 12.5 mg, Intravenous, Administer over 30 Minutes, at 121 mL/hr, Every 6 hours PRN, Nausea, Vomiting, Starting on Patt 03/23/25 at 1834, Add ordered dose to a 50 mL bag of sodium chloride 0.9% solution. Infuse over a minimum of 30 minutes. New Bag 03/23/2025 6:57 PM EDT 12.5 mg 121 mL/hr scopolamine (TRANSDERM-SCOP) patch (delivers 1 mg/72 hrs) 1 patch, Transdermal, Administer over 72 Hours, Once, On Patt 03/23/25 at 0600, For 1 dose, Anesthesia Pre-Op, ADMINISTER ONLY IF PONV score is 3 or 4 AND patient is less than 60 years of age AND patient is receiving GENERAL anesthesia. Notify Anesthesia if patient does not meet this criteria, but SURGEON has ordered the patch. Do not administer to patients less than 18 years of age. Do not administer to or patients. Ensure patch is removed PRIOR TO a perioperative/procedural MRI or wait until after imaging to place ordered patch. Patch should be applied behind ear. Patch to deliver 1 mg scopolamine over 72 hours. Patch Applied 03/23/2025 6:11 AM EDT 1 patch Behind Right Ear senna (SENOKOT) 8.6 MG tablet 2 tablet 2 tablet, Oral, Daily, First dose on Patt 03/23/25 at 1300, Hold for loose stools. Routine bowel prophylaxis. Senna 2 tabs orally daily (0900 for less mobile patients, 2100 for more mobile patients). If no results, give one Bisacodyl suppository 8-12 hours later and toilet patient, preferably on bedside commode (after supper if less mobile, after breakfast if more mobile). For Impaction: Remove impaction and Follow with Bisacodyl suppository. If no results give or soapsuds enemas (Use tap water enema if patient has renal disease). If still insufficient results - give mineral oil enema followed by a soap suds enema if needed. Initiate routine bowel prophylaxis. If Patient goes for 3 days with no bowel movement (BM): Increase Senna to 2 tabs orally twice a day. When bowel movement occurs, go back to routine dosing. If no bowel movement within 1 day of dose increase: Increase Senna to 3 tabs orally twice a day and Bisacodyl tabs 2 orally for one dose. If no BM after 8-12 hours, check for impaction. If no impaction give one dulcolax suppository. Given 03/24/2025 9:54 AM EDT 2 tablets Given 03/23/2025 2:34 PM EDT 2 tablets sodium chloride 0.9% with potassium chloride 20 mEq/L infusion 100 mL/hr, Intravenous, Continuous, Starting on Patt 03/23/25 at 1100, After completion of surgery IV fluids, until taking oral fluids well, then change to saline lock and discontinue IV fluid order. If new bag needed, please send message to pharmacy. *POTENTIAL EXTRAVASATION RISK*, Post-op New Bag 03/23/2025 9:12 PM EDT 100 mL/hr 10 0 mL/hr New Bag 03/23/2025 10:19 AM EDT 100 mL/hr 100 mL/hr documented in this encounter Active and Recently Administered Medications Times are shown in EDT. Scheduled Medication Order 03/22/2025 03/23/2025 03/24/2025 acetaminophen (TYLENOL) tablet 1,000 mg (COMPLETED) 1,000 mg, Oral, Once, On Patt 03/23/25 at 0600, For 1 dose, DO NOT GIVE FOR CATARACTS OR ENDOSCOPY CASES OR WITH HISTORY OF CIRRHOSIS. DO NOT GIVE WITHIN 6 HOURS OF ACETAMINOPHEN OR MEDICATIONS CONTAINING ACETAMINOPHEN PATIENT MAY HAVE TAKEN PRIOR TO ARRIVAL. Adults: Maximum recommended dose for acetaminophen is 4,000 mg from all sources in 24 hours. Children: Maximum recommended dose of acetaminophen is 2,600 mg from all sources in 24 hours., Anesthesia Pre-Op 0558 (Given - Provider: Padmini Mcdonald, Registered Nurse) amLODIPine (NORVASC) tablet 10 mg 10 mg, Oral, Daily, First dose on Patt 03/23/25 at 1300, NURSING: Please ensure that vital signs are measured and documented no later than 60 minutes prior to administration of this medication. 1434 (Given - Provider: Rodriguez Ogden, Registered Nurse) 0954 (Given - Provider: Spring Spain) ceFAZolin (ANCEF) 2 g in sodium chloride 0.9 % 50 mL IVPB (RN MIX) (CANCELED) 2 g, Intravenous, Administer over 30 Minutes, Every 8 hours, First dose on Patt 03/23/25 at 1600, Administer first dose 8 hours after pre-op dose. Discontinue antibiotics after removal of drain. Per policy PHAR-24 (P&T approved 03/04), patients with non-severe penicillin or cephalosporin allergies (e.g. urticaria, rash, hives) may safely receive cefazolin. Severe allergies are as defined in PHAR-24, and will prompt a switch to an alternate antibiotic. Alternate antibiotics: vancomycin (VANCOCIN) 15 mg/kg IVPB every 12 hours (managed by physician). Nursing to mix components for infusion using vial adapter system., Post-op 174 (New Bag - Provider: Rodriguez Ogden, Registered Nurse) chlorhexidine gluconate (ESPINOZA CLOTH) 2 % wipe (COMPLETED) Topical, Once, On Patt 03/23/25 at 0600, For 1 dose, Day of surgery, do additional site specific wipe with ESPINOZA 2% CHG wipe PRIOR TO surgery. If ESPINOZA wipe unavailable, use 4% chlorhexidine gluconate solution., Pre-op 0558 (Given - Provider: Padmini Mcdonald, Registered Nurse) famotidine (PEPCID) intravenous injection 20 mg (COMPLETED) 20 mg, Intravenous, Once, On Patt 03/23/25 at 0800, For 1 dose, Dilute to 10 mL with 0.9% sodium chloride and give over 2 minutes., Anesthesia Pre-Op 0809 (Given - Provider: Kate Cerda) methocarbamol (ROBAXIN) tablet 750 mg 750 mg, Oral, Every 6 hours, First dose on Patt 03/23/25 at 1300, Post-op 1434 (Given - Provider: Rodriguez Ogden, Registered Nurse)2053 (Given - Provider: Sarah Lopez, Registered Nurse) 0248 (Given - Provider: Sarah Lopez, Registered Nurse)0953 (Given - Provider: Spring Spain)1259 (Given - Provider: Rodriguez Ogden, Registered Nurse) polyethylene glycol (GLYCOLAX,MIRALAX) packet 17 g 17 g, Oral, Daily, First dose on Patt 03/23/25 at 1300, Mix 17 grams in 8 ounces of water (or other liquid)., Post-op 1434 (Not Given - Provider: Rodriguez Ogden, Registered Nurse - Reason: Patient/family refused) 0953 (Given - Provider: Spring Spain) scopolamine (TRANSDERM-SCOP) patch (delivers 1 mg/72 hrs) 1 patch, Transdermal, Administer over 72 Hours, Once, On Patt 03/23/25 at 0600, For 1 dose, Anesthesia Pre-Op, ADMINISTER ONLY IF PONV score is 3 or 4 AND patient is less than 60 years of age AND patient is receiving GENERAL anesthesia. Notify Anesthesia if patient does not meet this criteria, but SURGEON has ordered the patch. Do not administer to patients less than 18 years of age. Do not administer to or patients. Ensure patch is removed PRIOR TO a perioperative/procedural MRI or wait until after imaging to place ordered patch. Patch should be applied behind ear. Patch to deliver 1 mg scopolamine over 72 hours. 0611 (Patch Applied - Provider: Padmini Mcdonald, Registered Nurse) 1353 (Due: Patch Removed - Provider: Automatic Discharge Provider - Comment: Time automatically adjusted from order being discontinued) senna (SENOKOT) 8.6 MG tablet 2 tablet 2 tablet, Oral, Daily, First dose on Patt 03/23/25 at 1300, Hold for loose stools. Routine bowel prophylaxis. Senna 2 tabs orally daily (0900 for less mobile patients, 2100 for more mobile patients). If no results, give one Bisacodyl suppository 8-12 hours later and toilet patient, preferably on bedside commode (after supper if less mobile, after breakfast if more mobile). For Impaction: Remove impaction and Follow with Bisacodyl suppository. If no results give or soapsuds enemas (Use tap water enema if patient has renal disease). If still insufficient results - give mineral oil enema followed by a soap suds enema if needed. Initiate routine bowel prophylaxis. If Patient goes for 3 days with no bowel movement (BM): Increase Senna to 2 tabs orally twice a day. When bowel movement occurs, go back to routine dosing. If no bowel movement within 1 day of dose increase: Increase Senna to 3 tabs orally twice a day and Bisacodyl tabs 2 orally for one dose. If no BM after 8-12 hours, check for impaction. If no impaction give one dulcolax suppository. 1434 (Given - Provider: Rodriguez Ogden, Registered Nurse) 0954 (Given - Provider: Spring Spain) Continuous Medication Order 03/22/2025 03/23/2025 03/24/2025 lactated ringers infusion (CANCELED) 20 mL/hr, Intravenous, Continuous, Starting on Patt 03/23/25 at 0600, Start IV #18 or #20 with 1,000 mL of lactated ringers infusion at 20 mL/hr. May initiate 2 IV lines if vancomycin indicated., Pre-op 0610 (New Bag - Provider: Padmini Mcdonald, Registered Nurse)0819 (Paused - Provider: Kate Cerda - Comment: Switch to gravity)0820 (Restarted - Provider: Kate Cerda) sodium chloride 0.9% with potassium chloride 20 mEq/L infusion 100 mL/hr, Intravenous, Continuous, Starting on Patt 03/23/25 at 1100, After completion of surgery IV fluids, until taking oral fluids well, then change to saline lock and discontinue IV fluid order. If new bag needed, please send message to pharmacy. *POTENTIAL EXTRAVASATION RISK*, Post-op 1019 (New Bag - Provider: Annmarie Love, Registered Nurse)2112 (New Bag - Provider: Sarah Lopez, Registered Nurse) PRN Medication Order 03/22/2025 03/23/2025 03/24/2025 acetaminophen (TYLENOL) suppository 650 mg(Linked Group 1) 650 mg, Rectal, Every 4 hours PRN, Fever (T > 100.4 or MD spec.), Mild Pain (1-3), Starting on Patt 03/23/25 at 1217, Give rectal acetaminophen if patient not able to tolerate oral. Adults: Maximum recommended dose for acetaminophen is 4,000 mg from all sources in 24 hours. Children: Maximum recommended dose of acetaminophen is 2,600 mg from all sources in 24 hours., Post-op 2002 (See Alternative - Provider: Sarah Lopez, Registered Nurse) 24 (See Alternative - Provider: Sarah Lopez, Registered Nurse)820 (See Alternative - Provider: Spring Spain) acetaminophen (TYLENOL) tablet 650 mg(Linked Group 1) 650 mg, Oral, Every 4 hours PRN, Fever (T > 100.4 or MD spec.), Mild Pain (1-3), Starting on Patt 03/23/25 at 1217, Give rectal acetaminophen if patient not able to tolerate oral. Adults: Maximum recommended dose for acetaminophen is 4,000 mg from all sources in 24 hours. Children: Maximum recommended dose of acetaminophen is 2,600 mg from all sources in 24 hours., Post-op 2002 (Given - Provider: Sarah Lopez, Registered Nurse) 24 (Given - Provider: Sarah Lopez, Registered Nurse)820 (Given - Provider: Spring Spain) aluminum hydroxide-magnesium hydroxide-simethicone (MAALOX PLUS) 400-400-40 mg/5 mL oral suspension 30 mL 30 mL, Oral, 4 times daily PRN, Gas, Starting on Patt 03/23/25 at 1314, Shake well prior to administration. bisacodyl (DULCOLAX) suppository 10 mg 10 mg, Rectal, Daily as needed, Constipation, For use with Bowel Guildeline., Starting on Patt 03/23/25 at 1217, Give suppository bisacodyl if patient unable to tolerate oral. 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 Per policy PHAR-24 (P&T approved 03/04), patients with non-severe penicillin or cephalosporin allergies (e.g. urticaria, rash, hives) may safely receive cefazolin. Severe allergies are as defined in PHAR-24, and will prompt a switch to an alternate antibiotic. Nursing to mix components for infusion using vial adapter system., Pre-op 0741 (New Bag - Provider: Kate Cerda) diazePAM (VALIUM) tablet 5 mg 5 mg, Oral, Every 6 hours PRN, For muscle spasms, Starting on Patt 03/23/25 at 1001, For 30 days, Post-op 0025 (Given - Provider: Sarah Lopez, Registered Nurse) HYDROmorphone (DILAUDID) injection 0.2-0.5 mg (CANCELED) 0.2-0.5 mg, Intravenous, Every 10 min PRN, Moderate Pain (4-6), Severe Pain (7-10), 0.2 mg for moderate pain (4-6), 0.5 mg for severe pain (7-10). Until tolerating PO., Starting on Patt 03/23/25 at 0806, For 24 hours, Maximum cumulative dose for HYDROmorphone: 2 mg, May repeat every 10 minutes for the prescribed maximum cumulative dose., Anesthesia PACU 1027 (Given - Provider: Annmarie Love, Registered Nurse)1114 (Given - Provider: Annmarie Love, Registered Nurse) HYDROmorphone (DILAUDID) injection 0.5-1 mg 0.5-1 mg, Intravenous, Every 4 hours PRN, Moderate Pain (4-6), Severe Pain (7-10), Starting on Patt 03/23/25 at 1217, For 30 days, Until tolerating oral medication. 0.5 mg for Moderate Pain, 1 mg for Severe Pain., Post-op lidocaine (URO-JET) 2 % urological gel 10 mL 10 mL, Urethral, As needed, Other, For catheterization if not allergic., Starting on Patt 03/23/25 at 1216 ondansetron (ZOFRAN) injection 4 mg 4 mg, Intravenous, Every 6 hours PRN, Nausea, Starting on Patt 03/23/25 at 1217, ., Post-op 1733 (Given - Provider: Rodriguez Ogden, Registered Nurse) oxycodone (ROXICODONE) 5 MG/5ML oral solution 5-10 mg (COMPLETED)(Linked Group 2) 5-10 mg, Oral, Once as needed, Mild Pain (1-3), Moderate Pain (4-6), 5 mL for mild pain (1-3), 10 mL for moderate pain (4-6). When tolerating oral intake and unable to swallow tablet., Starting on Patt 03/23/25 at 0806, For 1 dose, For use when other acetaminophen containing products have been administered., Anesthesia PACU 1015 (Given - Provider: Annmarie Love, Registered Nurse) oxyCODONE (ROXICODONE) immediate release tablet 5-10 mg 5-10 mg, Oral, Every 4 hours PRN, Severe Pain (7-10), Starting on Patt 03/23/25 at 1217, For 30 days, For range orders, start at the lowest end of the range, additional doses may be administered upon reassessment as long as the total cumulative dose does NOT exceed the upper dose limit of the range order within the prescribed frequency. 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 On day of surgery, within 2 hours prior to scheduled procedure start time, clean inside both nostrils and tips of nostrils. Rotate swabstick around circumference of nostril and then rotate in anterior nares using slight pressure, for minimum of 6 revolutions for a total of 15 seconds. Discard swabstick and repeat for total of 2 administrations per nostril. Do not administer to those with a DIRECT ALLERGY to Profend/Povidine (povidone-iodine) or betadine. IV contrast dye, iodine, and shellfish allergies ARE NOT CONTRAINDICATIONS to povidone-iodine., Pre-op 0558 (Given - Provider: Padmini Mcdonald, Registered Nurse) promethazine (PHENERGAN) 12.5 mg in sodium chloride 0.9 % 50 mL IVPB (RN MIX) 12.5 mg, Intravenous, Administer over 30 Minutes, at 121 mL/hr, Every 6 hours PRN, Nausea, Vomiting, Starting on Patt 03/23/25 at 1834, Add ordered dose to a 50 mL bag of sodium chloride 0.9% solution. Infuse over a minimum of 30 minutes. 1857 (New Bag - Provider: Rodriguez Ogden, Registered Nurse) senna (SENOKOT) 8.6 MG tablet 1-3 tablet 1-3 tablet, Oral, 2 times daily PRN, Constipation, For use with Bowel Guideline. Use in conjunction with scheduled Senna dosing order., Starting on Patt 03/23/25 at 1216, If patient goes for 3 days with no bowel movement: Increase Senna to 2 tablets twice a day. When bowel movement occurs go back to routine dosing. If no bowel movement within 1 day of dose increase: Increase Senna to 3 tablets twice a day. When bowel movement occurs go back to routine dosing. sodium chloride 0.9 % flush 3 mL 3 mL, Intravenous, As needed, Line Care, Starting on Patt 03/23/25 at 1217, Post-op sodium chloride 0.9 % for ALARIS pump flush 0-20 mL/hr, Intravenous, As needed, Line Care, Starting on Patt 03/23/25 at 1217, sodium chloride 0.9% solution for IV line flush requirements through the Alaris Pump., Post-op vancomycin (VANCOCIN) 1,000 mg in sodium chloride 0.9 % 1,000 mL irrigation solution (CANCELED) As needed, Starting on Patt 03/23/25 at 0938, Intra-op 0938 (Given - Provider: George Zelaya MD - Comment: Back table irrigation) vancomycin (VANCOCIN) injection (CANCELED) As needed, Starting on Patt 03/23/25 at 0938, Intra-op 0938 (Given - Provider: George Zelaya MD - Comment: Powder placed in posterior incisions) Linked Groups Order Group 1: acetaminophen (TYLENOL) tablet 650 mgJump to med 650 mg, Oral, Every 4 hours PRN, Fever (T > 100.4 or MD spec.), Mild Pain (1-3), Starting on Patt 03/23/25 at 1217, Give rectal acetaminophen if patient not able to tolerate oral. Adults: Maximum recommended dose for acetaminophen is 4,000 mg from all sources in 24 hours. Children: Maximum recommended dose of acetaminophen is 2,600 mg from all sources in 24 hours., Post-op Or acetaminophen (TYLENOL) suppository 650 mgJump to med 650 mg, Rectal, Every 4 hours PRN, Fever (T > 100.4 or MD spec.), Mild Pain (1- 3), Starting on Patt 03/23/25 at 1217, Give rectal acetaminophen if patient not able to tolerate oral. Adults: Maximum recommended dose for acetaminophen is 4,000 mg from all sources in 24 hours. Children: Maximum recommended dose of acetaminophen is 2,600 mg from all sources in 24 hours., Post-op Group 2: oxyCODONE (ROXICODONE) immediate release tablet 5-10 mg (COMPLETED) 5-10 mg, Oral, Once as needed, Mild Pain (1-3), Moderate Pain (4-6), 1 tablet for mild pain (1-3), 2 tablets for moderate pain (4-6). When tolerating oral intake., Starting on Patt 03/23/25 at 0806, For 1 dose, If unable tolerate tablet form give oxycodone oral solution. For use when other acetaminophen containing products have been administered., Anesthesia PACU Or oxycodone (ROXICODONE) 5 MG/5ML oral solution 5-10 mg (COMPLETED)Jump to med 5-10 mg, Oral, Once as needed, Mild Pain (1-3), Moderate Pain (4-6), 5 mL for mild pain (1-3), 10 mL for moderate pain (4-6). 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
--- OUTSIDE RECORDS SUMMARY | 2025-03-23 07:30 | XMS_ITS | Encounter Summary ---
Author Organization [facility] Address [address] [place] [address] Phone Care Team Providers Care Pointing Machine Operator Name Role Phone Esdras Holland MD Primary Care Provider Reason for Visit * Auth/Cert (Routine) Specialty Diagnoses / Procedures Referred By Contac t Referred To Contact Diagnoses Spondylolisthesis, lumbar region Lumbar stenosis Spondylolisthesis, lumbar region [M43.16] Lumbar stenosis [M48.061] Procedures FUSION SPINE ANTERIOR (ALIF) W/WO INSTRUMENTS W ILIAC CREST BONE GRAFT FUSION SPINE POSTERIOR (PLIF) LUMBAR W/ INSTRUMENTS-MINIMALLY INVASIVE Referral ID Status Reason Start Date Expiration Date Visits Re quested Visits Authorized [id number] 1 1 Encounter Details Date Type Department Care Team (Late st Contact Info) Description 03/23/2025 7:30 AM EDT - 03/23/2025 10:37 AM EDT Surgery [facility] [address] [place] [id number] George Zelaya MD [address] [place] [address] L5-S1 ANTERIOR INTERBODY FUSION, Social History Tobacco Use Types Packs/Day Years [...] Sign Reading Time Taken Comments Blood Pressure 127/107 03/23/2025 10:35 AM EDT Pulse 78 03/23/2025 10:35 AM EDT Temperature 36.5 C (97.7 F) 03/23/2025 10:10 AM EDT Respiratory Rate 23 03/23/2025 10:35 AM EDT Oxygen Saturation 97% 03/23/2025 10:35 AM EDT Inhaled Oxygen Concentration - - Weight 86.2 kg (190 lb) 03/23/2025 5:55 AM EDT Height - - Body Mass Index 34.75 03/23/2025 5:55 AM [...] 5:45 AM Valerio Nguyễn, Registered Nurse * Are you blind or do you have serious difficulty seeing, even when wearing glasses? Answer Date of Assessment Author No 03/23/2025 5:45 AM Valerio Nguyễn, Registered Nurse * Do you have serious difficulty walking or climbing stairs? (5 years old or older) Answer Date of Assessment Author No 03/23/2025 5:45 AM Valerio Nguyễn, Registered Nurse * Do you have difficulty dressing or bathing? (5 years old or older) Answer Date of Assessment Author No 03/23/2025 5:45 AM EDValerio White, Registered Nurse * Because of a physical, [...] Date Author No 03/23/2025 5:45 AM Valerio Nguyễn Registered Nurse documented in this encounter Discharge [...] [facility] [address] [facility] [address] diazePAM 5 MG Tabs methocarbamol 750 MG [...] from the original note were not included. [phone] Discharge Instructions - Lumbar Fusion Surgery During [...] the glue. Pat dry. If you have gayla, steri-strips or stitches, you may shower 2 [...] your incision heals. Call your physician at [phone] if you experience: Fever over 101.5?? (unrelieved [...] have colored drainage and begin to separate. Gayla, steri-strips, and stitches are removed at your [...] bowels. Colace, Senokot, Dulcolax and Miralax are bynz-qum-jorikvz options. If painful constipation does not get [...] be directed to the Care Management Departments: [facility] [phone] or [facility] [phone] or [facility] [phone]. * Alyx Barnes CNP - 03/24/2025 9:55 [...] is usually quite accurate but there are metal machine operator errors that can and often occur. [...] note were not included. [facility] CONSULT NOTE [facility] Patient: Phillip Meraz Room/Bed: [address] [place] [address] Date of : 1970 Age: [age] year [...] contact the author as some errors of metal machine operator may have occurred. documented in this [...] SCREW FUSION POD 1. She lives in [facility] with while they build their home, and is typically independent with ADLS in standing, IADLS, driving and working at [employer]. 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 [...] was left up in chair with neuro FORGE OPERATOR and . All needs met; call light in reach. End of session safety check completed. This documentation to serve as the conclusion of this patient's care should there be an unplanned discharge from the hospital prior to the next therapy treatment. Signature: Sandra Soares OTR/L #[id number] Ext [phone] * Care Coordination Note - Jenny Real [...] None Prior Level of Function Level of Miner Independent Ambulates/Mobilizes with No device Fall History [...] met/within reach. Signature: Megan Gr PT, DPT [id number] extension [phone] * Shift Summary - Rodriguez Ogden, Registered [...] from the original note were not included. Licensed Direct Entry Midwife/Pastoral Care Note Patient was consulting with her doctor at the time of this visit. Informed Pt of my presence and prayed silently before leaving 03/23/25 1000 Clinical Encounter Type Visited by Licensed Direct Entry Midwife Visited With Patient and family/friends together;Health care provider Room Number GSPS/PSPB #2 Visit Type Visit Type Surgical Visit Night Call No Nature of Encounter Emotional support;Spiritual support Social Interaction KARRI (unable to assess) Yessi Traditon Anglican [employer] Last Visit Date and Comments 03/23/25 (JW: Patient not available) Brando Nelson Licensed Direct Entry Midwife To Reach a Licensed Direct Entry Midwife: For the fastest response, please Voalte the On-Call Licensed Direct Entry Midwife in the [facility] or [facility] Region on Voalte in the [employer]. On-Call chaplains are available 06/04 from home for emergency or end-of-life needs. For Advance Directives, please place an [facility] consult order. We respond to all Advance Directive requests within a 24-hour period. Chaplains??? Office Phone: [facility] [phone] [facility] Region: [phone] [place] Guillaume Magana [phone] * Operative Report - George Zelaya MD [...] MEP, EMG monitoring. 5. Stereotactic navigation with sendwithus Pulse system SURGEON: George Zelaya M.D. MEAT CUTTER: Sola Gomez PA-C. I required an assistant manager due to the complexity of the case, [...] Fabi drill was used to create a forestry pilot hole and then a trajectory was [...] the case. I affirm in accordance with [facility] regulations that I was present for all [...] an anterior lumbar interbody fusion 62 modifier. Education Finance Processor surgeon for placement of interbody fusion hardware [...] A timeout was then performed to identify thecorrect patient, procedure and location. A vertical midline [...] is usually quite accurate but there are metal machine operator errors that can and often occur. [...] the past 12 months: no Resident of [facility]: no Patient on Chronic Hemodialysis: no Previous [...] the content of this report, please contact [facility] by calling [phone] FINDINGS: ALIGNMENT: No abnormal curvature BONES: Unremarkable. [...] about the content of this report, pleasecontact [facility] by calling [phone] FINDINGS: ALIGNMENT: No abnormal curvature BONES: Unremarkable. [...] Soft tissue changes compatible with surgical approach us Sola Gomez PA-C CT Final Result * FL OR XRAY FLUORO SUPPORT (03/23/2025 10:00 AM EDT) Narrative Vane Sidhu ARRT - 03/23/2025 10:00 AM EDT This procedure has been auto-finalized, and is for reference only. As such, there is no formally dictated Radiant result report. If an Ambulatory procedure order, results may be included in either office, or H&P notes. George Zelaya MD RAD Final Resul t [...] the content of this report, please contact [facility] by calling [phone] FINDINGS: Spinal fixation system in grossly satisfactory position. No evidence of retroperitoneal hematoma. OTHER: None Procedure Note Hien Camara MD - 03/23/2025 HISTORY: L5-S1 POST COMPARISON: None TECHNIQUE: Technically limited portable intraoperative CT scan FLUOROSCOPY TIME: 37 seconds NOTE: If there are questions about the content of this report, pleasecontact [facility] by calling [phone] FINDINGS: Spinal fixation system in grossly satisfactory position. No evidence ofretroperitoneal hematoma. OTHER: None IMPRESSION No unexpected findings on limited intraoperative CT scan George Zelaya MD RAD Final Resul t [...] of this report, please contact [facility] radiology by calling [phone] FINDINGS: 8 intraoperative fluoroscopic images of the lumbosacral junction provided during discectomy. Anterolisthesis of L5 on S1 measures 17 mm Fluoroscopy time 30 seconds Procedure Note Hien Camara MD - 03/23/2025 HISTORY: L5-S1 ANT COMPARISON: CT from 08/01/2021 NOTE: If there are questions about thecontent of this report, please contact [facility] radiology by [phone] FINDINGS: 8 intraoperative fluoroscopic images of the lumbosacral junction providedduring discectomy. Anterolisthesis of L5 on S1 measures 17 mm Fluoroscopy time 30 seconds IMPRESSION Known L5 spondylolysis with grade 2 spondylolisthesis Status post recent discectomy and spacer placement L5-S1 George Zelaya MD RAD Final Resul t * ABO/Rh (03/23/2025 6:00 AM EDT) ABO/RH(D) O POSITIVE BLOOD BAN K [facility] Comment:Tested at [address] [address] Blood 03/23/2025 6:00 AM EDT 03/23/2025 6:13 AM EDT George Zelaya MD BLOOD BANK TEST ORDERABLES Final Result [facility] [address] [place] [address] BLOOD BANK [facility] [address] [place] [address] documented in this encounter Visit Diagnoses Diagnosis Pain associated with surgical procedure- Primary Spondylolisthesis, lumbar region Lumbar stenosis Spinal stenosis, lumbar region, without neurogenic claudication Spondylolisthesis of lumbar region Acquired spondylolisthesis Spondylolisthesis, lumbar region Lumbar stenosis Spinal stenosis, lumbar region, without neurogenic claudication documented in this encounter Admitting Diagnoses Diagnosis [...] Given 03/23/2025 2:34 PM EDT 10 mg bupivacaine (PF) (MARCAINE PF) 0.5 % 30 mL, bupivacaine liposome (EXPAREL) 1.3 % 20 mL injection As needed, Starting on Patt 03/23/25 at 0938, Intra-op Given 03/23/2025 9:38 AM EDT 50 mLs Back ceFAZolin (ANCEF) 2 g in sodium chloride [...] components for infusion using vial adapter system., Post-opIndications:Surgical/Proce dural/Other Prophylaxis New Bag 03/23/2025 5:41 PM EDT 2 g 120 mL/ hr chlorhexidine gluconate (ESPINOZA CLOTH) 2 % wipe Topical, Once, On Patt 03/23/25 at 0600, For 1 dose, Day of surgery, do additional site specific wipe with ESPINOZA 2% CHG wipe PRIOR TO surgery. If ESPINOZA wipe unavailable, use 4% chlorhexidine gluconate solution., Pre-opIndications:Spondylolisthes is of lumbar region Given 03/23/2025 5:58 AM [...] hours PRN, Severe Pain (7-10), Starting on [facility] 03/23/25 at 1217, For 30 days, For [...] swab 2 applicator 2 applicator, Each Nare, residential driver to O.R., Other, decolonization prior to surgery., Starting on [facility] 03/23/25 at 0521, For 1 dose, Administer [...] 10:19 AM EDT 100 mL/hr 100 mL/hr vancomycin (VANCOCIN) 1,000 mg in sodium chloride 0.9 % 1,000 mL irrigation solution As needed, Starting on Patt 03/23/25 at 0938, Intra-op Given 03/23/2025 9:38 AM EDT vancomycin (VANCOCIN) injection As needed, Starting on Patt 03/23/25 at 0938, Intra-op Given 03/23/2025 9:38 AM EDT 1 g Back documented in this encounter Active and Recently [...] all sources in 24 hours., Anesthesia Pre-Op 05 (Given - Provider: Padmini Mcdonald, Registered Nurse) [...] unavailable, use 4% chlorhexidine gluconate solution., Pre-op 05 (Given - Provider: Padmini Mcdoanld, Registered Nurse) famotidine (PEPCID) intravenous injection 20 [...] liquid)., Post-op 1434 (Not Given - Provider: Kraig Traore Nurse - Reason: Patient/family refused) 0953 (Given [...] (See Alternative - Provider: Sarah Lopez, Registered Nurse)08 (See Alternative - Provider: Spring Spain) acetaminophen [...] 2 g, Intravenous, Administer over 30 Minutes, residential driver, Other, surgical prophylaxis, Starting on Patt 03/23/25 [...] 1440 (Given - Provider: Rodriguez Ogden, Registered Nurse)2002 (Given - Provider: Sarah Lopez, Registered Nurse) 0419 (Given - Provider: Sarah Lopez, Registered Nurse)1259 (Given - Provider: Rodriguez Ogden, Registered Nurse) povidone-iodine (PROFEND) 10 % nasal swab 2 applicator (COMPLETED) 2 applicator, Each Nare, residential driver to O.R., Other, decolonization prior to surgery., [...] PACU documented in this encounter Care Teams Pointing Machine Operator Relationship Specialty Start Date End Date Esdras Holland MD [facility] [address] [place] [address] PCP - General Family Medicine 03/23/25 documented as of this encounter
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
--- OUTSIDE RECORDS SUMMARY | 2025-04-05 13:39 | XMS_ITS ---
Author Organization [facility] Address [address] [place] [address] Phone Care Team Providers Care Child Care Teacher Name Role Phone Sola Gomez PA-C Unavailable [phone] Conditions or Problems No information available. Medications No information available. Medications Administered No information available. Allergies, Adverse Reactions, Alerts No information available. Results No information available. Plan of Care Type Date Detail Appointment 03:45 PM Brandon rahman MD, Pending order X-Ray Lumbar AP Lateral Procedures No information available. Vital Signs No information available. Immunizations No information available. Advance Directives No information available.
--- NOTE | 2025-05-02 13:45 | XR_ITS ---
FINAL REPORT CLINICAL HISTORY: LUMBAR STENOSIS FINDINGS: LUMBAR SPINE Five views were obtained. There is no acute fracture. The disc spaces are well-preserved. There is posterior and interbody fusion hardware bridging L5-S1. There is minimal spondylolisthesis of L5 on S1. Mild anterior osteophyte formation is seen at L1-2, L2-3, and L3-4. IMPRESSION: Degenerative and postsurgical changes as above. Reviewed, Interpreted and Dictated by Brad Phillip MD Transcribed by Aliza Glover Authenticated and [facility]
--- OUTSIDE RECORDS SUMMARY | 2025-05-02 13:45 | XMS_ITS | Encounter Summary ---
Author Organization [facility] Address [address], [address] [place] [address] Care Team Providers Care Supervisor Slate Splitting Name Role Phone Dorothea Garibay APRN, CNP Primary Care Prov ider Encounter Details Date Type Department Care Team (Late st Contact Info) Description 11/09/2009 Surg/Proc Orders Vascular Surgery [address] [phone] Jerry Covington MD Social History Tobacco Use Types Packs/Day Years Used Date Smoking Tobacco: Never Assessed Comments No Sex and Gender Information Value Date Recorded Sex Assigned at Not on file Legal Sex Female 5:06 PM EST Gender Identity Not on file Sexual Orientation Not on file documented as of this encounter Plan of Treatment Not on file documented as of this encounter Visit Diagnoses Not on filedocumented in this encounter Care Teams Supervisor Slate Splitting Relationship Specialty Start Date End Date Dorothea Garibay APRN - CNP PCP - General Nurse Practitioner 01/07/21 documented as of this encounter
--- OUTSIDE RECORDS SUMMARY | 2025-05-02 13:45 | XMS_ITS | Clinical Summary ---
Author Organization [facility] Address [address], [address] [place] [address] Care Team Providers Care Plant Packer Name Role Phone Dorothea Garibay QUENTIN - CHECK EMBOSSER Primary Care Prov ider Allergies No known active allergies Medications lisinopril (PRINIVIL;ZESTRI L) 20 MG tablet Take 20 mg by mouth daily Active Active Problems Problem Noted Date Diagnosed Date Non morbid obesity, unspecified obesity type Essential hypertension 02/19/2015 Overview (01/07/2021): BP Readings from Last 3 Encounters: 01/11/18 (!) 158/104 06/15/17 (!) 152/98 05/12/16 (!) 158/98 Last Assessment & Plan: Continue amlodipine and start toprol xl on 01/11/18 S/P exploratory laparotomy 11/20/2009 S/P Ileal Colectomy 11/20/2009 Depression 11/20/2009 Fungal dermatitis 11/20/2009 Bowel perforation 11/12/2009 Immunizations Immunization Administration Dates Next Due Pneumococcal, PPSV23, PNEUMO VAX 23, (age 2y+), SC/IM, 0.5mL 11/12/2009 Social History Tobacco Use Types Packs/Day Years Used Date Smoking Tobacco: Former Cigarettes Q uit: 2006 Smokeless Tobacco: Never Tobacco Cessation:Counseling Given: Yes Comments:social smoker for a year Alcohol Use Standard Drinks/Week Comments Not Asked 0 (1 standard drink = 0.6 oz pur e alcohol) Comments No Sex and Gender Information Value Date Recorded Sex Assigned at Not on file Legal Sex Female 5:06 PM EST Gender Identity Not on file Sexual Orientation Not on file Last Filed Vital Signs Vital Sign Reading Time Taken Comments Blood Pressure 146/88 01/07/2021 11:58 AM EDT Pulse 76 01/07/2021 11:58 AM EDT Temperature 36.7 C (98.1 F) 01/04/2018 2:24 PM EDT Respiratory Rate 13 01/04/2018 6:07 PM EDT Oxygen Saturation 100% 01/04/2018 6:07 PM EDT Inhaled Oxygen Concentration - - Weight 87.6 kg (193 lb 3.2 oz) 01/07/2021 11:58 AM EDT Height 157.5 cm (5' 2 ) 01/07/2021 11:58 AM EDT Body Mass Index 35.34 01/07/2021 11:58 AM EDT Plan of Treatment Not on file Insurance Advance Directives * Full Code (Latest Code Status on File) Date Activated Date Inactivated Comments 11/10/2009 8:13 AM 11/20/2009 6:53 PM Care Teams Plant Packer Relationship Specialty Start Date End Date Dorothea Garibay APRN - CHECK EMBOSSER PCP - General Nurse Practitioner 01/07/21
--- OUTSIDE RECORDS SUMMARY | 2025-05-02 13:45 | XMS_ITS | Clinical Summary ---
Author Organization [facility] Address [address] [place] [address] Phone Care Team Providers Care Contracting Specialist Name Role Phone Uma PALENCIA Brandon Keshawn [phone] Conditions or Problems Problem Name Problem Code Onset Date Status Entry Date Provider Comment Standard Description Annotate ARTHRODESIS STATUS 714140021 (SNOMED CT) 04/05 Active 04/05 Marycruz Hills MA H/O: arthrodesis LUMBAR STENOSIS, L5-S1 M48.07 (ICD-10-CM ) 11/29 Active 11/29 Lety Qureshi MA Spinal stenosis, lumbosacral region OVERWEIGHT 885214856 (SNOMED CT) 09/28 Active 09/28 Carlota Singh MA Overweight LUMBAR SPONDYLOLIST HESIS 738814650 (SNOMED CT) 09/28 Active 09/28 Sola Gomez PA-C Spondylolisthes is Screening for depression 912335006 (SNOMED CT) Active 09/15 Lety Qureshi MA Depression screening Imported from CD[facility]: [facility] (15-Sep-19 at 02:05:15 PM) Obesity, Class II, BMI 35-39.9 E66.812 (ICD-10-CM ) Active 09/15 Lety Qureshi MA Obesity, class 2 Imported from CDA: [facility] (15-Sep-19 at 02:05:15 PM) Nonintractab le headache R51.9 (ICD-10-CM ) 01/11 Active 09/15 Lety Qureshi MA Headache, unspecified Imported from CDA: [facility] (15-Sep-19 at 02:05:15 PM) Exercise counseling 608973753 (SNOMED CT) 05/12 Active 09/15 Lety Qureshi MA Patient given written advice on benefits of physical activity Imported from CDA: [facility] (15-Sep-19 at 02:05:15 PM) Alcohol screening Z13.39 (ICD-10-CM ) Active 09/15 Lety Qureshi MA Encounter for screening examination for other mental health and behavioral disorders Imported from CDA: [facility] (15-Sep-19 at 02:05:15 PM) Transient ischemic attack (TIA) G45.9 (ICD-10-CM ) 03/15 Active 09/15 Lety Qureshi MA Transient cerebral ischemic attack, unspecified Imported from CDA: [facility] (15-Sep-19 at 02:05:05 PM) Suspected sleep apnea R29.818 (ICD-10-CM ) 04/27 Active 09/15 Lety Qureshi MA Other symptoms and signs involving the nervous system Imported from CDA: [facility] (15-Sep-19 at 02:05:05 PM) Strain of left quadriceps S76.112A (ICD-10-CM ) 11/05 Active 09/15 Lety Qureshi MA Strain of left quadriceps muscle, fascia and tendon, initial encounter Imported from [facility]A: [facility] (15-Sep-19 at 02:05:05 PM) Status post total left knee replacement Z96.652 (ICD-10-CM ) 05/08 Active 09/15 Lety Qureshi MA Presence of left artificial knee joint Imported from CDA: [facility] (15-Sep-19 at 02:05:05 PM) Snoring 51874391 (SNOMED CT) 05/16 Active 09/15 Lety Qureshi MA Snoring Imported from CDA: [facility] (15-Sep-19 at 02:05:05 PM) Sleep disturbance 91798391 (SNOMED CT) 05/16 Active 09/15 Lety Qureshi MA Dyssomnia Imported from CDA: [facility] (15-Sep-19 at 02:05:05 PM) Sleep apnea 94958245 (SNOMED CT) 05/16 Active 09/15 Lety Qureshi MA Sleep apnea Imported from CDA: [facility] (15-Sep-19 at 02:05:05 PM) Primary osteoarthrit is of left knee M17.12 (ICD-10-CM ) 01/18 Active 09/15 Lety Qureshi MA Unilateral primary osteoarthritis, left knee Imported from CDA: [facility] (15-Sep-19 at 02:05:05 PM) Preop cardiovascul ar exam Z01.810 (ICD-10-CM ) 03/15 Active 09/15 Lety Qureshi MA Encounter for preprocedural cardiovascular examination Imported from CDA: [facility] (15-Sep-19 at 02:05:05 PM) Persistent disorder of initiating or maintaining sleep 339405497 (SNOMED CT) 05/16 Active 09/15 Lety Qureshi MA Disorders of initiating and maintaining sleep Imported from CDA: [facility] (15-Sep-19 at 02:05:05 PM) Other chest pain R07.89 (ICD-10-CM ) 03/15 Active 09/15 Lety Qureshi MA Other chest pain Imported from CDA: [facility] (15-Sep-19 at 02:05:05 PM) Fatigue 26520561 (SNOMED CT) 05/16 Active 09/15 Lety Qureshi MA Fatigue Imported from CDA: [facility] (15-Sep-19 at 02:05:05 PM) Family history of premature coronary artery disease Z82.49 (ICD-10-CM ) 03/15 Active 09/15 Lety Qureshi MA Family history of ischemic heart disease and other diseases of the circulatory system Imported from CDA: [facility] (15-Sep-19 at 02:05:05 PM) Arthritis of left knee M17.12 (ICD-10-CM ) 03/26 Active 09/15 Lety Qureshi MA Unilateral primary osteoarthritis, left knee Imported from CDA: [facility] (15-Sep-19 at 02:05:05 PM) S/P partial colectomy Z90.49 (ICD-10-CM ) 11/20 Active 09/15 Lety Qureshi MA Acquired absence of other specified parts of digestive tract Imported from CDA: [email or web address] (15-Sep-19 at 02:04:52 PM) S/P exploratory laparotomy Z98.890 (ICD-10-CM ) 11/20 Active 09/15 Lety Qureshi MA Other specified postprocedural states Imported from [facility]A: [email or web address] (15-Sep-19 at 02:04:52 PM) Non morbid obesity, unspecified obesity type E66.9 (ICD-10-CM ) 01/07 Active 09/15 Lety Qureshi MA Obesity, unspecified Imported from CDA: [facility] 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 (15-Sep-19 at 02:04:52 PM) Essential hypertension 68645247 (SNOMED CT) 01/07 Active 09/15 Lety Qureshi MA Essential hypertension Imported from [facility]A: [email or web address] (15-Sep-19 at 02:04:52 PM) Depression 49764608 (SNOMED CT) 01/07 Active 09/15 Lety Qureshi MA Depressive disorder Imported from [facility]: [facility] (15-Sep-19 at 02:04:52 PM) Bowel perforation K63.1 (ICD-10-CM ) 11/20 Active 09/15 Lety Qureshi MA Perforation of intestine (nontraumatic) Imported from [facility]A: [facility] (15-Sep-19 at 02:04:52 PM) Medications Medication Instructions Start Date Stop Date Generic Name NDC Provider OXYCODONE HCL 5 MG TABS Take 1-2 tablet by mouth every six to eight hours as needed for pain oxycodone [id number] Brandon Eaton MD VALIUM 5 MG TABS 1 tablet by mouth every twelve hours as needed breakthrough muscle spasms breakthrough muscle spasms diazepam [id number] Brandon Eaton MD PREDNISONE 20 MG TABS Take 2 tablet by mouth once a day for 3 days, then 1.5 tab po daily x 3d, then 1 tab po daily x 3d then 0.5 po daily x 3d then stop prednisone [id number] Sola Gomez PA-C METHOCARBAMOL 750 MG TABS 1 tablet by mouth three times a day as needed muscle spasms muscle spasms methocarbamol 46973045669 Sola Gomez PA-C Adult Low Dose Aspirin 81 mg tablet,delayed release aspirin [id number] Carlota Singh MA ACETAMINOPHEN-IB UPROFEN 250-125 MG TABS ibuprofen-acetam inophen 80785818498 Carlota Singh MA CELEBREX 200 MG CAPS Take 1 capsule by mouth once a day celecoxib 87575066824 Sola Gomez PA-C Medications Administered No information available. Allergies, Adverse Reactions, Alerts Allergy Name Reaction Description Start Date Severity Statu s Provider DEWAYNE INHIBITORS Cough Mild Eliza Qureshi MA Results Date Name Value Unit Range Flag Description Lab Report: CBC W/O DIFF MPV 9.3 fL 7.0-11.5 Platelet gi n volume [Entitic volume] in Blood by [facility] PLATELETK/UL 311 10*3/uL 140-375 platelet count RDW 13.9 % 12.3-17.0 Erythrocyte distribution width [Ratio] by Automated count MCHC RBC 33.1 g/dL 32-36 mean corpusc ular hemoglobin concentration, RBC MCH 31.2 pg 27-33 MCH [Entitic mass] by Automated count MCV 94.1 fL 82-97 MCV [Entitic volume] by Automated count HCT 41.5 % 36-46 Hematocrit [V olume Fraction] of Blood by Automated count HGB 13.7 g/dL 12.0-15.2 Hemoglobin [Mass/volume] in Blood RBC M/UL 4.41 10*6/uL 3.80-5.[address] red blood count WBC CT BLOOD 7.8 10*3/uL 3.6-10.5 leukocy te count, blood Lab Report: PTT PTT 1 HR 27.1 Seconds 23.6-34.0 PTT 1 hour Lab Report: PROTIME INR 1.1 0.8-1.2 INR in Platel et poor plasma by Coagulation assay PT PATIENT 14.6 s 11.7-14.2 H Prothrom bin time (PT) Lab Report: BASIC METABOLIC PNL CALCIUM 9.4 mg/dL 8.5-10.4 Calcium [Moles/volume] in Serum or Plasma ANIONGAP 10 MEQ/L mmol/L 4-16 anion gap, serum CREATININE 0.73 mg/dL 0.60-1.20 Creatini ne [Mass/volume] in Serum or Plasma GLUCOSE SER 119 mg/dL 70-99 H Glucose [Mass/volume] in Serum or Plasma CO2 PLSM/SER 27 meq/L 21-31 carbon d ioxide, serum or plasma CL SERUM 102 meq/L 98-111 Chloride [Moles/volume] in Serum or Plasma K SERUM 3.4 meq/L 3.6-5.1 L Potassium [Moles/volume] in Serum or Plasma NA 139 meq/L 135-145 Sodium [Moles/volume] in Serum or Plasma BUN 16 mg/dL 8- Urea nitrogen [Mass/volume] in Serum or Plasma Lab Report: PATIENT ABO/RH ABO/RH O blood type wi th RH factor Plan of Care Type Date Detail Appointment 03:45 PM Brandon rahman MD, Pending order X-Ray Lumbar AP Lateral Pending order CT Lumbar withou t Contrast Pending order CT Lumbar withou t Contrast Pending order X-Ray Lumbar Fle xion/Extension Pending order X-Ray Lumbar Fle xion/Extension Procedures Code Procedure Name Date Entry Date [id number] Flu Shot Declined 3 Vital Signs Date Name Value Unit Description BMI (Body Mass Index) 34.75 kg/m2 Bod y Mass Index (Ratio) Height 62 [in_us] height E&M Weight Measured 190 [lb_av] weight E& M Weight Measured 190 [lb_av] weight E& M Immunizations No information available. Advance Directives No information available.
--- OUTSIDE RECORDS SUMMARY | 2025-05-02 13:45 | XMS_ITS | Clinical Summary ---
Author Organization [facility] [place] [address] Care Team Providers Care Accounts Receivable Analyst Name Role Phone Unavailable Primary Care Provider Unavailabl e Allergies Active Allergy Reactions Criticality Noted Date Comments Lisinopril Cough High 12/07/2024 Medications aspirin (ASA EC) 81 mg enteric-coated tablet Take by mouth daily Active celecoxib (CELEBREX) 200 mg capsule Take 200 mg by mouth daily 11/04/2024 Active phentermine (ADIPEX-P) 37.5 mg capsule Take 37.5 mg by mouth daily Active cyanocobalamin (VITAMIN B12) 1,000 mcg tablet Take 1,000 mcg by mouth daily Active amLODIPine (NORVASC) 10 mg tabletIndication s:hypertension Take 1 Tab by mouth daily 90 Tab 3 12/20/2024 Active Active Problems Patient Care Coordination No te Formatting of this note migh t be different from the original. Hypertension, TIA Problem Noted Date Diagnosed Date Strain of left quadriceps 09/04/2020 Sleep apnea 05/16/2020 Fatigue 05/16/2020 Sleep disturbance 05/16/2020 Snoring 05/16/2020 Persistent disorder of initiating or maintaining sleep 05/16/2020 Status post total left knee replacement 05/08/20 20 Suspected sleep apnea 04/27/2020 Arthritis of left knee 03/26/2020 Transient ischemic attack (TIA) 03/15/2020 Preop cardiovascular exam 03/15/2020 Other chest pain 03/15/2020 Family history of premature coronary artery dise ase 03/15/2020 Primary osteoarthritis of left knee 01/19/2020 Family History Medical History Relation Comments Heart Disease Father Anesthesia Problems Neg Hx Relation Status Comments Father Social History Tobacco Use Types Packs/Day Years Used Date Smoking Tobacco: Former Cigarettes 2 2009 Smokeless Tobacco: Never Tobacco Cessation:Counseling Given: Not Answered Comments:a pack a year for 2 years Alcohol Use Standard Drinks/Week Comments Not Currently 0 (1 standard drink = 0.6 oz pur e alcohol) Humiliation, Afraid, Rape, and Kick questionnair e Answer Date Recorded Within the last year, have y ou been afraid of your partner or ex-partner? No 03/26/2020 Within the last year, have y ou been humiliated or emotionally abused in other ways by your partner or ex-partner? No Within the last year, have y ou been kicked, hit, slapped, or otherwise physically hurt by your partner or ex-partner? No 03/26/2020 Within the last year, have y ou been raped or forced to have any kind of sexual activity by your partner or ex-partner? No 03/26/2020 Social Connection and Isolation Panel Answer Date Recorded In a typical week, how many times do you talk on the phone with family, friends, or neighbors? Three times a week 03/26/2020 How often do you get togethe r with friends or relatives? Once a week 03/26/2020 Attends Voodoo Services Not on file 03/26 Do you belong to any clubs o r organizations such as sabianism groups, unions, fraternal or athletic groups, or school groups? No 03/26/2020 How often do you attend meet ings of the clubs or organizations you belong to? Never 03/26/2020 Are you , , di vorced, , never , or living with a partner? 03/26/2020 AUDIT-C Answer Date Recorded Q1: How often do you have a drink containing alc ohol? Monthly or less 03/07/2020 Q2: How many drinks containi ng alcohol do you have on a typical day when you are drinking? 1 or 2 03/07/2020 Q3: How often do you have si x or more drinks on one occasion? Never 03/07/2020 Overall Financial Resource Strain (CARDIA) Answe r Date Recorded How hard is it for you to pa y for the very basics like food, housing, medical care, and heating? Not hard at all 03/26/2020 PHQ-2 Answer Date Recorded SCORE PHQ 2 4 05/16/2020 [facility]ational Stress Questionnaire Answer Date Recorded Do you feel stress - tense, restless, nervous, or anxious, or unable to sleep at night because your mind is troubled all the time - these days? To some extent 03/26/2020 Exercise Vital Sign Answer Date Recorde d On average, how many days pe r week do you engage in moderate to strenuous exercise (like a brisk walk)? 2 days 03/26/2020 On average, how many minutes do you engage in exercise at this level? 20 min 03/26/2020 Hunger Vital Sign Answer Date Recorded Within the past 12 months, y ou worried that your food would run out before you got the money to buy more. Never true 03/26/20 20 Within the past 12 months, t he food you bought just didn't last and you didn't have money to get more. Never true 03/26/2020 PRAPARE - Transportation Answer Date Re corded In the past 12 months, has l ack of transportation kept you from medical appointments or from getting medications? No 03/14 In the past 12 months, has l ack of transportation kept you from meetings, work, or from getting things needed for daily living? No 03/26/2020 Education Answer Date Recorded What is the highest level of school you have completed or the highest degree you have received? High school graduate 03/26/2020 Comments No Sex and Gender Information Value Date Recorded Sex Assigned at Not on file Legal Sex Female 10:42 AM EDT Gender Identity Not on file Sexual Orientation Not on file Last Filed Vital Signs Vital Sign Reading Time Taken Comments Blood Pressure 138/84 12/07/2024 10:00 AM EDT Pulse 85 12/07/2024 10:00 AM EDT Temperature 36.3 C (97.3 F) 04/27/2020 11:19 AM EDT Respiratory Rate 16 09/04/2020 1:12 PM EST Oxygen Saturation 97% 05/16/2020 1:00 PM EDT Inhaled Oxygen Concentration - - Weight 87.5 kg (193 lb) 12/07/2024 10:00 AM EDT Height 154.9 cm (5' 1 ) 12/07/2024 10:00 AM EDT Body Mass Index 36.47 12/07/2024 10:00 AM EDT Plan of Treatment Health Maintenance Due Date Last Done Comments CT Colonography 1970 Colonoscopy 1970 Colorectal Cancer Screening 1970 FIT-DNA (Cologuard) 1970 FOBT/FIT 1970 HIV Screening 1985 Breast Cancer Screening 01/31/1988 Hepatitis C Screening 01/31/1988 DTaP/Tdap/Td Vaccines (1 - Tdap) 1989 Hepatitis B Vaccines (1 of 3 - 19+ 3-dose series) 1989 Pneumococcal Vaccines: 50+ Years (1 of 1 - PCV) 01/31/2020 Zoster Vaccines (1 of 2) 01/31/2020 Diabetes Screening 03/27/2023 03/27/2020, 03/15/2020 COVID-19 Vaccines (2 - season) 2024 04/17/2021 Influenza Vaccines 04/14/2025 HIB Vaccines Aged Out No longer eligi ble based on patient's age to complete this topic HISTORICAL VIEW: MMR Vaccines Discontinued HISTORICAL VIEW: Varicella Vaccines Discontinued HPV Vaccines Aged Out No longer eligi ble based on patient's age to complete this topic Hepatitis A Vaccines Aged Out No long er eligible based on patient's age to complete this topic IPV Vaccines Aged Out No longer eligi ble based on patient's age to complete this topic Meningococcal Vaccines Aged Out No lo nger eligible based on patient's age to complete this topic Rotavirus Vaccines Aged Out No longer eligible based on patient's age to complete this topic Medical Devices Implanted Type Area Clinical Review Specialist Device Identifier Shelf Expiration Date Model / Serial / Lot Cmnt Bone 40g Smartset Hv Latxfree [id number] - [id number] Implanted:Qty: 2 on 03/26/2020 by Jamil Bartlett II, MD at [facility] Left: Knee [employer] 06/13/2021 [id number] / / [id number] Comp Pat 32 Thk8 Tri Peg All Latxfree Advance [id number] - [id number] Implanted:Qty: 1 on 03/26/2020 by Jamil Bartlett II, MD at [facility] Left: Knee [employer] 12/12/2027 [id number] / / [id number] Bsplt Tib Sz 4 L Geraldine Fisheries Officer Tejinder Latxfree Evolution?Mp [id number] - [id number] Implanted:Qty: 1 on 03/26/2020 by Jamil Bartlett II, MD at [facility] Left: Knee [employer] 07/01/2027 [id number] / / [id number] Comp Fem Sz 5 L Kne Fisheries Officer Geraldine Cr Latxfree Evolution?Mp [id number] - [id number] Implanted:Qty: 1 on 03/26/2020 by Jamil Bartlett II, MD at [facility] Left: Knee [employer] 11/14/2027 [id number] / / [id number] Insrt Tib Sz 4+ Thk17 L Knee Latxfree Evolution?Mp [id number] - [id number] Implanted:Qty: 1 on 03/26/2020 by Jamil Bartlett II, MD at [facility] Left: Knee [employer] 10/01/2026 [id number] / / [id number] Procedures Procedure Name Priority Date/Time Associated Diagnosis Comments BASIC METABOLIC PANEL Routine 03/27/2020 5:14 AM EDT from Last 3 Months or Most Recently Relevant to Health Maintenance Results * (ABNORMAL) BASIC METABOLIC PANEL (03/27/2020 5:14 AM EDT) Sodium 134(L) 135 - 148 mEq/L 03/27/2020 6:54 AM EDT [facility] Potassium 4.2 3.4 - 5.3 mEq/L 03/27/2020 6:54 AM EDT [facility] Chloride 99 96 - 110 mEq/L 03/27/2020 6:54 AM EDT [facility] Carbon Dioxide 23 19 - 32 mEq/L 03/27/2020 6:54 AM EDT [facility] BUN 16 3 - 29 mg/dL 03/27/2020 6:54 AM EDT [facility] Creatinine 0.5 0.5 - 1.2 mg/dL 03/27/2020 6:54 AM EDT [facility] Glucose 101(H) 70 - 99 mg/dL 03/27/2020 6:54 AM EDT [facility] Calcium 8.1(L) 8.5 - 10.5 mg/dL 03/27/2020 6:54 AM EDT [facility] Anion Gap 12 5 - 15 03/27/2020 6:54 AM EDT [facility] BUN/CREAT Ratio 32(H) 7 - 25 0 6:54 AM EDT [facility] Estimated GFR 113 >=60 mL/min/1.7 3m*2 03/27/2020 6:54 AM EDT [facility] Blood specimen (specimen) (Venous.) Venipuncture / Unknown 03/27/2020 5:14 AM EDT 03/27/2020 6:32 AM EDT Jamil Bartlett II, MD LAB - BLOOD [place] [address] from Last 3 Months or Most Recently Relevant to Health Maintenance Insurance [employer] [place]-OUT OF [facility] [employer] [place]-OUT OF [facility] ANTHEM BLUE CROSS-OUT OF AREA BLUE CROSS - OUT OF AREA Advance Directives For more information, please contact: [phone] * Total Support (Latest Code Status on File) Date Activated Date Inactivated Comments 03/26/2020 1:41 PM 03/27/2020 4:06 PM
--- OUTSIDE RECORDS SUMMARY | 2025-05-02 13:45 | XMS_ITS | Encounter Summary ---
Author Organization [facility] Address [address] [place] [address] Phone Care Team Providers Care Propulsion Systems Engineer Name Role Phone Pcp, None Primary Care Provider [phone] Encounter Details Date Type Department Care Team (Late st Contact Info) Description 03/21/2025 Telephone [facility] Heart & Vascular [place] - Vascular Surgery [facility] [address] [place] [address] [place] [address] [place], [place] [id number] Social History Tobacco Use Types Packs/Day Years [...] Entry Date Author No 03/07/2025 11:22 AM Coretta Whitney Registered Nurse documented in this encounter Miscellaneous Notes * Telephone Encounter - Renae Pollard - 03/21/2025 3:23 PM EDT CALL RETURN I HAD ALREADY TALKED WITH HER * Telephone Encounter - Jazmín Caraballo - 03/21/2025 2:59 PM EDT Patient is returning a call from Renae regarding the surgery with Dr Monsalve and Dr Eaton this 03-23-25. Call back at [phone] documented in this encounter Plan of Treatment Not on file documented as of this encounter Visit Diagnoses Not on filedocumented in this encounter Care Teams Propulsion Systems Engineer Relationship Specialty Start Date End Date Pcp, Jennifer, PCP - General Internal Medicine 10/17/13 03/22/25 documented as of this encounter
--- OUTSIDE RECORDS SUMMARY | 2025-05-02 13:46 | XMS_ITS | Encounter Summary ---
Author Organization [facility] Address [address] [place] [address] Phone Care Team Providers Care Magneto Electrician Name Role Phone Pcp, None Primary Care Provider [phone] Esdras Holland MD Primary Care Provider [phone] Encounter Details Date Type Department Care Team (Late st Contact Info) Description 03/15/2025 Telephone [facility] Heart & Vascular [place] - Vascular Surgery [facility] [address] [place] [address] [place] [address] [place] [address] Social History Tobacco Use Types Packs/Day Years [...] * Telephone Encounter - Renae Pollard - 03/15/2025 10:21 AM EDT Lvm to call me back to confirm ABD past SX, I have hysterectomy, gallbladder and umbilical hernia repair listed. documented in this encounter Plan of Treatment Not on file documented as of this encounter Visit Diagnoses Not on filedocumented in this encounter Care Teams Magneto Electrician Relationship Specialty Start Date End Date Pcp, MD Jennifer PCP - General Internal Medicine 10/17/13 03/22/25 Esdras Holland MD [facility] [address] [place] [address] PCP - General Family Medicine 03/23/25 documented as of this encounter
--- OUTSIDE RECORDS SUMMARY | 2025-05-02 13:46 | XMS_ITS | Encounter Summary ---
Author Organization [facility] Address [address] [place] [address] Phone Care Team Providers Care Sales Operations Analyst Name Role Phone Pcp, None Primary Care Provider [phone] Encounter Details Date Type Department Care Team (Late st Contact Info) Description 03/14/2025 Telephone [facility] Heart & Vascular [place] - Vascular Surgery [facility] [address] [place] [address] [place] [address] [place], [place] [id number] Social History Tobacco Use Types Packs/Day Years [...] Telephone Encounter - Renae Pollard - 03/15/2025 10:17 AM EDT Lvm to call me back, * Telephone Encounter - Gertrudis Nieto - 03/14/2025 2:59 PM EDT New spine patient ref'd by Dr. Eaton. Surgery scheduled for 03/23/25, L5,S1. She is asking about abedside visit. MRI & CT both done at [facility] [place], [place] approximately 6 mths ago. Please call pt at [phone]. documented in this encounter Plan of Treatment Not on file documented as of this encounter Visit Diagnoses Not on filedocumented in this encounter Care Teams Sales Operations Analyst Relationship Specialty Start Date End Date Pcp, None, PCP - General Internal Medicine 10/17/13 03/22/25 documented as of this encounter
--- OUTSIDE RECORDS SUMMARY | 2025-05-02 13:46 | XMS_ITS | Referral Summary ---
Author Organization [facility] Address [address] [place] [address] Phone Care Team Providers Care Vocational Case Manager Name Role Phone Esdras Holland MD Primary Care Provider [phone] Encounters Date Type Department Care Team Description 03/23/2025 5:09 AM EDT - 03/24/2025 1:53 PM EDT Hospital Encounter [id number] [address] [place] [address] Brandon Eaton MD Spondylolisthesis, lumbar region [M43.16] Discharge Disposition: Home or Self Care 03/23/2025 7:30 AM EDT - 03/23/2025 10:37 AM EDT Surgery [facility] [address] [place] [address] Brandon Eaton MD L5-S1 ANTERIOR INTERBODY FUSION, 03/23/2025 7:34 AM EDT Anesthesia Event [facility] [address] [place] [address] Ambika Mehta MD Ramstetter, Lisa A, Registered Nurse 03/21/2025 Telephone [facility] Heart & Vascular [place] - Vascular Surgery - [facility] [address] [place] [address] Breezy Monsalve MD 03/15/2025 Telephone [facility] & Vascular [facility] Vascular Surgery [facility] [address] [place] [address] Breezy Monsalve MD 03/14/2025 Telephone [facility] Vascular [facility] Vascular [facility] [address] [place] [address] Breezy Monsalve MD 03/07/2025 11:00 AM EDT Pre-Admission Testing [facility] [address] [place] [id number] Brandon Eaton MD Spondylolisthesis of lumbar region from Last 3 Months Allergies Active Allergy Reactions Criticality Noted Date Comments Bayron Inhibitors Other (See Comments) Low 05/12/2016 Cause coughing Cause coughing Medications phentermine (ADIPEX-P) 37.5 MG TABS Take 37.5 mg by mouth every morning before breakfast. Active aspirin 81 MG TBEC Take by mouth daily. Active albuterol 108 (90 Base) mcg/puff inhalerIndicati ons:Bronchospas m,Reversible Obstructive Airway Disease Use 2 puffs every 4 (four) hours as needed. Indications: Spasm of Lung Air Passages, Reversible Disease of Blockage in Breathing Passages 8 g 2 Active amLODIPine (NORVASC) 10 MG TABS Take 10 mg by mouth daily. Active celecoxib (CELEBREX) 200 MG CAPS Take 200 mg by mouth daily. Active hydrOXYzine HCl (ATARAX) 50 MG TABS Take 50 mg by mouth nightly as needed. Active Multiple Vitamins-Minera ls (HAIR SKIN AND NAILS FORMULA PO) Take by mouth. Act emily ibuprofen (ADVIL,MOTRIN) 200 mg tablet Take 200 mg by mouth every 6 (six) hours as needed for Mild Pain (1-3). Active vitamin B-12 (CYANOCOBALAMIN ) 1000 MCG TABS Take 1,000 mcg by mouth daily. Active acetaminophen (TYLENOL) 325 mg tablet Take 2 tablets by mouth every 4 (four) hours as needed for Fever (T > 100.4 or MD spec.) or Mild Pain (1-3). 5 Active bisacodyl (DULCOLAX) 10 MG SUPPIndications :Constipation Unwrap and insert 1 suppository into the rectum daily as needed for Constipation (For use with Bowel Guildeline.). Indications: Constipation Active senna (SENOKOT) 8.6 MG TABSIndications :Constipation Take 2 tablets by mouth daily. Indications: Constipation Active polyethylene glycol (MIRALAX) 17 g PACK Mix the contents of 17 g as directed and take daily. Active methocarbamol (ROBAXIN) 750 MG TABS Take 1 tablet by mouth every 6 (six) hours for 10 days. 40 tablet 5 025 Active Problems Problem Noted Date Diagnosed Date Spondylolisthesis of lumbar region 03/24/2025 Spondylolisthesis, lumbar region 03/24/2025 Chronic sinusitis 10/24/2013 Allergic rhinitis 10/24/2013 Social History Tobacco Use Types Packs/Day Years [...] Mass Index 34.75 03/23/2025 5:55 AM EDT Functional Status * Are you deaf or do you have serious difficulty hearing? Answer Date of Assessment Author No 03/23/2025 5:45 AM EDT Valerio Mcdonald, Registered Nurse * Are you blind or do you have serious difficulty seeing, even when wearing glasses? Answer Date of Assessment Author No 03/23/2025 5:45 AM EDValerio White Registered Nurse * Do you have serious difficulty walking or climbing stairs? (5 years old or older) Answer Date of Assessment Author No 03/23/2025 5:45 AM EDValerio White, Registered Nurse * Do you have difficulty dressing or bathing? (5 years old or older) Answer Date of Assessment Author No 03/23/2025 5:45 AM EDValerio White Registered Nurse * Because of a physical, mental, or emotional condition, do you have difficulty doing errands alone such as visiting a doctor???s office or shopping? (15 years old or older) Answer Date of Assessment Author No 03/23/2025 5:45 AM EDValerio White Registered Nurse Mental Status * Because of a physical, mental, or emotional condition, do you have serious difficulty concentrating, remembering, or making decisions? (5 years old or older) Answer Entry Date Author No 03/23/2025 5:45 AM EDT Grenz, Ke lly, Registered Nurse Plan of Treatment Not on file Medical Devices Implanted Type Area Amusement Park Ride Mechanic Device Identifier Shelf Expiration Date Model / Serial / Lot Graft Tissue Osteocel Pro - [id number] Implanted:Qty : 1 on 03/23/2025 by Brandon Eaton MD at [facility] Graft N/A: Spine Lumbar [employer] SU[employer]PLIES 08/07/2029 [id number] / [id number] / Graft Tissue Osteocel Pro Sm - [id number] Implanted:Qty : 1 on 03/23/2025 by Brandon Eaton MD at [facility] Graft N/A: Spine Lumbar [employer] SUPPLIES 08/07/2029 [id number] / [id number] / Screws,All - [id number] Implanted:Qty : 2 on 03/23/2025 by Brandon Eaton MD at [facility] N/A: Spine Lumbar [employer] [id number] / / Description:MODULUS ALIF 6.0 X 20mm BOLT Implant,Cage All #1 - [id number] Implanted:Qty : 1 on 03/23/2025 by Brandon Eaton MD at [facility] N/A: Spine Lumbar [employer] [id number] / / Description:MODULUS ALIF 8 x 34 x 24mm 15 degree Screws,All 2 - [id number] Implanted:Qty : 4 on 03/23/2025 by Brandon Eaton MD at [facility] N/A: Spine Lumbar [employer] [id number] / / Description:RELINE LOCK SCRE W Screws,All 3 - [id number] Implanted:Qty : 2 on 03/23/2025 by Brandon Eaton MD at [facility] N/A: Spine Lumbar [employer] [id number] / / Description:RELINE MAS SCREW S 6.5 x 45 Screws,All 4 - [id number] Implanted:Qty : 2 on 03/23/2025 by Brandon Eaton MD at [facility] N/A: Spine Lumbar [employer] [id number] / / Description:RELINE MAS SCREW 7.5 x 40 Ollie/Nail,Any - [id number] Implanted:Qty : 2 on 03/23/2025 by Brandon Eaton MD at [facility] N/A: Spine Lumbar [employer] [id number] / / Description:BLUE LAU RO D 5.5 x 35 Allograft - [id number] Implanted:Qty : 1 on 03/23/2025 by Brandon Eaton MD at [facility] N/A: Spine Lumbar [employer] 03/13/2027 [id number] / / [id number] Description:I FACTOR BONE GR AFT 2.5cc Procedures Procedure Name Priority Date/Time Associated Diagnosis [...] , lumbar region Lumbar stenosis Special Needs VANESSA TABLE, 6500 BED, CIOS W/ PULSE, EVOKES, SSEP, EMG, MEP, NUVASIVE, 23 HOUR OBSERVATION FUSION SPINE ANTERIOR (ALIF) W/WO INSTRUMENTS W ILIAC CREST BONE GRAFT 03/23/2025 7:30 AM EDT Spondylolisthesis , lumbar region Lumbar stenosis Special Needs VANESSA TABLE, 6500 BED, CIOS W/ PULSE, EVOKES, SSEP, EMG, MEP, NUVASIVE, 23 HOUR OBSERVATION ABO/RH STAT 03/23/2025 6:00 AM EDT P.A.T. TYPE & SCREEN Routine 03/07/2025 11:30 AM EDT Spondylolisthesis of lumbar region BAMP (NA,K,CL,CO2,GLU,B UN,CREAT,CA) Routine 03/07/2025 11:30 AM EDT Spondylolisthesis of lumbar region PTT Routine 03/07/2025 11:30 AM EDT Spondylolisthesis of lumbar region PROTIME & INR Routine 03/07/2025 11:30 AM EDT Spondylolisthesis of lumbar region CBC Routine 03/07/2025 11:30 AM EDT Spondylolisthesis of lumbar region from Last 3 Months Results * CT LUMBAR SPINE WO CONTRAST [...] the content of this report, please contact [facility] radiology by calling [phone] FINDINGS: ALIGNMENT: No abnormal curvature BONES: Unremarkable. [...] about the content of this report, pleasecontact [facility] radiology by calling [phone] FINDINGS: ALIGNMENT: No abnormal curvature BONES: Unremarkable. [...] compatible with surgical approach us Sola Gomez PADestin CT Final Result * FL OR XRAY FLUORO SUPPORT (03/23/2025 10:00 AM EDT) Narrative Vane Sidhu ARRT - 03/23/2025 10:00 AM EDT This procedure has been auto-finalized, and is for reference only. As such, there is no formally dictated Radiant result report. If an Ambulatory procedure order, results may be included in either office, or H&P notes. Brandon Eaton MD RAD Final Resul t * XR [...] the content of this report, please contact [facility] radiology by calling [phone] FINDINGS: Spinal fixation system in grossly satisfactory position. No evidence of retroperitoneal hematoma. OTHER: None Procedure Note Hien Camara MD - 03/23/2025 HISTORY: L5-S1 POST COMPARISON: None TECHNIQUE: Technically limited portable intraoperative CT scan FLUOROSCOPY TIME: 37 seconds NOTE: If there are questions about the content of this report, pleasecontact [facility]ology by calling [phone] FINDINGS: Spinal fixation system in grossly satisfactory position. No evidence ofretroperitoneal hematoma. OTHER: None IMPRESSION No unexpected findings on limited intraoperative CT scan Brandon Eaton MD RAD Final Resul t * XR [...] the content of this report, please contact [facility] radiology by calling [phone] FINDINGS: 8 intraoperative fluoroscopic images of the lumbosacral junction provided during discectomy. Anterolisthesis of L5 on S1 measures 17 mm Fluoroscopy time 30 seconds Procedure Note Hien Camara MD - 03/23/2025 HISTORY: L5-S1 ANT COMPARISON: CT from 08/01/2021 NOTE: If there are questions about thecontent of this report, please contact [facility] radiology by [phone] FINDINGS: 8 intraoperative fluoroscopic images of the lumbosacral junction providedduring discectomy. Anterolisthesis of L5 on S1 measures 17 mm Fluoroscopy time 30 seconds IMPRESSION Known L5 spondylolysis with grade 2 spondylolisthesis Status post recent discectomy and spacer placement L5-S1 Brandon Eaton MD RAD Final Resul t * ABO/Rh (03/23/2025 6:00 AM EDT) ABO/RH(D) O POSITIVE BLOOD BAN K GSH Comment:Tested at [facility] [address] [address] Blood 03/23/2025 6:00 AM EDT 03/23/2025 6:13 AM EDT Brandon Eatno MD BLOOD BANK TEST ORDERABLES Final Result Performing Organization Address [facility] Co de Phone Number [facility] [id number] [place] [address] [address] [address] * (ABNORMAL) PROTIME & INR (03/07/2025 11:30 AM EDT) PROTIME 14.6(H) 11.7 - 14.2 Seconds CHEMISTRY HEMATOLOGY INR 1.1 0.8 - 1.2 CHEMISTRY HEMATOLOGY Comment: INR THERAPEUTIC RANGES: ROUTINE ANTICOAGULATION: 2.0 TO 3.0 Tested at [facility] [address] [facility] [address] Whole Blood 03/07/2025 11:3 0 AM EDT 03/07/2025 11:37 AM EDT Brandon Eaton MD LAB BLOOD ORDERABLES Final Result Performing Organization Address [facility] Co de Phone Number [facility] [address] [place] [address] CHEMISTRY HEMATOLOGY [address] [place] [address] * PTT (03/07/2025 11:30 AM EDT) [facility] PTT 27.1 23.6 - 34.0 Seconds CHEMISTRY HEMATOLOGY Comment:Tested at [address] [address] Whole Blood 03/07/2025 11:3 0 AM EDT 03/07/2025 11:37 AM EDT Brandon Eaton MD LAB BLOOD ORDERABLES Final Result Performing Organization Address [facility] Co de Phone Number [facility] [address] [place] [phone] CHEMISTRY HEMATOLOGY [address] [place] [phone] * (ABNORMAL) BAMP (NA,K,CL,CO2,GLU,BUN,CREAT,CA) (03/07/2025 11:30 AM EDT) [facility] BLD UREA NITROGEN 16 8 - 26 [...] recommended by the National Kidney Foundation - [employer] [employer] of Nephrology Task Force. Tested at [address] [address] Whole Blood 03/07/2025 11:3 0 AM EDT 03/07/2025 11:37 AM EDT us Brandon Eaton MD LAB BLOOD ORDERABLES Final Result [facility] [address] [place] [address] CHEMISTRY HEMATOLOGY [address] [place] [address] * CBC (03/07/2025 11:30 AM EDT) [facility] WBC 7.8 3.6 - 10.5 THOU/mcL CHEMISTRY [...] - 11.5 fL CHEMISTRY HEMATOLOGY Comment:Tested at [address] [address] Whole Blood 03/07/2025 11:3 0 AM EDT 03/07/2025 11:37 AM EDT Bradnon Eaton MD LAB BLOOD ORDERABLES Final Result Performing Organization Address [facility] de Phone Number [facility] [address] [place] [phone] CHEMISTRY HEMATOLOGY [address] [place] [phone] * P.A.T. TYPE & SCREEN (03/07/2025 11:30 AM EDT) EXPIRATION AT 23:59 03/26/2025,23 59 BLOOD BANK GSH EXPIRATION AT 23:59 Tested at [address] [address] BLOOD BANK GSH ABO/RH(D) O POSITIVE BLOOD BAN K GSH ANTIBODY SCREEN NEGATIVE BLOOD BANK GSH ANTIBODY SCREEN Tested at [address] [address] BLOOD BANK GSH Whole Blood 03/07/2025 11:3 0 AM EDT 03/07/2025 11:37 AM EDT Brandon Eaton MD BLOOD BANK TEST ORDERABLES Final Result Performing Organization Address [facility] de Phone Number [facility] [address] [place] [phone] BLOOD BANK GSH [address] [place] [phone] from Last 3 Months Insurance [facility] ALL OTHERS NOT MEDICARE Care Teams Vocational Case Manager Relationship Specialty Start Date End Date Esdras Holland MD [facility] [address] [place] [address] PCP - General Family Medicine 03/23/25
--- OUTSIDE RECORDS SUMMARY | 2025-05-02 13:46 | XMS_ITS | Clinical Summary ---
Author Organization [facility] Address [address] [place] [address] Phone Care Team Providers Care Medical Biller Name Role Phone Unavailable Primary Care Provider Unavailabl e Allergies Active Allergy Reactions Criticality Noted Date Comments Bayron Inhibitors Cough 05/12/2016 Medications metoprolol succinate (TOPROL-XL) 25 mg Oral Tablet Sustained Release 24 hrIndications:Ess ential hypertension Take 1 Tab by mouth daily. 30 Tab 6 01/11/2018 Active amLODIPine (NORVASC) 5 mg Oral TabletIndications :Essential hypertension Take 1 Tab by mouth daily. 90 Tab 3 01/11/2018 Active Active Problems Problem Noted Date Diagnosed Date Nonintractable headache 01/11/2018 Assessment & Plan (01/11/2018 7:06 PM EDT): Decrease sodium and caffeine and start toprol xl. Obesity, Class II, BMI 35-39.9 05/12/2016 Overview (06/15/2017): Wt Readings from Last 3 Encounters: 06/15/17 196 lb 3.2 oz (89 kg) 05/12/16 205 lb (93 kg) 04/05/15 184 lb (83.5 kg) Diet and exercise. Exercise counseling 05/12/2016 Screening for depression 05/12/2016 Overview (06/15/2017): Depression Screening: In the past two weeks, how often have you felt down, depressed, or hopeless? None Have you felt little interest or pleasure in doing things? no Alcohol screening 05/12/2016 Overview (06/15/2017): Does not drink alcohol Essential hypertension 02/19/2015 Overview (01/11/2018): BP Readings from Last 3 Encounters: 01/11/18 (!) 158/104 06/15/17 (!) 152/98 05/12/16 (!) 158/98 Assessment & Plan (01/11/2018 7:07 PM EDT): Continue amlodipine and start toprol xl on 01/11/18 Assessment & Plan (06/15/2017 2:33 PM EDT): Re ordered amlodipine and HCTZ. Insomnia 01/18/2015 Overview (06/15/2017): Not as well controlled off of trazadone Assessment & Plan (06/15/2017 2:34 PM EDT): Reorder trazadone Immunizations Immunization Administration Dates Next Due Tdap 04/14/2009 Surgical History Surgery Date Site/Laterality Comments HERNIA REPAIR TUBAL LIGATION APPENDECTOMY SECTION ABDOMEN SURGERY secondary to complication with hysterectomy HYSTERECTOMY secondary to bleeding normal PAP's prior to hyserectomy THYROIDECTOMY, PARTIAL CHOLECYSTECTOMY Medical History Medical History Date Comments HTN (hypertension) Family History Medical History Relation Name Comments Breast Cancer Neg Hx Colon Cancer Neg Hx Social History Tobacco Use Types Packs/Day Years Used Date Smoking Tobacco: Former Smokeless Tobacco: Never Tobacco Cessation:Counseling Given: No Comments:about 1 cigarette per year Alcohol Use Standard Drinks/Week Comments No 0 (1 standard drink = 0.6 oz pur e alcohol) Comments No Sex and Gender Information Value Date Recorded Sex Assigned at Not on file Legal Sex Female 9:25 PM EST Gender Identity Not on file Sexual Orientation Not on file Obstetrics History Para Term AB IAB SAB Ectopic Multiple Livin g Live Births 8 8 Date Outcome GA Total Labor Labor/2nd/3rd Weight Sex Type Anes PTL Loyda A1 A5 Name Clin Para Para Para Para Para Para Para Para Last Filed Vital Signs Vital Sign Reading Time Taken Comments Blood Pressure 151/86 04/28/2024 10:08 PM EDT Pulse 72 04/28/2024 10:08 PM EDT Temperature 36.6 C (97.9 F) 04/28/2024 6:56 PM EDT Respiratory Rate 14 04/28/2024 10:08 PM EDT Oxygen Saturation 100% 04/28/2024 10:08 PM EDT Inhaled Oxygen Concentration - - Weight 90.7 kg (200 lb) 04/28/2024 6:56 PM EDT Height 157.5 cm (5' 2 ) 04/28/2024 6:56 PM EDT Body Mass Index 36.58 04/28/2024 6:56 PM EDT Plan of Treatment Health Maintenance Due Date Last Done Comments Hepatitis B Vaccine (1 of 3 - 19+ 3-dose series) 1989 HPV/Pap Cotest 01/31/2000 Breast Cancer Screening 2010 Cologuard 2015 FIT 2015 Sigmoidoscopy 2015 Virtual Colonography 2015 Annual Wellness Exam 01/19/2016 01/18/2015 Cervical Cancer Screening 01/18/2018 Pap Smear 01/18/2018 01/18/2015 (Declined), 12/31/2010 DTaP/TDaP/Td (2 - Td or Tdap) 04/14/2019 04/14/2009 Pneumococcal Vaccine 50+ (2 of 2 - PCV) 01/31/2020 11/12/2009 Zoster (1 of 2) 01/31/2020 COVID-19 Vaccine (1 - 2023-2 5 season) 2024 Influenza Vaccine (#1) 2025 7 (Declined) Colon Cancer Screening 01/20/2028 Colonoscopy 01/20/2028 01/19/2018 Meningococcal B Vaccine Aged Out No l onger eligible based on patient's age to complete this topic Goals Goal Patient Goal Type Associated Problems Recent Progress Patient-Stated? Author Blood Pressure < 140/90 Blood Pressure 151/86(2023 10:08 PM EDT) No Sharlene Dudley CMA Maintain a healthy diet, exercise regularly and maintain an ideal body weight General No Sharlene Dudley CMA Stay Tobacco Free Lifestyle No Sharlene Dudley CMA Insurance [employer] PPO AN[employer]SAGE PPO
--- OUTSIDE RECORDS SUMMARY | 2025-05-02 13:46 | XMS_ITS | Clinical Summary ---
Author Organization [facility] Address [address] [place] [address] Phone Care Team Providers Care Trailer Mechanic Name Role Phone Esdras Holland MD Primary Care Provider [phone] Allergies Active Allergy Reactions Criticality Noted Date [...] or MD spec.) or Mild Pain (1-3). Active bisacodyl (DULCOLAX) 10 MG SUPPIndications :Constipation [...] (six) hours for 10 days. 40 tablet 025 Active Problems Problem Noted Date Diagnosed Date Spondylolisthesis of lumbar region 03/24/2025 Spondylolisthesis, lumbar region 03/24/2025 Chronic sinusitis 10/24/2013 Allergic rhinitis 10/24/2013 Encounters Date Type Department Care Team Description 03/23/2025 7:34 AM EDT Anesthesia Event [facility] [address] [place] [address] Ambika Mehta MD Ramstetter, Lisa A, Registered Nurse 03/23/2025 7:30 AM EDT - 03/23/2025 10:37 AM EDT Surgery [facility] [address] [place] [address] Brandon Eaton MD L5-S1 ANTERIOR INTERBODY FUSION, 03/23/2025 5:09 AM EDT - 03/24/2025 1:53 PM EDT Hospital Encounter [id number] [address] [place] [address] Brandon Eaton MD Spondylolisthesis, lumbar region [M43.16] Discharge Disposition: Home or Self Care 03/21/2025 Telephone [facility] Vascular [facility] Vascular Surgery [facility] [address] [place] [address] Breezy Monsalve MD 03/15/2025 Telephone [facility] Vascular [facility] [address] [place] [address] Breezy Monsalve MD 03/14/2025 Telephone [facility] Vascular [facility] Vascular [facility] [address] [place] [address] Breezy Monsalve MD 03/07/2025 11:00 AM EDT Pre-Admission Testing [facility] [address] [facility] [place] [id number] Brandon Eaton MD Spondylolisthesis of lumbar region from Last 3 Months Social History Tobacco Use Types Packs/Day Years [...] Mass Index 34.75 03/23/2025 5:55 AM EDT Plan of Treatment Health Maintenance Due Date Last Done Comments Pap Screening 1991 Mammogram Screening 2010 Colonoscopy 2015 Pneumococcal 50+ (2 of 2 - PCV) 01/31/2020 11/12/2009 Shingrix (#1) 01/31/2020 DTap,Tdap,and Td (3 - Td or Tdap) 04/26/2021 04/26/2011, 04/14/2009 Influenza Vaccine (#1) 2025 RSV Vaccine (60+ or ) (1 - 1-dose 75+ series) 2045 Pneumococcal 0-49 Discontinued 11/12/2009 HPV Aged Out No longer eligi ble based on patient's age to complete this topic Meningococcal conjugate valent 4 (MCV4) Aged Out No longer eligible based on patient's age to complete this topic RSV Immunization (<20 months) Aged Out No longer eligible based on patient's age to complete this topic Medical Devices Implanted Type Area Pig Caster Device Identifier Shelf Expiration Date Model / Serial / Lot Graft Tissue Osteocel Pro Sm - [id number] Implanted:Qty : 1 on 03/23/2025 by Brandon Eaton MD at [facility] Graft N/A: Spine Lumbar [employer] SU[employer]PLIES 08/07/2029 [id number] / [id number] / Graft Tissue Osteocel Pro Sm - [id number] Implanted:Qty : 1 on 03/23/2025 by Brandon Eaton MD at [facility] Graft N/A: Spine Lumbar [employer] SU[employer]IES 08/07/2029 [id number] / [id number] / Screws,All - [id number] Implanted:Qty : 2 on 03/23/2025 by Brandon Eaton MD at [facility] N/A: Spine Lumbar [employer] [id number] / / Description:MODULUS ALIF 6.0 X 20mm BOLT Implant,Cage All #1 - [id number] Implanted:Qty : 1 on 03/23/2025 by Brandon Eaton MD at [facility] N/A: Spine Lumbar [employer] [id number] / / Description:MODULUS ALIF 8 x 34 x 24mm 15 degree Screws,All 2 - [id number] Implanted:Qty : 4 on 03/23/2025 by Brandon Eaton MD at [facility] N/A: Spine Lumbar [employer] [id number] / / Description:RELISMITA LOCK SCRE W Screws,All 3 - [id number] Implanted:Qty : 2 on 03/23/2025 by Brandon Eaton MD at [facility] N/A: Spine Lumbar [employer] [id number] / / Description:RELINE MAS SCREW S 6.5 x 45 Screws,All 4 - [id number] Implanted:Qty : 2 on 03/23/2025 by Brandon Eaton MD at [facility] N/A: Spine Lumbar [employer] [id number] / / Description:RELINE MAS SCREW 7.5 x 40 Ollie/Nail,Any - [id number] Implanted:Qty : 2 on 03/23/2025 by Brandon Eaton MD at [facility] N/A: Spine Lumbar [employer] [id number] / / Description:RELINE MAS TI RO D 5.5 x 35 Allograft - [id number] Implanted:Qty : 1 on 03/23/2025 by Brandon Eaton MD at [facility] N/A: Spine Lumbar [employer] 03/13/2027 [id number] / / [id number] Description:I FACTOR BONE GR AFT 2.5cc Procedures [...] the content of this report, please contact [facility] radiology by calling [phone] FINDINGS: ALIGNMENT: No abnormal curvature BONES: Unremarkable. [...] about the content of this report, pleasecontact [facility] radiology by calling [phone] FINDINGS: ALIGNMENT: No abnormal curvature BONES: Unremarkable. [...] tissue changes compatible with surgical approach Sola L. Jason PA-C CT Final Result * FL OR XRAY FLUORO SUPPORT (03/23/2025 10:00 AM EDT) Narrative Vane Sidhu ARRT - 03/23/2025 10:00 AM EDT This procedure has been auto-finalized, and is for reference only. As such, there is no formally dictated Radiant result report. If an Ambulatory procedure order, results may be included in either office, or H&P notes. us Brandon Eaton MD RAD Final Resul t [...] the content of this report, please contact [facility] radiology by calling [phone] FINDINGS: Spinal fixation system in grossly satisfactory position. No evidence of retroperitoneal hematoma. OTHER: None Procedure Note Hien Camara MD - 03/23/2025 HISTORY: L5-S1 POST COMPARISON: None TECHNIQUE: Technically limited portable intraoperative CT scan FLUOROSCOPY TIME: 37 seconds NOTE: If there are questions about the content of this report, pleasecontact [facility] radiology by calling [phone] FINDINGS: Spinal fixation system in grossly satisfactory position. No evidence ofretroperitoneal hematoma. OTHER: None IMPRESSION No unexpected findings on limited intraoperative CT scan us Brandon Eaton MD RAD Final Resul t [...] the content of this report, please contact [facility] radiology by calling [phone] FINDINGS: 8 intraoperative fluoroscopic images of the lumbosacral junction provided during discectomy. Anterolisthesis of L5 on S1 measures 17 mm Fluoroscopy time 30 seconds Procedure Note Hien Camara MD - 03/23/2025 HISTORY: L5-S1 ANT COMPARISON: CT from 08/01/2021 NOTE: If there are questions about thecontent of this report, please contact [facility] radiology by [phone] FINDINGS: 8 intraoperative fluoroscopic images of the lumbosacral junction providedduring discectomy. Anterolisthesis of L5 on S1 measures 17 mm Fluoroscopy time 30 seconds IMPRESSION Known L5 spondylolysis with grade 2 spondylolisthesis Status post recent discectomy and spacer placement L5-S1 Brandon Eaton MD RAD Final Resul t * ABO/Rh (03/23/2025 6:00 AM EDT) Pathologist [facility] ABO/RH(D) O POSITIVE BLOOD BAN K GSH Comment:Tested at [place] [id number] Blood 03/23/2025 6:00 AM EDT 03/23/2025 6:13 AM EDT Brandon Eaton MD BLOOD BANK TEST ORDERABLES Final Result [facility] [address] [place] [address] BLOOD BANK GSH [address] [place] [address] * (ABNORMAL) PROTIME & INR (03/07/2025 11:30 AM EDT) PROTIME 14.6(H) 11.7 - 14.2 Seconds CHEMISTRY HEMATOLOGY INR 1.1 0.8 - 1.2 CHEMISTRY HEMATOLOGY Comment: INR THERAPEUTIC RANGES: ROUTINE ANTICOAGULATION: 2.0 TO 3.0 Tested at [address] [address] Whole Blood 03/07/2025 11:3 0 AM EDT 03/07/2025 11:37 AM EDT Brandon Eaton MD LAB BLOOD ORDERABLES Final Result Performing Organization Address City/[facility]/ZIP Co de Phone Number [facility] [address] [place] [address] CHEMISTRY HEMATOLOGY [address] [place] [address] * PTT (03/07/2025 11:30 AM EDT) [facility] PTT 27.1 23.6 - 34.0 Seconds CHEMISTRY HEMATOLOGY Comment:Tested at [place] [address] Whole Blood 03/07/2025 11:3 0 AM EDT 03/07/2025 11:37 AM EDT Brandon Eaton MD LAB BLOOD ORDERABLES Final Result Performing Organization Address City/[facility] Co de Phone Number [facility] [address] [place] [address] CHEMISTRY HEMATOLOGY [address] [place] [address] * (ABNORMAL) BAMP (NA,K,CL,CO2,GLU,BUN,CREAT,CA) (03/07/2025 11:30 AM EDT) [facility] BLD UREA NITROGEN 16 8 - [...] recommended by the National Kidney Foundation - [place] [employer] of Nephrology Task Force. Tested at [facility] [address] [facility] [place] [address] Whole Blood 03/07/2025 11:3 0 AM EDT 03/07/2025 11:37 AM EDT Brandon Eaton MD LAB BLOOD ORDERABLES Final Result Performing Organization Address City/[facility]/ZIP Co de Phone Number [facility] [address] [place] [address] CHEMISTRY HEMATOLOGY [address] [place] [address] * CBC (03/07/2025 11:30 AM EDT) WBC [...] - 11.5 fL CHEMISTRY HEMATOLOGY Comment:[facility]ed at [facility] [address] [facility] [address] Whole Blood 03/07/2025 11:3 0 AM EDT 03/07/2025 11:37 AM EDT Brandon Eaton MD LAB BLOOD ORDERABLES Final Result Performing Organization Address City/[facility]/ZIP Co de Phone Number [facility] [address] [place] [address] CHEMISTRY HEMATOLOGY [address] [place] [address] * P.A.T. TYPE & SCREEN (03/07/2025 11:30 AM EDT) EXPIRATION AT 23:59 03/26/2025,23 59 BLOOD BANK GSH EXPIRATION AT 23:59 Tested at [facility] [address] [facility] [address] BLOOD BANK GSH ABO/RH(D) O POSITIVE BLOOD BAN K GSH ANTIBODY SCREEN NEGATIVE BLOOD BANK GSH ANTIBODY SCREEN Tested at [facility] [address] [facility] [address] BLOOD BANK GSH Whole Blood 03/07/2025 11:3 0 AM EDT 03/07/2025 11:37 AM EDT Brandon Eaton MD BLOOD BANK TEST ORDERABLES Final Result [facility] [address] [place] [address] BLOOD BANK GSH [address] [place] [address] from Last 3 Months Insurance [facility] ALL OTHERS NOT MEDICARE Advance Directives * Full Code (Latest Code Status on File) Date Activated Date Inactivated Comments 03/23/2025 10:01 AM 03/24/2025 3:59 PM Care Teams Trailer Mechanic Relationship Specialty Start Date End Date Esdras Holland MD [facility] [address] [place] [address] PCP - General Family Medicine 03/23/25
== END 2025-05-02 23:59 | disposition home or self-care (01) ==
LOC: RAD 13:42
PROVIDERS: PCP Family Medicine; Visit Provider Physician Assistant Surgical
DX: M47.816 Spondylosis without myelopathy or radiculopathy, lumbar region (principal); M48.061 Spinal stenosis, lumbar region without neurogenic claudication; M48.07 Spinal stenosis, lumbosacral region
CPT/HCPCS: 72110